=== PATIENT | female | born 1955 | race Caucasian/White ===

== ENCOUNTER 2021-12-28 17:01 | Inpatient (IN) | payer BC, SELFPAY ==
[2021-12-28] VITALS (19 sets, daily range): BP systolic 58–154; BP diastolic 34–106; PULSE 55–89; RESP 9–20; TEMP 36.7; O2SAT 90–96; BMI 37.4
[2021-12-28] MEDS: 0.9 % SODIUM CHLORIDE 1000 ml 1,000 ML IV (18:10)
--- NOTE | 2021-12-28 18:26 | XR_ITS ---
Final Report Patient: KRUNAL GIANG Facility:?[facility] Patient ID:?[id number] Site Patient ID:?[id number]. Site :?[id number] Study:?XRay Chest PORTABLE-12/28/2021 7:12:28 PM Ordering Physician:Juan Carlos Gillette Final Report: INDICATION: Hemoptysis. TECHNIQUE: Chest 1 views. COMPARISON: Chest x-ray from 06/13/2021. FINDINGS: Lungs: Volume loss in the right lung, with mild elevation of the diaphragm. Reticulonodular opacities in the right lung appears similar to prior. No focal consolidation. Pleura: Small right pleural effusion or pleural scarring appears stable. Heart and Mediastinum: The heart is enlarged. The vessels are unremarkable. Bones: Unremarkable. IMPRESSION: Right lung volume loss, with reticulonodular opacities, possibly chronic changes with superimposed infection. Dictated by Raghu Prabhakar MD @ 12/28/2021 7:47:57 PM (Electronic Signature)
--- NOTE | 2021-12-28 18:41 | ED_ITS ---
HPI - General Adult General Time Seen by Provider: 18:40 Date Seen: 12/28/21 Chief complaint: Cough Stated complaint: COUGHING UP BLOOD Time Seen by Provider: 12/28/21 18:01 Source: patient and family Mode of arrival: ambulatory Limitations: no limitations History of Present Illness HPI narrative: Patient is a 66-year-old female presents here ambulatory for evaluation of hemoptysis. Had this now for 3-4 days it primarily occurs in the morning when she coughs up phlegm her entire phlegm is not all bloody, there is blood within some of the phlegm. The day goes on she has episodes of phlegm without blood. She finds herself maybe a little bit more short of breath than normal, some maybe slight right-sided chest discomfort. She has not had any fevers or chills there has been no choking episodes of food. She denies any leg swelling. She has no previous history of DVT as far she knows. Is not on anticoagulants of any sort. She has no radiation of discomfort, she describes it as dull, on it. No diaphoresis or vomiting associated with this. She does have a history of a heart attack, but this. Her tells me this is because her enzymes elevated when she had pneumonia associated with her last visit here. she has a previous history of lung abscess on the left, and subsequent surgery a [facility]. This was thought secondary to aspiration as she has had a previous stroke Onset (ago): day(s) Location: chest Radiation: non-radiation Severity: moderate Quality: dull Pain Consistency: constant Exacerbating factors: none Associated symptoms: other ( hemoptysis) Related Data Home Medications Medication Instructions Recorded Confirmed albuterol sulfate 90 mcg/actuation INHALATION 12/28/21 aerosol inhaler amlodipine 5 mg tablet mg 12/28/21 atorvastatin 40 mg tablet mg 12/28/21 benzonatate 100 mg capsule mg PO 12/28/21 buspirone 15 mg tablet mg 12/28/21 duloxetine 60 mg capsule,delayed mg PO 12/28/21 release furosemide 20 mg tablet mg 12/28/21 hydroxychloroquine 200 mg tablet mg PO 12/28/21 hydroxyzine HCl 50 mg tablet mg 12/28/21 ketoconazole 2 % topical cream applic TOPICAL 12/28/21 levothyroxine 150 mcg tablet mcg 12/28/21 losartan 25 mg tablet mg 12/28/21 miconazole nitrate 2 % topical TOPICAL 12/28/21 powder (Anti-Fungal) mirtazapine 30 mg tablet mg 12/28/21 omeprazole 20 mg capsule,delayed mg 12/28/21 release oxycodone 10 mg tablet mg 12/28/21 oxycodone 20 mg tablet,crush mg PO 12/28/21 resistant,extended release 12 hr (OxyContin) pilocarpine HCl 5 mg tablet mg 12/28/21 pregabalin 300 mg capsule mg 12/28/21 tamsulosin 0.4 mg capsule mg PO 12/28/21 tizanidine 4 mg tablet mg 12/28/21 Allergies Allergy/AdvReac Type Severity Reaction Status Date / Time Sulfa (Sulfonamide Allergy Intermediate Rash Verified 12/28/21 17:24 Antibiotics) preservative Allergy Uncoded 12/28/21 17:24 Review of Systems Status of ROS: Reports: 10 or more systems reviewed and unremarkable except as noted in History and below [facility] Medical History (Updated 12/28/21 @ 22:11 by Nain Root MD) Aphasia as late effect of cerebrovascular accident Aspiration pneumonia Chronic pain Consolidation of right upper lobe of lung COPD (chronic obstructive pulmonary disease) Crohn disease Depression Empyema lung Hyperlipemia Hypothyroid Interstitial lung disease Obesity Sjogrens syndrome Stroke with left hemiparesis Surgical History (Updated 12/28/21 @ 22:11 by Marito Armas MD) H/O lumbar discectomy H/O meniscectomy of right knee H/O vaginal hysterectomy History of total right knee replacement (TKR) S/P breast lumpectomy S/P small bowel resection Status post cholecystectomy Social History Smoking Status: Unknown if ever smoked How often do you have a drink containing alcohol: never AUDIT-C Alcohol total score: 0 Non-prescribed substance use: denies use Exam Const: Vital Signs, click to edit/add: Vital Signs - 24 hr 12/28/21 17:25 12/28/21 17:45 12/28/21 18:00 Temperature 98.0 F Pulse Rate [Right Pulse Oximeter] 69 69 58 L Respiratory Rate 18 18 12 Blood Pressure [Ri ght Upper Arm] 81/54 L 79/61 L 58/35 L Pulse Oximetry 93 92 93 12/28/21 18:15 12/28/21 18:30 12/28/21 19:00 Temperature Pulse Rate [Right Pulse Oximeter] 56 L 60 55 L Respiratory Rate 12 12 20 Blood Pressure [Ri ght Upper Arm] 73/37 L 72/34 L 112/85 Pulse Oximetry 91 96 91 12/28/21 19:15 12/28/21 19:30 12/28/21 19:45 Temperature Pulse Rate [Right Pulse Oximeter] 61 55 L 61 Respiratory Rate 12 12 9 L Blood Pressure [Ri ght Upper Arm] 87/53 L 93/54 L 98/67 Pulse Oximetry 95 95 90 12/28/21 20:00 Temperature Pulse Rate [Right Pulse Oximeter] 71 Respiratory Rate 14 Blood Pressure [Ri ght Upper Arm] 109/68 Pulse Oximetry 95 Documenting provider has reviewed patient's vital signs: yes Common normals : no apparent distress, average body habitus, oriented x3, no limitations and alert General appearance: cooperative and comfortable Nutritional ap pearance: obese centrally obese Orientation/consciousness: Yes awake HENMT: Common normals: normocephalic, head/scalp atraumatic, external ears normal, EAC's normal, TM's normal bilaterally and external nose normal Head and scalp: normocephalic and atraumatic Face and sinus: normal facial exam, sinuses nontender and face symmetric Nose: external nose normal and nares normal External ear: external ears normal and no preauricular adenopathy External auditory canal: EAC's normal Tympanic membrane: TM's normal bilaterally Mouth: oral and palatal mucosa normal Throat: posterior oropharynx normal, tonsils normal and uvula midline Eye: Common normals: PERRL, EOMs intact bilaterally and conjunctivae normal General eye: normal appearance of both eyes Conjunctiva: conjunctiva(e) nor mal Pupil: PERRL EOM: EOM abnormal Neck & C-Spine: Common normals: full ROM, no lymphadenopathy, supple, no meningeal signs and no JVD General: normal visual inspection, trachea midline, anterior neck swelling and lymphadenopathy Cervical spine: cervical ROM normal and normal cervical lordosis Lymph: Lymphatic: no lymphadenopathy noted and no lymphedema noted Chest: Common normals: inspection of chest normal and palpation of chest normal Resp: Common normals: normal respiratory effort, no retractions, no use of accessory muscles, clear to auscultation bilaterally and percussion normal Effort & inspection: able to speak in complete sentences and symmetric chest movement Auscultation: clear to auscultation bilaterally Percussion: percussion normal Cardio: Common normals: no JVD, regular rate, regular rhythm, no rub and peripheral pulses 2+ throughout Rate: regular rate Rhythm: regular rhythm Peripheral pulses: pulses 2+ throughout GI: Common normals: Normal to inspection, nondistended, normoactive bowel sounds present, soft to palpation, non-tender, no hepatosplenomegaly, no masses and no bruits Inspection: normal to inspection Auscultation: normoactive bowel sounds Palpation: soft, firm and no hepatosplenomegaly : Common normals: no CVA tenderness and external appearance normal Bladder/kidney exam: no CVA tenderness Back & Pelvis: Common normals: no CVA tenderness Extremity: Common normals: normal to inspection, full ROM, normal capillary refill, no joint enlargement, no clubbing, cyanosis or edema, no calf tenderness and no pedal edema Neuro: Common normals: oriented x3 Sensorium/orientation: awake and alert Meningeal signs: no meningeal signs Skin: Common normals: no rashes or lesions noted, no wounds, skin turgor normal, no jaundice, no petechiae and no mottling General skin exam: no rashes or lesions noted and turgor normal Course Vital Signs Vital signs: Initial Vital Signs Temperature 98.0 F 12/28/21 17:25 Temperature Source Oral 12/28/21 17:25 Pulse Rate 69 12/28/21 17:25 Respiratory Rate 18 12/28/21 17:25 Blood Pressure 81/54 L 12/28/21 17:25 Blood Pressure Mean 63 12/28/21 17:25 Blood Pressure Position Sitting 12/28/21 17:25 Pulse Oximetry 93 12/28/21 17:25 Oxygen Delivery Method 12/28/21 17:25 Vital Signs Temperature 98.0 F 12/28/21 17:25 Pulse Rate 69 12/28/21 17:25 Respiratory Rate 18 12/28/21 17:25 Blood Pressure 81/54 L 12/28/21 17:25 Pulse Oximetry 93 12/28/21 17:25 Temperature 98.0 F 12/28/21 17:25 Pulse Rate 71 12/28/21 20:00 Respiratory Rate 14 12/28/21 20:00 Blood Pressure 109/68 12/28/21 20:00 Pulse Oximetry 95 12/28/21 20:00 Medical Decision Making MDM Narrative Medical decision making narrative: Patient is seen and assessed. She has hemoptysis, and vague right-sided chest discomfort too. Suspect that she may have had an aspiration episode. Again sub clinically as she has a history of this in the past which led to her thoracic surgery for her empyema. Her chest x-ray is abnormal. Her CT scan does show evidence of consolidation although it is hard to tell if this is new or old. She has not had any further episodes of hemoptysis but her hemoglobin is on the lower side at 9.4. I discussed her case with my hospitalist. He agreed to admit her overnight to the hospital for further treatment and diagnostic needs. She is stable I do not think that she has sepsis kick was once we changed out her blood pressure cuff she had normal blood pressures. Her lactate being normal also mitigates against this. During the evaluation of this patient I considered multiple differential diagnosis is. The life-threatening differential diagnosis include coronary disease/MO, pulmonary embolism, pneumothorax, pneumonia, and aortic dissection. Other differential diagnosis included but were not limited to pericarditis, myocarditis, chest wall pain, GERD, esophageal rupture, rib fracture contusion, pleurisy, as well as other etiologies. Medical Records Medical records reviewed: Yes I reviewed the patient's medical records Lab Data Lab results reviewed: Yes I reviewed the patient's lab results Labs: Lab Results 12/28/21 12/28/21 12/28/21 Range/Units 18:10 18:10 18:10 WBC 6.05 (4.50-11.00) K/uL RBC 3.43 L (4.00-5.20) m/uL Hgb 9.4 L (12.0-16.0) gm/dL Hct 31.2 L (33.0-51.0) % MCV 91 (80-100) fL MCH 27 (26-34) pg MCHC 30 L (32-36) gm/dL RDW Coeff of Kaley 13.8 (11.5-15.5) % Plt Count 259 (140-440) K/uL Neut % (Auto) 70.8 (42.0-72.0) % Lymph % (Auto) 16.2 L (20-44) % [place] % (Auto) 7.8 (0.0-11.0) % Eos % (Auto) 4.3 (0.0-7.0) % Baso % (Auto) 0.7 (0.0-3.0) % Neut # (Auto) 4.29 (1.7-7.0) K/uL Lymph # (Auto) 1.00 (0.90-2.90) K/uL [place] # (Auto) 0.50 (0.00-0.90) K/UL Eos # (Auto) 0.26 (0.00-0.50) K/uL Baso # (Auto) 0.04 (0.00-0.30) K/uL Abs Immat Gran (auto) 0.01 (0.00-0.30) K/uL INR 0.96 (0.91-1.10) APTT 37 H (23-33) Seconds Sodium 138 (135-149) mmol/L Potassium 4.3 (3.6-5.1) mmol/L Chloride 107 (96-114) mmol/L Carbon Dioxide 26 (20-32) mmol/L BUN 27 (7-30) mg/dL Creatinine 1.1 (0.5-1.5) mg/dL Estimated Creat Clear 46.49 Glucose 110 (60-115) mg/dL Calcium 8.6 (8.4-10.6) mg/dL Troponin I < 0.01 L (0.01-0.04) ng/mL NT-Pro-B Natriuret Pep 277 H (0-125) PG/mL SARS-CoV-2 (PCR) (Negative) 12/28/21 Range/Units 18:32 WBC (4.50-11.00) K/uL RBC (4.00-5.20) m/uL Hgb (12.0-16.0) gm/dL Hct (33.0-51.0) % MCV (80-100) fL MCH (26-34) pg MCHC (32-36) gm/dL RDW Coeff of Kaley (11.5-15.5) % Plt Count (140-440) K/uL Neut % (Auto) (42.0-72.0) % Lymph % (Auto) (20-44) % [place] % (Auto) (0.0-11.0) % Eos % (Auto) (0.0-7.0) % Baso % (Auto) (0.0-3.0) % Neut # (Auto) (1.7-7.0) K/uL Lymph # (Auto) (0.90-2.90) K/uL [place] # (Auto) (0.00-0.90) K/UL Eos # (Auto) (0.00-0.50) K/uL Baso # (Auto) (0.00-0.30) K/uL Abs Immat Gran (auto) (0.00-0.30) K/uL INR (0.91-1.10) APTT (23-33) Seconds Sodium (135-149) mmol/L Potassium (3.6-5.1) mmol/L Chloride (96-114) mmol/L Carbon Dioxide (20-32) mmol/L BUN (7-30) mg/dL Creatinine (0.5-1.5) mg/dL Estimated Creat Clear Glucose (60-115) mg/dL Calcium (8.4-10.6) mg/dL Troponin I (0.01-0.04) ng/mL NT-Pro-B Natriuret Pep (0-125) PG/mL SARS-CoV-2 (PCR) Negative SARS-CoV-2 (Negative) Imaging Data CT scan - chest: My impression: Abnormal CT with right lung consolidation. There is some infiltrates also. Chest x-ray is abnormal with right lung infiltrates. Consolidation noted with scarring also. Radiologist's impression: Patient: KRUNAL GIANG Facility:?[facility] Patient ID:?[id number] Site Patient ID:?[id number]. Site :?[id number] Study:?CT Chest PE W/ ISOVUE 370 95CC-12/28/2021 9:31:51 PM Ordering Physician:Juan Carlos Gillette Final Report: INDICATION: Hemoptysis. TECHNIQUE: CT chest PE was acquired with 95 cc Isovue 370 IV contrast. COMPARISON: CT chest 06/08/2021. FINDINGS: Heart and vasculature: Contrast opacification of the pulmonary arterial tree is adequate. No sign of pulmonary embolism. Heart size is normal. Thoracic aorta an d pulmonary artery are normal in caliber. Lungs and pleural: Reticulonodular opacities throughout right lung. Masslike consolidation right upper lobe measuring 3.2 by 2.5 cm. Right pleural thickening . No pleural effusion present atelectasis the right middle lobe with air bronchograms. More focal masslike consolidation in the posterior lower right upper lobe measuring 1.8 x 2.0 cm. Scarring/atelectasis in the left lung. Left lung is mostly clear. Lymph nodes/mediastinum: Enlarged right hilar lymph node measuring 13 mm in short axis. Right paratracheal lymph node measuring 14 mm in short axis. Chest wall: No masses. Upper abdomen: Moderate size hiatal hernia present is absent. Bones: Unremarkable for age. IMPRESSION: 1. No evidence of pulmonary embolism. 2. Diffuse reticulonodular opacities in right lung with pleural thickening and areas of masslike consolidation in the right upper lobe is improved compared to CT 06/08/2021. Findings may be due to infection although are indeterminate. 3. Nonspecific mild right paratracheal and right hilar lymphadenopathy. 4. Right middle lobe atelectasis. Please note that all CT scans at this facility use dose modulation, iterative reconstruction, and/or weight-based dosing when appropriate to reduce radiation dose to as low as reasonably achievable. Dictated by Chris Gupta MD @ 12/28/2021 9:45:19 PM (Electronic Signature) ECG Data Attestation: I personally reviewed and interpreted this ECG as follows: (Normal sinus rhythm normal EKG with no acute ST wave changes. With a ventricular rate of 61) Prior ECG tracings: available for review Critical Care Time Critical Care Time Critical Care Time: Yes (45 min) Attestation: The patient required my highest level preparedness to intervene emergently and I personally spent this critical care time directly and personally managing the patient. This critical care time included: Obtaining a history; Examining the patient; Pulse oximetry; Ordering and reviewing of studies; Arranging urgent treatment with development of a management plan; Evaluation of patients response to treatment; Frequent reassessment discussions with other providers. This critical care time was performed to assess and manage the high probability of imminent life-threatening deterioration that could result in multiorgan failure. It was exclusive of separate billable procedures and treating other patients and teaching time. Total Critical Care Time in Minutes: 45 Discharge Plan Discharge Clinical Impression: Consolidation of right upper lobe of lung, Anemia, Aspiration pneumonia Patient Disposition: Admitted As Inpatient Prescriptions: No Action atorvastatin 40 mg tablet 0RF Label Comments: TAKE 1 TABLET BY MOUTH EVERY DAY pilocarpine HCl 5 mg tablet 0RF Label Comments: TAKE 1 TABLET BY MOUTH THREE TIMES A DAY tizanidine 4 mg tablet 0RF Label Comments: Take 1-2 tablet by mouth every six to eight hours as needed for muscle spasms Anti-Fungal 2 % powder TOPICAL 0RF Label Comments: APPLY TO AFFECTED AREAS 2 TIMES DAILY hydroxyzine HCl 50 mg tablet 0RF Label Comments: TAKE 1-2 TABLETS (50-100 MG) BY MOUTH EVERY 6 HOURS IF NEEDED FOR ITCHING OR OTHER amlodipine 5 mg tablet 0RF Label Comments: TAKE 1 TABLET BY MOUTH EVERY DAY tamsulosin 0.4 mg capsule PO 0RF Label Comments: TAKE 1 CAPSULE BY MOUTH ONCE DAILY AFTER A MEAL. benzonatate 100 mg capsule PO 0RF Label Comments: TAKE 1-2 CAPSULES (100-200 MG) BY MOUTH 3 TIMES DAILY IF NEEDED FOR COUGH. mirtazapine 30 mg tablet 0RF Label Comments: TAKE 1 TABLET BY MOUTH AT BEDTIME. levothyroxine 150 mcg tablet 0RF Label Comments: TAKE 1 TABLET (150 MCG) BY MOUTH BEFORE BREAKFAST. losartan 25 mg tablet 0RF Label Comments: TAKE 1 TABLET BY MOUTH EVERY DAY omeprazole 20 mg capsule,delayed release(DR/EC) 0RF Label Comments: TAKE 1 CAPSULE (20 MG) BY MOUTH ONCE DAILY BEFORE A MEAL. furosemide 20 mg tablet 0RF Label Comments: TAKE 1 TABLET (20 MG) BY MOUTH EVERY MORNING. IF NEEDED. MAY TAKE IF WEIGHT INCREASES BY 3# OR MORE hydroxychloroquine 200 mg tablet PO 0RF Label Comments: TAKE 1 TABLET BY MOUTH TWICE A DAY albuterol sulfate 90 mcg/actuation HFA aerosol inhaler INHALATION 0RF Label Comments: INHALE 1-2 PUFFS BY MOUTH EVERY 4 HOURS IF NEEDED. ketoconazole 2 % cream TOPICAL 0RF Label Comments: APPLY TO AFFECTED AREA TWICE A DAY buspirone 15 mg tablet 0RF Label Comments: TAKE 1 TABLET BY MOUTH TWICE A DAY duloxetine 60 mg capsule,delayed release(DR/EC) PO 0RF Label Comments: TAKE 2 CAPSULES (120MG) BY MOUTH ONCE DAILY. pregabalin 300 mg capsule 0RF Label Comments: TAKE 1 CAPSULE BY MOUTH TWICE A DAY oxycodone 10 mg tablet 0RF Label Comments: TAKE 1 TABLET BY MOUTH EVERY FOUR HOURS NEEDED FOR PAIN MAXIMUM OF 6 TABLETS/DAY. oxycodone [OxyContin] 20 mg tablet,oral only,ext.rel.12 hr PO 0RF Label Comments: TAKE 1 TABLET BY MOUTH THREE TIMES A DAY Follow Up/Referrals: Provider,Not a Local [Primary Care Provider] -
--- NOTE | 2021-12-28 18:42 | ED.NURSE ---
1757-MD aware of BP 70s/30s. Pt a + o x4. 1812- MD at bedside for exam.
[2021-12-28 19:01] LABS: Basophils Absolute Auto 0.04 K/uL (0.00-0.30); Basophils Percent Auto 0.7 % (0.0-3.0); Eosinophils Absolute Auto 0.26 K/uL (0.00-0.50); Eosinophils Percent Auto 4.3 % (0.0-7.0); Hematocrit 31.2 % (33.0-51.0); Hemoglobin* 9.4 gm/dL (12.0-16.0); Immature Granulocytes Abs Auto 0.01 K/uL (0.00-0.30); Lymphocytes Percent Auto 16.2 % (20-44); Mean Corpuscular HGB Conc 30 gm/dL (32-36); Mean Corpuscular Hemoglobin 27 pg (26-34); Mean Corpuscular Volume 91 fL (80-100); Monocytes Percent Auto 7.8 % (0.0-11.0); Neutrophils Absolute Auto 4.29 K/uL (1.7-7.0); Neutrophils Percent Auto 70.8 % (42.0-72.0); Platelet Count* 259 K/uL (140-440); RDW Coefficient of Variation % 13.8 % (11.5-15.5); Red Blood Count 3.43 m/uL (4.00-5.20); White Blood Count* 6.05 K/uL (4.50-11.00)
--- NOTE | 2021-12-28 19:17 | ED.NURSE ---
1813-1st set of blood cx drawn. 1823- COVID swab obtained and sent to lab. 1834- 2nd IV started by CLAY Dang. #20G IV established in R AC. 2nd set of blood cx drawn at that time. 1854- Moved to Rm 8. at bedside. 1909-Pt continues a + o x4. aware of continued hypotension. Report given to CLAY De Luna.
[2021-12-28 19:24] LABS: Slide Review Reflex No
[2021-12-28] MEDS: PIPERACILLIN/TAZOBACTAM 3.375 GM in 0.9 % SODIUM CHLORIDE Mini-bag 100 ML IVPB (19:25)
[2021-12-28 19:50] LABS: SARS PCR* Negative SARS-CoV-2 (Negative)
--- NOTE | 2021-12-28 19:53 | CT_ITS ---
Final Report Patient: KRUNAL GIANG Facility:?[facility] Patient ID:?[id number] Site Patient ID:?[id number]. Site :?[id number] Study:?CT Chest PE W/ ISOVUE 370 95CC-12/28/2021 9:31:51 PM Ordering Physician:Juan Carlos Gillette Final Report: INDICATION: Hemoptysis. TECHNIQUE: CT chest PE was acquired with 95 cc Isovue 370 IV contrast. COMPARISON: CT chest 06/08/2021. FINDINGS: Heart and vasculature: Contrast opacification of the pulmonary arterial tree is adequate. No sign of pulmonary embolism. Heart size is normal. Thoracic aorta and pulmonary artery are normal in caliber. Lungs and pleural: Reticulonodular opacities throughout right lung. Masslike consolidation right upper lobe measuring 3.2 by 2.5 cm. Right pleural thickening. No pleural effusion present atelectasis the right middle lobe with air bronchograms. More focal masslike consolidation in the posterior lower right upper lobe measuring 1.8 x 2.0 cm. Scarring/atelectasis in the left lung. Left lung is mostly clear. Lymph nodes/mediastinum: Enlarged right hilar lymph node measuring 13 mm in short axis. Right paratracheal lymph node measuring 14 mm in short axis. Chest wall: No masses. Upper abdomen: Moderate size hiatal hernia present is absent. Bones: Unremarkable for age. IMPRESSION: 1. No evidence of pulmonary embolism. 2. Diffuse reticulonodular opacities in right lung with pleural thickening and areas of masslike consolidation in the right upper lobe is improved compared to CT 06/08/2021. Findings may be due to infection although are indeterminate. 3. Nonspecific mild right paratracheal and right hilar lymphadenopathy. 4. Right middle lobe atelectasis. Please note that all CT scans at this facility use dose modulation, iterative reconstruction, and/or weight-based dosing when appropriate to reduce radiation dose to as low as reasonably achievable. Dictated by Chris Gupta MD @ 12/28/2021 9:45:19 PM (Electronic Signature)
[2021-12-28 20:32] LABS: Lactate Sepsis w/Reflex* 0.9
[2021-12-28 20:48] LABS: NT Pro B Type NatriureticPept* 277 PG/mL (0-125)
[2021-12-28 20:51] LABS: INR 0.96 (0.91-1.10); Prothrombin Time 13.2 Seconds
[2021-12-28 20:52] LABS: Partial Thromboplastin Time* 37 Seconds (23-33)
[2021-12-28 21:08] LABS: Blood Urea Nitrogen* 27 mg/dL (7-30); Calcium* 8.6 mg/dL (8.4-10.6); Carbon Dioxide* 26 mmol/L (20-32); Chloride* 107 mmol/L (96-114); Creatinine* 1.1 mg/dL (0.5-1.5); Est. Creatinine Clearance* 46.49; Estimated Glomerular Filt Rate 56.11; Potassium* 4.3 mmol/L (3.6-5.1); Sodium* 138 mmol/L (135-149)
[2021-12-28 21:09] LABS: Glucose* 110 mg/dL (60-115); Troponin I* < 0.01 ng/mL (0.01-0.04)
--- NOTE | 2021-12-28 22:45 | PC.NURSE ---
Phone report to CLAY Caraballo on m/s.
--- NOTE | 2021-12-28 23:15 | P.IMHP_ITS ---
Hospitalist- H&P: HPI History of Present Illness Time Seen by Provider: 23:37 Date Seen: 12/28/21 Chief complaint: COUGHING UP BLOOD Narrative: Cyndi Mcnally is a 66 year old female with 4 day history of hemoptysis. Patient reports that typically once a day for the last 4 days she has coughed up blood in mucus and filled a tissue paper with that in the morning. She has not had a fever. She has not had any worsening shortness of breath. She has not had chest pain. No previous history of hemoptysis. She takes aspirin 325 mg daily. April 2022 she had an empyema. She went to [facility] where they did thoracotomy and cleaned out her right pleural space. She has had since that time a right upper lobe mass of uncertain significance. serial CT of the chest shows improvement over the last 6 months but not resolution of that right upper lobe mass. She was told that her empyema was due to aspiration pneumonia. She did have a swallowing study in August which showed mild pharyngeal dysphagia with occasional transient penetration of thin liquids and no aspiration. She has a remote history of a stroke in 2006. This caused aphasia and left- sided weakness. Both of those are markedly improved. She reports ongoing fatigue and weakness since April of 2022. She did not get home from that hospitalization until new 's Marya. She is gradually improving her strength. She tells me now she mostly walks with a cane Or holding onto harden and furniture in her house. Review of Systems Narrative: She reports she has generally been feeling well other than her very slow recovery from her hospitalization in April. she reports no acute respiratory illness, chest pain, trouble breathing, nausea, vomiting, abdominal pain, diarrhea, constipation, melena, urinary problems. Complete review of systems otherwise unremarkable. [facility] Medical History (Updated 12/28/21 @ 23:47 by Marito Armas MD) Aphasia as late effect of cerebrovascular accident Aspiration pneumonia Chronic pain Consolidation of right upper lobe of lung COPD (chronic obstructive pulmonary disease) Crohn disease Depression Empyema lung Hemoptysis Hyperlipemia Hypotension Hypothyroid Interstitial lung disease Obesity Sjogrens syndrome Stroke with left hemiparesis Surgical History H/O lumbar discectomy H/O meniscectomy of right knee H/O vaginal hysterectomy History of total right knee replacement (TKR) S/P breast lumpectomy S/P small bowel resection Status post cholecystectomy Family History (Updated 12/28/21 @ 23:45 by Marito Armas MD) Other Alcohol use disorder Breast cancer High blood pressure Pancreatic cancer Social History Smoking Status: Unknown if ever smoked How often do you have a drink containing alcohol: never AUDIT-C Alcohol total score: 0 Non-prescribed substance use: denies use Meds Home Medications and Allergies Home Medications Medication Instructions Recorded Confirmed Type albuterol sulfate 90 mcg/actuation INHALATION 12/28/21 History aerosol inhaler amlodipine 5 mg tablet mg 12/28/21 History atorvastatin 40 mg tablet mg 12/28/21 History benzonatate 100 mg capsule mg PO 12/28/21 History buspirone 15 mg tablet mg 12/28/21 History duloxetine 60 mg capsule,delayed mg PO 12/28/21 History release furosemide 20 mg tablet mg 12/28/21 History hydroxychloroquine 200 mg tablet mg PO 12/28/21 History hydroxyzine HCl 50 mg tablet mg 12/28/21 History ketoconazole 2 % topical cream applic TOPICAL 12/28/21 History levothyroxine 150 mcg tablet mcg 12/28/21 History losartan 25 mg tablet mg 12/28/21 History miconazole nitrate 2 % topical TOPICAL 12/28/21 History powder (Anti-Fungal) mirtazapine 30 mg tablet mg 12/28/21 History omeprazole 20 mg capsule,delayed mg 12/28/21 History release oxycodone 10 mg tablet mg 12/28/21 History oxycodone 20 mg tablet,crush mg PO 12/28/21 History resistant,extended release 12 hr (OxyContin) pilocarpine HCl 5 mg tablet mg 12/28/21 History pregabalin 300 mg capsule mg 12/28/21 History tamsulosin 0.4 mg capsule mg PO 12/28/21 History tizanidine 4 mg tablet mg 12/28/21 History Allergies Allergy/AdvReac Type Severity Reaction Status Date / Time Sulfa (Sulfonamide Allergy Intermediate Rash Verified 12/28/21 17:24 Antibiotics) preservative Allergy Uncoded 12/28/21 17:24 Exam Narrative: Exam Narrative: she is alert and appears in no distress. She gives her own history. Eyes are normal. Oropharynx normal. Neck is supple without mass or adenopathy. Respirations show notable for relatively diffuse crackles in the mid to lower right lung base. Upper lung earl and left lung relatively clear to auscultation. Minimal wheezing in the right lung as well. Cardiovascular: S1, S2, regular rate and rhythm. No murmur gallop or rub. Abdomen: Bowel sounds active. Abdomen is soft without tenderness or mass. External genitalia normal. Extremities normal. 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 She has intact pedal pulses. Strength is relatively equal in upper and lower extremities except she has a footdrop on the left. Const: Vital Signs, click to edit/add: Vital Signs - 24 hr 12/28/21 17:25 12/28/21 17:45 12/28/21 18:00 Temperature 98.0 F Pulse Rate [Right Pulse Oximeter] 69 69 58 L Respiratory Rate 18 18 12 Blood Pressure [Ri ght Upper Arm] 81/54 L 79/61 L 58/35 L Pulse Oximetry 93 92 93 12/28/21 18:15 12/28/21 18:30 12/28/21 19:00 Temperature Pulse Rate [Right Pulse Oximeter] 56 L 60 55 L Respiratory Rate 12 12 20 Blood Pressure [Ri ght Upper Arm] 73/37 L 72/34 L 112/85 Pulse Oximetry 91 96 91 12/28/21 19:15 12/28/21 19:30 12/28/21 19:45 Temperature Pulse Rate [Right Pulse Oximeter] 61 55 L 61 Respiratory Rate 12 12 9 L Blood Pressure [Ri ght Upper Arm] 87/53 L 93/54 L 98/67 Pulse Oximetry 95 95 90 12/28/21 20:00 12/28/21 20:15 12/28/21 20:30 Temperature Pulse Rate [Right Pulse Oximeter] 71 69 70 Respiratory Rate 14 17 12 Blood Pressure [Ri ght Upper Arm] 109/68 111/70 118/66 Pulse Oximetry 95 95 90 12/28/21 20:45 12/28/21 21:00 12/28/21 21:30 Temperature Pulse Rate [Right Pulse Oximeter] 73 78 89 Respiratory Rate 13 16 16 Blood Pressure [Ri ght Upper Arm] 81/64 L 114/65 154/56 H Pulse Oximetry 93 93 95 12/28/21 21:45 12/28/21 22:00 12/28/21 22:15 Temperature Pulse Rate [Right Pulse Oximeter] 83 84 83 Respiratory Rate 10 L 11 L 18 Blood Pressure [Ri ght Upper Arm] 128/106 H 112/94 H 131/70 Pulse Oximetry 93 12/28/21 22:30 Temperature Pulse Rate [Right Pulse Oximeter] 81 Respiratory Rate 14 Blood Pressure [Ri ght Upper Arm] 120/100 H Pulse Oximetry Hospitalist - H&P: Result Labs Labs: Short CBC 12/28/21 Range/Units 18:10 WBC 6.05 (4.50-11.00) K/uL Hgb 9.4 L (12.0-16.0) gm/dL Hct 31.2 L (33.0-51.0) % Plt Count 259 (140-440) K/uL BMP 12/28/21 18:10 Sodium 138 Potassium 4.3 Chloride 107 Carbon Dioxide 26 BUN 27 Creatinine 1.1 Glucose 110 Calcium 8.6 Cardiac Enzymes 12/28/21 Range/Units 18:10 Troponin I < 0.01 L (0.01-0.04) ng/mL Assessment and Plan Assessment and plan (1) Aspiration pneumonia: Problem comment: swallowing evaluation showed mild pharyngeal dysphagia with occasional transient penetration of thin liquids and no aspiration 08/09/2021 Status: Acute (2) Consolidation of right upper lobe of lung: Status: Acute (3) Hemoptysis: Status: Acute (4) Hypotension: Status: Acute Plan 1. patient presents with 4 days of hemoptysis. This is not yet massive hemoptysis. The source for this is likely her right upper lobe where she has a mass and possible pneumonia. Will treat with antibiotics and monitor for ongoing bleeding. May need bronchoscopy to further evaluate if not clinically improving. Will hold aspirin and anticoagulation for now. 2. Possible pneumonia . Treat with antibiotics pending clinical course. In the ER there was concern about hypotension and concern about sepsis. Broad- spectrum antibiotics were initiated. brief hold on blood pressure medications and monitor blood pressure. 3. Consolidation or mass in the right upper lobe of uncertain etiology. May need outpatient evaluation for this with pulmonology. 4. Frailty. PT and OT to assess for safety in the home. 5. Polypharmacy. She has on relatively high doses of multiple medications that affect the brain particularly, especially oxycodone. Ongoing outpatient evaluation warranted
[2021-12-28] MEDS: MIRTAZAPINE 15 MG TABLET 30 MG PO (23:44)
[2021-12-28] MEDS: DULOXETINE 30 MG CAPSULE DR 120 MG PO (23:46)
[2021-12-28] MEDS: OXYCODONE 5 MG TABLET 10 MG PO (23:48)
[2021-12-29] VITALS (12 sets, daily range): BP systolic 145–173; BP diastolic 84–109; PULSE 57–156; RESP 16–20; TEMP 36.5–36.9; O2SAT 92–96; BMI 38.7
[2021-12-29] MEDS: PREGABALIN 50 MG CAPSULE 200 MG PO (00:06)
[2021-12-29] MEDS: PIPERACILLIN/TAZOBACTAM 3.375 GM in 0.9 % SODIUM CHLORIDE Mini-bag 100 ML IVPB ×4 (02:33→22:11)
[2021-12-29] MEDS: SODIUM CHLORIDE 0.9 % (FLUSH) 10 ML SYRINGE 5 ML IVF ×4 (02:34→21:19)
[2021-12-29] MEDS: 0.9 % SODIUM CHLORIDE 250 ml IV (02:34)
[2021-12-29] MEDS: ACETAMINOPHEN 500 MG TABLET 1000 MG PO (04:03)
[2021-12-29] MEDS: OXYCODONE 5 MG TABLET 10 MG PO ×4 (04:03→21:15)
[2021-12-29] MEDS: LEVOTHYROXINE 50 MCG TABLET PO (06:33)
[2021-12-29] MEDS: LEVOTHYROXINE 100 MCG TABLET PO (06:33)
[2021-12-29] MEDS: OMEPRAZOLE 20 MG CAPSULE DR PO (06:33)
[2021-12-29 06:43] LABS: Basophils Absolute Auto 0.04 K/uL (0.00-0.30); Basophils Percent Auto 0.6 % (0.0-3.0); Eosinophils Absolute Auto 0.33 K/uL (0.00-0.50); Eosinophils Percent Auto 4.8 % (0.0-7.0); Hematocrit 31.5 % (33.0-51.0); Hemoglobin* 9.5 gm/dL (12.0-16.0); Immature Granulocytes Abs Auto 0.01 K/uL (0.00-0.30); Lymphocytes Percent Auto 14.3 % (20-44); Mean Corpuscular HGB Conc 30 gm/dL (32-36); Mean Corpuscular Hemoglobin 28 pg (26-34); Mean Corpuscular Volume 91 fL (80-100); Monocytes Percent Auto 9.2 % (0.0-11.0); Neutrophils Absolute Auto 4.87 K/uL (1.7-7.0); Platelet Count* 225 K/uL (140-440); Red Blood Count 3.45 m/uL (4.00-5.20); White Blood Count* 6.86 K/uL (4.50-11.00)
[2021-12-29 06:47] LABS: Slide Review Reflex No
[2021-12-29 06:48] LABS: Immature Reticulocyte Fraction 5.2 % (3.0-15.9); Reticulocyte Percent 2.3 % (0.5-2.0); Reticulocytes Absolute 0.08 # (0.03-0.08)
[2021-12-29 07:08] LABS: Chloride* 109 mmol/L (96-114); Iron* 44 ug/dL (37-170); Sodium* 140 mmol/L (135-149)
[2021-12-29 07:09] LABS: Potassium* 4.4 mmol/L (3.6-5.1)
[2021-12-29 07:11] LABS: Carbon Dioxide* 27 mmol/L (20-32); Creatinine* 0.8 mg/dL (0.5-1.5); Est. Creatinine Clearance* 51.14; Estimated Glomerular Filt Rate 82.23
[2021-12-29 07:12] LABS: Blood Urea Nitrogen* 20 mg/dL (7-30); Calcium* 8.4 mg/dL (8.4-10.6); Glucose* 98 mg/dL (60-115)
[2021-12-29 07:18] LABS: Percent Iron Saturation 18 % (20-50); Total Iron Binding Capacity 249 ug/dL (265-497)
--- NOTE | 2021-12-29 07:27 | PC.NURSE ---
Shift note: The pt has been pleasant and cooperative. She was in RA before going to Bed with Spo2 in the 90s, The pt stated that she uses 2L of oxygen via NC at HS; So 2L of oxygen via NC was given with Spo2 in the 90s. No blood emesis or sputum noted since admission. Bp has been improved -see chart. No fever noted. Weakness noted; fall precaution in place - 1-assist with a gait belt and walker. The pt was reporting moderate chronic pain; the pain has been managed with schedule and PRN pain medication.
[2021-12-29] MEDS: BUSPIRONE 10 MG TABLET 15 MG PO ×2 (09:31→21:14)
[2021-12-29] MEDS: polyethylene glycoL 3350 17 GM PACK PO (09:31)
[2021-12-29] MEDS: HYDROXYCHLOROQUINE 200 MG TABLET PO ×2 (09:32→21:14)
[2021-12-29] MEDS: PREGABALIN 100 MG CAPSULE 200 MG PO ×2 (09:32→21:16)
[2021-12-29] MEDS: ASPIRIN EC 325 MG TABLET PO (09:33)
[2021-12-29] MEDS: CETIRIZINE HCL 10 MG TABLET PO (09:36)
[2021-12-29] MEDS: METOPROLOL TARTRATE 50 MG TABLET PO ×2 (09:36→21:14)
[2021-12-29] MEDS: TAMSULOSIN HCL 0.4 MG CAPSULE PO (09:39)
[2021-12-29] MEDS: SENNOSIDES/DOCUSATE TABLET 1 TAB PO (11:24)
--- NOTE | 2021-12-29 12:00 | PM.EN ---
Chart Event Note Chart Event Note: Daily Progress Note - Hospital Medicine Day #: 2 CC: Coughing up blood OVERNIGHT UPDATES FROM STAFF & MED, LAB, IMAGING UPDATES Since admission patient has not had any more coughing up of blood. I was able to speak with pulmonary medicine, someone from Dr. Brennan's team. We discussed her chronic aspiration, recent CT findings. We felt his if her recurrent aspiration and aspirin therapy were likely the cause of mild hemoptysis. We will discharge her on Augmentin and get her in for bronchoscopy. Review of Systems: See subjective Cardiac: No new chest pain/pressure/palpitations. Respiratory: no new dyspnea. No more coughing blood GI: No abdominal bloating Objective: Vitals: see above Lungs: Clear. Cardiac: S1S2. No harsh murmurs Trace edema Disposition/Potential discharge - Likely to return to previous living situation. A/P 1. Hemoptysis -chronic aspiration pneumonia likely causing this with her superimposed aspirin therapy. Trend hemoglobin, appears stable. Likely will discharge today or tomorrow with outpatient follow-up. Total time is 25 minutes with greater than 50% spent in counseling and coordination of care.
--- NOTE | 2021-12-29 15:45 | PC.NURSE ---
shift note: vss stable. pt up 1/walker to bathroom and into recliner. pt states she's sob with minimal activity. pt producing light yellow phlem with cough. RUL with crkls and dim in mid/lower lobes. pt has crkls to LLL. sats 91-96%. Pt on cont sats. pt using 2L pnc when resting in bed to keep sats > 90%. Pt has chronic back and leg pain that she's rating 4-8/10 and was medicated with prn oxycodone and scheduled oxycodone with minimal relief. Pt IV dc'd intact Rt AC. Pt tolerating regular diet. Pt states Lt lat calf with increased pain and increased swelling to lt foot. Qc Chemist checked leg and noticed Lt foot is 1+ edema with +PP and cap refill intact. Pt has no redness to lt calf and calf is soft on palpation. pt has drop foot to lt .
[2021-12-29] MEDS: DULOXETINE 30 MG CAPSULE DR 120 MG PO (21:15)
[2021-12-29] MEDS: MIRTAZAPINE 15 MG TABLET 30 MG PO (21:16)
[2021-12-29] MEDS: ATORVASTATIN CALCIUM 40 MG TABLET PO (21:19)
--- NOTE | 2021-12-29 22:49 | PC.NURSE ---
End of Shift: Patient pleasant and cooperative. Afebrile. Rating chronic pain 6-8/10 and controlled with scheduled OxyContin and PRN Oxycodone. Patient up to bathroom and chair with 1 assist, walker and gait belt. Tolerating regular diet with no nausea. Occasionally coughing up phlegm with no blood noted. O2 sats greater than 90% on room air.
[2021-12-30 00:30] VITALS: BP 160/76; PULSE 59; RESP 16; TEMP 36.8; O2SAT 96
[2021-12-30 00:47] VITALS: TEMP 36.8
[2021-12-30] MEDS: ACETAMINOPHEN 500 MG TABLET 1000 MG PO ×2 (00:47→08:13)
[2021-12-30] MEDS: OXYCODONE 5 MG TABLET 10 MG PO ×3 (01:38→13:20)
[2021-12-30] MEDS: PIPERACILLIN/TAZOBACTAM 3.375 GM in 0.9 % SODIUM CHLORIDE Mini-bag 100 ML IVPB ×2 (04:14→10:27)
[2021-12-30 05:07] VITALS: BP 163/96; PULSE 55; RESP 16; TEMP 36.7; O2SAT 96
[2021-12-30] MEDS: LEVOTHYROXINE 50 MCG TABLET PO (06:19)
[2021-12-30] MEDS: OMEPRAZOLE 20 MG CAPSULE DR PO (06:19)
[2021-12-30] MEDS: LEVOTHYROXINE 100 MCG TABLET PO (06:19)
[2021-12-30 06:26] LABS: Reticulocyte Hemoglobin Equivi 24.1 pg (29.0-35.0)
[2021-12-30 07:00] VITALS: BP 223/127; PULSE 65; PULSE 73; RESP 20; TEMP 36.5; O2SAT 94
--- NOTE | 2021-12-30 07:15 | PC.NURSE ---
Shift Note [id number]: Pt pleasant and cooperative. Pt VSS with the use of 2L supplemental oxygen via NC. Afebrile. Pt rates back pain 7/10 with little relief with pain medications. Pt states lower back pain comes and goes and pain will occasionally shoot down both legs. Pt ambulates with walker, GB, A1; Tolerated activity well. Pt denies chest pain, SOB, N/V. Pt slept well.
[2021-12-30 07:28] LABS: Hematocrit 33.9 % (33.0-51.0); Hemoglobin* 10.1 gm/dL (12.0-16.0); Mean Corpuscular HGB Conc 30 gm/dL (32-36); Mean Corpuscular Hemoglobin 27 pg (26-34); Mean Corpuscular Volume 92 fL (80-100); Platelet Count* 265 K/uL (140-440); Red Blood Count 3.69 m/uL (4.00-5.20); White Blood Count* 4.37 K/uL (4.50-11.00)
[2021-12-30 07:40] LABS: Chloride* 105 mmol/L (96-114); Sodium* 140 mmol/L (135-149)
[2021-12-30 07:41] LABS: Potassium* 4.2 mmol/L (3.6-5.1)
[2021-12-30 07:43] LABS: Blood Urea Nitrogen* 13 mg/dL (7-30); Carbon Dioxide* 33 mmol/L (20-32); Cholesterol* 162 mg/dL (90-199); Creatinine* 0.7 mg/dL (0.5-1.5); Est. Creatinine Clearance* 51.14; Estimated Glomerular Filt Rate 96.52
[2021-12-30 07:44] LABS: Glucose* 100 mg/dL (60-115); HDL Cholesterol* 59 mg/dL (>=50); LDL Cholesterol Calculated 81 mg/dL (<100); Magnesium* 1.7 mg/dL (1.5-2.6); Triglycerides* 109 mg/dL (40-149)
[2021-12-30 07:53] LABS: Slide Review Reflex No
[2021-12-30 09:12] LABS: Procalcitonin* 0.21 ng/mL (<0.50)
[2021-12-30] MEDS: SODIUM CHLORIDE 0.9 % (FLUSH) 10 ML SYRINGE 5 ML IVF (09:14)
[2021-12-30] MEDS: BUSPIRONE 10 MG TABLET 15 MG PO (09:45)
[2021-12-30] MEDS: HYDROXYCHLOROQUINE 200 MG TABLET PO (09:47)
[2021-12-30] MEDS: METOPROLOL TARTRATE 50 MG TABLET PO (09:47)
[2021-12-30] MEDS: ASPIRIN EC 325 MG TABLET PO (09:48)
[2021-12-30] MEDS: CETIRIZINE HCL 10 MG TABLET PO (09:48)
[2021-12-30] MEDS: PREGABALIN 100 MG CAPSULE 200 MG PO (09:49)
[2021-12-30] MEDS: TAMSULOSIN HCL 0.4 MG CAPSULE PO (09:49)
[2021-12-30] MEDS: 0.9 % SODIUM CHLORIDE 250 ml IV (10:27)
[2021-12-30 11:00] VITALS: BP 139/76; PULSE 54; RESP 18; O2SAT 96
--- NOTE | 2021-12-30 14:35 | PC.NURSE ---
Pt pain controlled with oxycodone and Tylenol. She is up with SBA and walker. D/c instructions given by Farnaz Epstein RN. Pt verbalized understanding of instructions, D/c home with .
--- NOTE | 2021-12-30 17:04 | PM.DS1 ---
DS: Providers Provider Date of admission: 12/28/21 22:50 Primary care physician: Not a Local Provider Admitting Clinician: Marito Armas MD Consults: 12/28/21 23:35 Consult to Occupational Therapy [CONS] Routine Comment: Reason(s) for OT Consult:: Evaluate and Treat Any Restrictions?:: No Restrictions Consult to Physical Therapy [CONS] Routine Comment: Reason(s) for PT Consult:: Evaluate and Treat Any Restrictions?:: No Restrictions 12/29/21 01:02 Consult to Occupational Therapy [CONS] Routine Comment: Reason(s) for OT Consult:: Difficulty Managing ADLs Any Restrictions?:: No Restrictions Consult to Physical Therapy [CONS] Routine Comment: Reason(s) for PT Consult:: Evaluate and Treat Any Restrictions?:: No Restrictions Attending Physician on discharge: Swapna Crocker MD Date of Discharge: 12/30/21 DS: Summary Hospital Course Hospital Course: HOSPITALIST DISCHARGE SUMMARY ATTENDING PHYSICIAN: Swapna Crocker MD FINAL DIAGNOSIS: Hemoptysis Chronic aspiration pneumonia related to previous CVA Interstitial lung disease HOSPITAL FOLLOWUP ISSUES: 1. Pulmonary care - pulmonary team from [place], Dr. Brennan, should be reaching out to the patient on the 03 of January or later that week for outpatient follow-up possible bronchoscopy. REFERRALS WHILE ADMITTED: PT, OT REFERRALS AFTER DISCHARGE: Return to pulmonary medicine BRIEF HOSPITAL COURSE: This is a 66-year-old with known ILD and chronic aspiration pneumonia who presents with 5 days of hemoptysis and mild anemia. She has a complicated pulmonary history which includes severe pneumonia with empyema in April of 2021. This required a thoracotomy in transfer to [facility]. She also had RSV this winter. She is typically not on home O2. She is followed by pulmonary medicine. She presented after 5 days small volume hemoptysis. Usually in the morning. Not related to anything in her nasal cavity. After admission she was started on broad-spectrum VITAL SIGN, MEDICATION, LAB/MICRO, IMAGING SUMMARY (full details available in account tabs or by records request) Chest CT IMPRESSION: 1. No evidence of pulmonary embolism. 2. Diffuse reticulonodular opacities in right lung with pleural thickening and areas of masslike consolidation in the right upper lobe is improved compared to CT 06/08/2021. Findings may be due to infection although are indeterminate. 3. Nonspecific mild right paratracheal and right hilar lymphadenopathy. 4. Right middle lobe atelectasis. All labs drawn during admission were reviewed. DISCHARGE MEDICATIONS: See Reconciled list REVIEW OF SYSTEMS No new chest pain or dyspnea Pain controlled No voiding difficulties Tolerating diet challenge PHYSICAL EXAM: CONSTITUTIONAL: VITAL SIGNS: see record. HEENT: Normocephalic, atraumatic. PERRL, EOMI, conjunctivae pink, no scleral icterus. Ears and nose externally normal. Pharynx normal. NECK: No JVD. No carotid bruit, no thyromegaly, no adenopathy. CHEST: Clear to auscultation bilaterally. HEART: S1 and S2 normal. Edema 1+ ABDOMEN: Soft, nontender. Normal bowel sounds. MUSCULOSKELETAL: No gross joint deformity or swelling. NEURO: Cranial nerves intact. Grossly intact. No asymmetric findings. SKIN: No rashes, petechiae, concerning changes PSYCHIATRIC: Mood euthymic. DISPOSITION: Time spent on discharge 37 minutes. Status at Discharge Functional status at discharge: uses cane/walker Time Spent with Patient Time attestation: Total time spent providing and/or coordinating discharge services: Time spent: Greater than 30 minutes Exam Const: Vital Signs, click to edit/add: Vital Signs - 24 hr 12/29/21 19:00 12/29/21 23:00 12/30/21 00:30 Temperature 98.1 F 98.3 F Pulse Rate 57 L Pulse Rate [Left B rachial] 59 L 59 L Pulse Rate [Left R adial] 75 Respiratory Rate 18 16 16 Blood Pressure [Le ft Arm] 149/87 H 160/76 H Pulse Oximetry 93 96 12/30/21 00:47 12/30/21 05:07 12/30/21 07:00 Temperature 98.3 F 98.0 F 97.7 F Pulse Rate 73 Pulse Rate [Left B rachial] 55 L 65 Pulse Rate [Left R adial] Respiratory Rate 16 20 Blood Pressure [Le ft Arm] 163/96 H 223/127 H Pulse Oximetry 96 94 12/30/21 11:00 Temperature Pulse Rate Pulse Rate [Left B rachial] 54 L Pulse Rate [Left R adial] Respiratory Rate 18 Blood Pressure [Le ft Arm] 139/76 Pulse Oximetry 96 DS: Data Data Completed and Pending Labs on day of discharge: Labs from last 24 hours 12/30/21 12/29/2112/28/22 06:35 06:35 06:22 WBC 4.37 L RBC 3.69 L Hgb 10.1 L Hct 33.9 MCV 92 MCH 27 MCHC 30 L Plt Count 265 Retic Hgb Equivalent 24.1 L Sodium 140 Potassium 4.2 Chloride 105 Carbon Dioxide 33 H BUN 13 Creatinine 0.7 Estimated Creat Clear 51.14 Glucose 100 Calcium 9.0 Magnesium 1.7 Triglycerides 109 Cholesterol 162 LDL Cholesterol, Calc 81 HDL Cholesterol 59 Procalcitonin 0.21 Preliminary micro results at discharge 12/28/21 18:10 Blood Culture - Preliminary Blood NO GROWTH AFTER 24 HOURS 12/28/21 18:26 Blood Culture - Preliminary Blood NO GROWTH AFTER 24 HOURS Discharge Plan Discharge Disposition: Home, Self-Care Date of Admission: 12/28/21 22:50 Attending Provider on Discharge: Swapna Crocker Primary Care Provider: Provider,Not a Local Condition: Improved Anticipated Discharge Date/Time: 12/30/21 10:56 Discharge Medications: New amoxicillin-pot clavulanate [Augmentin] 500-125 mg tablet 1 tab PO BID Qty: 14 0RF Continued atorvastatin 40 mg tablet 40 mg PO DAILY 0RF Label Comments: TAKE 1 TABLET BY MOUTH EVERY DAY pilocarpine HCl 5 mg tablet 5 mg PO TID 0RF Label Comments: TAKE 1 TABLET BY MOUTH THREE TIMES A DAY tizanidine 4 mg tablet 4 - 8 mg PO Q8H PRN (Reason: muscle spasticity) 0RF Label Comments: Take 1-2 tablet by mouth every six to eight hours as needed for muscle spasms Anti-Fungal 2 % powder 1 applic TOPICAL BID 0RF Label Comments: APPLY TO AFFECTED AREAS 2 TIMES DAILY hydroxyzine HCl 50 mg tablet 50 - 100 mg PO Q6H PRN0RF Label Comments: TAKE 1-2 TABLETS (50-100 MG) BY MOUTH EVERY 6 HOURS IF NEEDED FOR ITCHING OR OTHER amlodipine 5 mg tablet 5 mg PO DAILY 0RF Label Comments: TAKE 1 TABLET BY MOUTH EVERY DAY tamsulosin 0.4 mg capsule 0.4 mg PO DAILY 0RF Label Comments: TAKE 1 CAPSULE BY MOUTH ONCE DAILY AFTER A MEAL. benzonatate 100 mg capsule 100 - 200 mg PO TID PRN0RF Label Comments: TAKE 1-2 CAPSULES (100-200 MG) BY MOUTH 3 TIMES DAILY IF NEEDED FOR COUGH. mirtazapine 30 mg tablet 30 mg PO HS 0RF Label Comments: TAKE 1 TABLET BY MOUTH AT BEDTIME. levothyroxine 150 mcg tablet 150 mcg PO DAILY 0RF Label Comments: TAKE 1 TABLET (150 MCG) BY MOUTH BEFORE BREAKFAST. losartan 25 mg tablet 25 mg PO DAILY 0RF Label Comments: TAKE 1 TABLET BY MOUTH EVERY DAY omeprazole 20 mg capsule,delayed release(DR/EC) 20 mg PO DAILY 0RF Label Comments: TAKE 1 CAPSULE (20 MG) BY MOUTH ONCE DAILY BEFORE A MEAL. furosemide 20 mg tablet 20 mg PO DAILY 0RF Label Comments: TAKE 1 TABLET (20 MG) BY MOUTH EVERY MORNING. IF NEEDED. MAY TAKE IF WEIGHT INCREASES BY 3# OR MORE hydroxychloroquine 200 mg tablet 200 mg PO BID 0RF Label Comments: TAKE 1 TABLET BY MOUTH TWICE A DAY albuterol sulfate 90 mcg/actuation HFA aerosol inhaler 1 - 2 puff INHALATION Q4H PRN0RF Label Comments: INHALE 1-2 PUFFS BY MOUTH EVERY 4 HOURS IF NEEDED. ketoconazole 2 % cream 1 applic TOPICAL BID 0RF Label Comments: APPLY TO AFFECTED AREA TWICE A DAY buspirone 15 mg tablet 15 mg PO BID 0RF Label Comments: TAKE 1 TABLET BY MOUTH TWICE A DAY duloxetine 60 mg capsule,delayed release(DR/EC) 120 mg PO DAILY 0RF Label Comments: TAKE 2 CAPSULES (120MG) BY MOUTH ONCE DAILY. pregabalin 300 mg capsule 300 mg PO BID 0RF Label Comments: TAKE 1 CAPSULE BY MOUTH TWICE A DAY oxycodone 10 mg tablet 10 mg PO Q4H PRN0RF Label Comments: TAKE 1 TABLET BY MOUTH EVERY FOUR HOURS NEEDED FOR PAIN MAXIMUM OF 6 TABLETS/DAY. oxycodone [OxyContin] 20 mg tablet,oral only,ext.rel.12 hr 20 mg PO TID 0RF Label Comments: TAKE 1 TABLET BY MOUTH THREE TIMES A DAY Discharge Orders: Discharge Order (Routine); Ordered 12/30/21 Ordered By: Swapna Crocker Patient Education: Aspiration Pneumonia (DC) Activity Restrictions/Additional Instructions: Dr. Brennan's pulmonary group will contact you for a f/u next week. We feel the coughing of blood is from aspiration pneumonia. The chronic aspiration is causing irritation and inflamation that you are coughing up. The aspirin therapy also didn't help. We ask that you hold your aspirin until seen by pulmonary medicine. Activity Level: Activity as Tolerated Discharge Diet: Regular Diet Detail: as you have chronic aspiration from your esophagus to your lungs, keep your chin down when swallowing and eat soft foods with thickened fluids. Follow Up Appointments: Provider,Not a Local [Primary Care Provider] - Forms: [employer] Info Instructions
--- NOTE | 2021-12-30 20:19 | PC.NURSE ---
Assisted w/discharge teachings, reviewed all paperwork and answered questions. 10mg oxycodone administered prior to D/C. Pt. left w/ and belongings @ [id number].
== END 2021-12-30 13:35 | disposition home or self-care (01) | DRG 137 ==
LOC: ED 22:11 → MEDSURG 22:52
PROVIDERS: Family Medicine; Admitting Provider Family Medicine; Emergency Provider Family Medicine; Visit Provider Family Medicine
DX: J69.0 Pneumonitis due to inhalation of food and vomit (principal); R04.2 Hemoptysis; J44.9 Chronic obstructive pulmonary disease, unspecified; I95.9 Hypotension, unspecified; I69.320 Aphasia following cerebral infarction; I69.354 Hemiplegia and hemiparesis following cerebral infarction affecting left non-dominant side; G89.29 Other chronic pain; K50.90 Crohn's disease, unspecified, without complications; F32.A Depression, unspecified; E78.5 Hyperlipidemia, unspecified; E03.9 Hypothyroidism, unspecified; E66.9 Obesity, unspecified; M35.00 Sjogren syndrome, unspecified; J84.9 Interstitial pulmonary disease, unspecified; R91.8 Other nonspecific abnormal finding of lung field; D64.9 Anemia, unspecified
CPT/HCPCS: 36415; 71045; 71260; 80048; 80061; 83540; 83550; 83735; 83880; 84145; 84484; 85025; 85027; 85045; 85610; 85730; 87040; 87502; 87635; 93005; 97116; 97161; 97165; 97530; 97535; 99285; 99291; A9270; J2543; J7030; J7050; Q9967

== ENCOUNTER 2022-08-19 20:04 | Inpatient (IN) | payer MEDICARE, SELFPAY ==
[2022-08-19 20:21] VITALS: BP 73/34; PULSE 91; RESP 18; TEMP 35; O2SAT 88
--- NOTE | 2022-08-19 20:26 | ED.GENADULT ---
HPI - General Adult General Time Seen by Provider: 20:26 Date Seen: 08/19/22 Chief complaint: Laceration/Wound Stated complaint: Cut Arm Time Seen by Provider: 08/19/22 20:26 Source: patient, family and RN notes reviewed Mode of arrival: ambulatory Limitations: no limitations History of Present Illness HPI narrative: 67-year-old female who presents today initially for a cut on her left arm. She had a syncopal episode earlier and fell, sustaining a laceration of the medial proximal upper arm. She notes that she had some vomiting and diarrhea 2 days ago and has felt poorly since then with body aches, fatigue, lightheadedness when she stands up. She denies chest pain, cough, does note some generalized abdominal pain. Denies black or bloody stools. Denies urinary symptoms. Reports fever 101.5 two days ago but nothing since. Related Data Home Medications Medication Instructions Recorded Confirmed albuterol sulfate 90 mcg/actuation 1 - 2 puff inhalation Q4H PRN 12/28/21 12/29/21 aerosol inhaler amlodipine 5 mg tablet 5 mg PO DAILY 12/28/21 12/29/21 atorvastatin 40 mg tablet 40 mg PO DAILY 12/28/21 12/29/21 benzonatate 100 mg capsule 100 - 200 mg PO TID PRN 12/28/21 12/29/21 buspirone 15 mg tablet 15 mg PO BID 12/28/21 12/29/21 duloxetine 60 mg capsule,delayed 120 mg PO DAILY 12/28/21 12/29/21 release furosemide 20 mg tablet 20 mg PO DAILY 12/28/21 12/29/21 hydroxychloroquine 200 mg tablet 200 mg PO BID 12/28/21 12/29/21 hydroxyzine HCl 50 mg tablet 50 - 100 mg PO Q6H PRN 12/28/21 12/29/21 ketoconazole 2 % topical cream 1 applic topical BID 12/28/21 12/29/21 levothyroxine 150 mcg tablet 150 mcg PO DAILY 12/28/21 12/29/21 losartan 25 mg tablet 25 mg PO DAILY 12/28/21 12/29/21 miconazole nitrate 2 % topical 1 applic topical BID 12/28/21 12/29/21 powder (Anti-Fungal) mirtazapine 30 mg tablet 30 mg PO HS 12/28/21 12/29/21 omeprazole 20 mg capsule,delayed 20 mg PO DAILY 12/28/21 12/29/21 release oxycodone 10 mg tablet 10 mg PO Q4H PRN 12/28/21 12/29/21 oxycodone 20 mg tablet,crush 20 mg PO TID 12/28/21 12/29/21 resistant,extended release 12 hr (OxyContin) pilocarpine HCl 5 mg tablet 5 mg PO TID 12/28/21 12/29/21 pregabalin 300 mg capsule 300 mg PO BID 12/28/21 12/29/21 tamsulosin 0.4 mg capsule 0.4 mg PO DAILY 12/28/21 12/29/21 tizanidine 4 mg tablet 4 - 8 mg PO Q8H PRN muscle 12/28/21 12/29/21 spasticity Previous Rx's Medication Instructions Recorded amoxicillin 500 mg-potassium 1 tab PO BID #14 tabs 12/30/21 clavulanate 125 mg tablet (Augmentin) Allergies Allergy/AdvReac Type Severity Reaction Status Date / Time Sulfa (Sulfonamide Allergy Intermediate Rash Verified 12/28/21 17:24 Antibiotics) preservative Allergy Uncoded 12/28/21 17:24 Review of Systems Status of ROS: Reports: 10 or more systems reviewed and unremarkable except as noted in History and below [facility] Medical History (Updated 08/19/22 @ 23:37 by Chandrika Putnam MD) Anemia Anxiety with depression Aphasia as late effect of cerebrovascular accident Aspiration pneumonia Carpal tunnel syndrome of right wrist Cervicalgia Chronic pain Colonic stricture Consolidation of right upper lobe of lung COPD (chronic obstructive pulmonary disease) Crohn disease CVA (cerebral vascular accident) De Quervain's syndrome (tenosynovitis) Degeneration of lumbar or lumbosacral intervertebral disc Depression Displacement of lumbar intervertebral disc without myelopathy Elevated ferritin Empyema lung Equinus contracture of left ankle Facial basal cell cancer (~2005) Fatigue Foot drop Hemoptysis Hiatal hernia Hyperlipemia Hypotension Hypothyroid Impairment of balance Interstitial lung disease Migraine Myocardial infarction Obesity Picking own skin Primary osteoarthritis of right knee Pulmonary nodule Sjogrens syndrome Sleep stage dysfunction Synovial cyst of popliteal space Trigger finger of right hand Surgical History (Updated 08/19/22 @ 23:36 by Chandrika Putnam MD) H/O colonoscopy H/O foot surgery (~1995) H/O lumbar discectomy (~2009) H/O meniscectomy of right knee (~2008) H/O nephrolithotomy with removal of calculi (~1989) H/O vaginal hysterectomy History of facial surgery History of total right knee replacement (TKR) (10/13/15) S/P breast lumpectomy (~1987) S/P hardware removal (~2012) S/P small bowel resection (~2012) Status post cholecystectomy (~1996) Family History (Updated 12/28/21 @ 23:45 by Marito Armas MD) Other Alcohol use disorder Breast cancer High blood pressure Pancreatic cancer Social History Smoking Status: Unknown if ever smoked How often do you have a drink containing alcohol: never AUDIT-C Alcohol total score: 0 Non-prescribed substance use: denies use Exam Narrative: Exam Narrative: General: Well-developed and well-nourished, no acute distress, ill-appearing Head: Atraumatic and normocephalic Eyes: Pupils are equal reactive, extraocular motions intact, conjunctiva pale ENT: External nose and ears are normal, posterior pharynx without erythema or exudate Neck: No midline cervical tenderness, full spontaneous range of motion the neck, trachea midline, no adenopathy Heart: Regular rate and rhythm no murmurs or thrills Lungs: Clear to auscultation bilaterally without wheezes or crackles Abdomen: Soft, nontender, nondistended with active bowel sounds Musculoskeletal: Mild diffuse tenderness Neurologic: Awake, alert, and oriented x3, no gross focal neurologic deficits, cranial nerves intact as tested Psych: Mood and affect are appropriate Skin: Pale. 8 cm straight full-thickness laceration of the left upper arm with no active bleeding Const: Vital Signs, click to edit/add: Vital Signs - 24 hr 08/19/22 20:21 08/19/22 23:08 08/19/22 22:29 Temperature 95.0 F L Pulse Rate [Left P ulse Oximeter] 91 Respiratory Rate 18 Blood Pressure [Ri ght Upper Arm] 73/34 L 88/45 L 92/81 Pulse Oximetry 88 Oxygen Delivery Me thod Room Air 08/19/22 23:33 Temperature Pulse Rate [Left P ulse Oximeter] Respiratory Rate Blood Pressure [Ri ght Upper Arm] 92/51 L Pulse Oximetry Oxygen Delivery Me thod Course Course Hospital Course: Patient seen and examined, prior records reviewed. Patient presents today for syncopal episode tonight with an arm laceration. However, she is noted to be quite hypotensive on initial exam, appears pale and ill. She notes some syncopal episodes in the last couple of days, had some vomiting and diarrhea 2 days ago but nothing since. Denies black or bloody stools but quite pale, concern for GI bleed, sepsis also possibility. Labs and IV fluids are initiated. Consider also acute blood loss but the laceration to the upper arm is not deep enough to cause vascular compromise and there is no active pulsatile bleeding at this time. Further interview with patient's spouse, he reports that she has had labile blood pressures and will sometimes have significant hypotension usually accompanied with kidney injury, improved after fluids. Repeat few of prior inpatient records from November 2021 shows the patient has a history of recurrent aspiration pneumonia, had an empyema drained at [facility] in 2020. Reevaluation(s) Reevaluation #1: Labs independently interpreted by me demonstrate normal white blood cell count normal hemoglobin, lactate is elevated at 3.8. No other indications of sepsis at this time as patient is afebrile, no white blood cell count. Additional IV fluids are ordered and her repeat lactate will be done. Time: 21:09 Reevaluation #2: Potassium low at 2.9, this replaced intravenously magnesium level is ordered. Creatinine and elevated at 2.4 with elevated BUN, likely related to dehydration and IV fluids have been initiated. Hepatic function panel is reassuring. Time: 21:41 Reevaluation #3: CT scan independently interpreted by me demonstrates right upper lobe and right lower lobe consolidations as well as left lower lobe consolidation. No acute findings in the abdomen. Given abnormal CT scan findings, hypotension, elevated lactate, patient will be admitted on broad-spectrum antibiotics. Blood pressures are improved after 1 L fluids. Time: 22:05 Additional Reevaluation(s): 10:20 PM care discussed with Dr. Putnam, hospitalist for admission. Request procalcitonin which is ordered. 11:44 PM repeat lactate 1.1, patient remains hypotensive but is up and walking around, mentating appropriately. Vital Signs Vital signs: Initial Vital Signs Temperature 95.0 F L 08/19/22 20:21 Temperature Source Temporal Artery Scan 08/19/22 20:21 Pulse Rate 91 08/19/22 20:21 Pulse Rhythm 08/19/22 20:21 Respiratory Rate 18 08/19/22 20:21 Blood Pressure 73/34 L 08/19/22 20:21 Blood Pressure Mean 47 08/19/22 20:21 Blood Pressure Position Supine 08/19/22 20:21 Pulse Oximetry 88 08/19/22 20:21 Oxygen Delivery Method 08/19/22 20:21 Vital Signs Temperature 95.0 F L 08/19/22 20:21 Pulse Rate 91 08/19/22 20:21 Respiratory Rate 18 08/19/22 20:21 Blood Pressure 73/34 L 08/19/22 20:21 Pulse Oximetry 88 08/19/22 20:21 Oxygen Delivery Method 08/19/22 20:21 Temperature 95.0 F L 08/19/22 20:21 Pulse Rate 91 08/19/22 20:21 Respiratory Rate 18 08/19/22 20:21 Blood Pressure 92/51 L 08/19/22 23:33 Pulse Oximetry 88 08/19/22 20:21 Oxygen Delivery Method 08/19/22 20:21 Medical Decision Making Medical Records Medical records reviewed: Yes I reviewed the patient's medical records Lab Data Lab results reviewed: Yes I reviewed the patient's lab results Labs: Lab Results 08/19/22 08/19/22 08/19/22 Range/Units 20:30 20:30 20:30 WBC 8.44 (4.50-11.00) K/uL RBC 4.47 (4.00-5.20) m/uL Hgb 12.1 (12.0-16.0) gm/dL Hct 39.4 (33.0-51.0) % MCV 88 (80-100) fL MCH 27 (26-34) pg MCHC 31 L (32-36) gm/dL RDW Coeff of Kaley 16.7 H (11.5-15.5) % Plt Count 301 (140-440) K/uL Neut % (Auto) 78.6 H (42.0-72.0) % Lymph % (Auto) 10.4 L (20-44) % [place] % (Auto) 9.0 (0.0-11.0) % Eos % (Auto) 1.7 (0.0-7.0) % Baso % (Auto) 0.2 (0.0-3.0) % Neut # (Auto) 6.60 (1.7-7.0) K/uL Lymph # (Auto) 0.90 (0.90-2.90) K/uL [place] # (Auto) 0.80 (0.00-0.90) K/UL Eos # (Auto) 0.14 (0.00-0.50) K/uL Baso # (Auto) 0.02 (0.00-0.30) K/uL INR (0.91-1.10) Sodium 139 (135-149) mmol/L Potassium 2.9 L* (3.6-5.1) mmol/L Chloride 103 (96-114) mmol/L Carbon Dioxide 24 (20-32) mmol/L BUN 40 H (7-30) mg/dL Creatinine 2.4 H (0.5-1.5) mg/dL Estimated GFR 22 ml/min Glucose 124 H (60-115) mg/dL Lactate (0.5-1.9) mmol/L Calcium 9.0 (8.4-10.6) mg/dL Magnesium (1.5-2.6) mg/dL Total Bilirubin (0.1-1.5) mg/dL Direct Bilirubin (0.0-0.5) mg/dL AST (12-35) U/L ALT (4-35) U/L Alkaline Phosphatase (40-150) U/L Total Protein (6.0-8.3) g/dL Albumin (3.3-5.0) g/dL Lipase (23-300) U/L SARS-CoV-2 (PCR) (Negative) Influenza Type A (PCR) (Negative) Influenza Type B (PCR) (Negative) RSV (PCR) (Negative) Blood Type O Negative Antibody Screen NEGATIVE 08/19/22 08/19/22 08/19/22 Range/Units 20:30 20:30 20:30 WBC (4.50-11.00) K/uL RBC (4.00-5.20) m/uL Hgb (12.0-16.0) gm/dL Hct (33.0-51.0) % MCV (80-100) fL MCH (26-34) pg MCHC (32-36) gm/dL RDW Coeff of Kaley (11.5-15.5) % Plt Count (140-440) K/uL Neut % (Auto) (42.0-72.0) % Lymph % (Auto) (20-44) % [place] % (Auto) (0.0-11.0) % Eos % (Auto) (0.0-7.0) % Baso % (Auto) (0.0-3.0) % Neut # (Auto) (1.7-7.0) K/uL Lymph # (Auto) (0.90-2.90) K/uL [place] # (Auto) (0.00-0.90) K/UL Eos # (Auto) (0.00-0.50) K/uL Baso # (Auto) (0.00-0.30) K/uL INR 0.96 (0.91-1.10) Sodium (135-149) mmol/L Potassium (3.6-5.1) mmol/L Chloride (96-114) mmol/L Carbon Dioxide (20-32) mmol/L BUN (7-30) mg/dL Creatinine (0.5-1.5) mg/dL Estimated GFR ml/min Glucose (60-115) mg/dL Lactate 3.8 H (0.5-1.9) mmol/L Calcium (8.4-10.6) mg/dL Magnesium 1.7 (1.5-2.6) mg/dL Total Bilirubin 0.6 (0.1-1.5) mg/dL Direct Bilirubin 0.4 (0.0-0.5) mg/dL AST 17 (12-35) U/L ALT 15 (4-35) U/L Alkaline Phosphatase 101 (40-150) U/L Total Protein 7.0 (6.0-8.3) g/dL Albumin 3.9 (3.3-5.0) g/dL Lipase 100 (23-300) U/L SARS-CoV-2 (PCR) (Negative) Influenza Type A (PCR) (Negative) Influenza Type B (PCR) (Negative) RSV (PCR) (Negative) Blood Type Antibody Screen 08/19/22 08/19/22 Range/Units 21:07 23:11 WBC (4.50-11.00) K/uL RBC (4.00-5.20) m/uL Hgb (12.0-16.0) gm/dL Hct (33.0-51.0) % MCV (80-100) fL MCH (26-34) pg MCHC (32-36) gm/dL RDW Coeff of Kaley (11.5-15.5) % Plt Count (140-440) K/uL Neut % (Auto) (42.0-72.0) % Lymph % (Auto) (20-44) % [place] % (Auto) (0.0-11.0) % Eos % (Auto) (0.0-7.0) % Baso % (Auto) (0.0-3.0) % Neut # (Auto) (1.7-7.0) K/uL Lymph # (Auto) (0.90-2.90) K/uL [place] # (Auto) (0.00-0.90) K/UL Eos # (Auto) (0.00-0.50) K/uL Baso # (Auto) (0.00-0.30) K/uL INR (0.91-1.10) Sodium (135-149) mmol/L Potassium (3.6-5.1) mmol/L Chloride (96-114) mmol/L Carbon Dioxide (20-32) mmol/L BUN (7-30) mg/dL Creatinine (0.5-1.5) mg/dL Estimated GFR ml/min Glucose (60-115) mg/dL Lactate 1.1 (0.5-1.9) mmol/L Calcium (8.4-10.6) mg/dL Magnesium (1.5-2.6) mg/dL Total Bilirubin (0.1-1.5) mg/dL Direct Bilirubin (0.0-0.5) mg/dL AST (12-35) U/L ALT (4-35) U/L Alkaline Phosphatase (40-150) U/L Total Protein (6.0-8.3) g/dL Albumin (3.3-5.0) g/dL Lipase (23-300) U/L SARS-CoV-2 (PCR) Negative SARS-CoV-2 (Negative) Influenza Type A (PCR) Negative PCR FLU A (Negative) Influenza Type B (PCR) Negative PCR FLU B (Negative) RSV (PCR) Negative PCR RSV (Negative) Blood Type Antibody Screen Discharge Plan Discharge Clinical Impression: Acute kidney injury, Laceration of left upper arm, Shock, Acute hypokalemia, Recurrent aspiration pneumonia Prescriptions: No Action atorvastatin 40 mg tablet 40 mg PO DAILY Label Comments: TAKE 1 TABLET BY MOUTH EVERY DAY pilocarpine HCl 5 mg tablet 5 mg PO TID Label Comments: TAKE 1 TABLET BY MOUTH THREE TIMES A DAY tizanidine 4 mg tablet 4 - 8 mg PO Q8H PRN (Reason: muscle spasticity) Label Comments: Take 1-2 tablet by mouth every six to eight hours as needed for muscle spasms Anti-Fungal 2 % powder 1 applic TOPICAL BID Label Comments: APPLY TO AFFECTED AREAS 2 TIMES DAILY hydroxyzine HCl 50 mg tablet 50 - 100 mg PO Q6H PRN Label Comments: TAKE 1-2 TABLETS (50-100 MG) BY MOUTH EVERY 6 HOURS IF NEEDED FOR ITCHING OR OTHER amlodipine 5 mg tablet 5 mg PO DAILY Label Comments: TAKE 1 TABLET BY MOUTH EVERY DAY tamsulosin 0.4 mg capsule 0.4 mg PO DAILY Label Comments: TAKE 1 CAPSULE BY MOUTH ONCE DAILY AFTER A MEAL. benzonatate 100 mg capsule 100 - 200 mg PO TID PRN Label Comments: TAKE 1-2 CAPSULES (100-200 MG) BY MOUTH 3 TIMES DAILY IF NEEDED FOR COUGH. mirtazapine 30 mg tablet 30 mg PO HS Label Comments: TAKE 1 TABLET BY MOUTH AT BEDTIME. levothyroxine 150 mcg tablet 150 mcg PO DAILY Label Comments: TAKE 1 TABLET (150 MCG) BY MOUTH BEFORE BREAKFAST. losartan 25 mg tablet 25 mg PO DAILY Label Comments: TAKE 1 TABLET BY MOUTH EVERY DAY omeprazole 20 mg capsule,delayed release(DR/EC) 20 mg PO DAILY Label Comments: TAKE 1 CAPSULE (20 MG) BY MOUTH ONCE DAILY BEFORE A MEAL. furosemide 20 mg tablet 20 mg PO DAILY Label Comments: TAKE 1 TABLET (20 MG) BY MOUTH EVERY MORNING. IF NEEDED. MAY TAKE IF WEIGHT INCREASES BY 3# OR MORE hydroxychloroquine 200 mg tablet 200 mg PO BID Label Comments: TAKE 1 TABLET BY MOUTH TWICE A DAY albuterol sulfate 90 mcg/actuation HFA aerosol inhaler 1 - 2 puff INHALATION Q4H PRN Label Comments: INHALE 1-2 PUFFS BY MOUTH EVERY 4 HOURS IF NEEDED. ketoconazole 2 % cream 1 applic TOPICAL BID Label Comments: APPLY TO AFFECTED AREA TWICE A DAY buspirone 15 mg tablet 15 mg PO BID Label Comments: TAKE 1 TABLET BY MOUTH TWICE A DAY duloxetine 60 mg capsule,delayed release(DR/EC) 120 mg PO DAILY Label Comments: TAKE 2 CAPSULES (120MG) BY MOUTH ONCE DAILY. pregabalin 300 mg capsule 300 mg PO BID Label Comments: TAKE 1 CAPSULE BY MOUTH TWICE A DAY oxycodone 10 mg tablet 10 mg PO Q4H PRN Label Comments: TAKE 1 TABLET BY MOUTH EVERY FOUR HOURS NEEDED FOR PAIN MAXIMUM OF 6 TABLETS/DAY. oxycodone [OxyContin] 20 mg tablet,oral only,ext.rel.12 hr 20 mg PO TID Label Comments: TAKE 1 TABLET BY MOUTH THREE TIMES A DAY amoxicillin-pot clavulanate [Augmentin] 500-125 mg tablet 1 tab PO BID Qty: 14 0RF Follow Up/Referrals: Provider,Not a Local [Primary Care Provider] - Procedures Laceration Laceration 1: Pre procedure diagnosis: Left upper arm laceration, full-thickness, 8 cm Post procedure diagnosis: Same Written consent by: patient Site marking: not applicable Verification/time out: correct patient and correct procedure Name of person performing procedure: Lul Cox Site: upper extremity Side (If applicable): left Size (cm): 8 Description: linear Depth: simple, single layer Local Anesthetic: lidocaine 1% and with epi Amount of anesthesia used (mL): 3 Pre-repair: wound explored Skin layer closed with: nylon Size (cm): 4-0 Technique: running Conclusion: patient tolerated procedure
--- NOTE | 2022-08-19 20:34 | CRLHL7_ITS ---
For Patients: As a result of the Century Cures Act, medical imaging exams and procedure reports are released immediately into your electronic medical record. You may view this report before your referring provider. If you have questions, please contact your health care provider. INDICATION: Hypotension, abdominal pain, recent falls.. TECHNIQUE: CT chest, abdomen and pelvis acquired without contrast. COMPARISON: None. FINDINGS: CHEST: Cardiovascular structures: Heart size is normal. Thoracic aorta is normal in caliber. Main pulmonary artery is enlarged measuring up to 34 millimeters in diameter, which can be seen in setting of pulmonary hypertension. Mediastinum and jose luis: No mass or adenopathy. Hiatal hernia. Fluid-filled esophagus, aspiration risk. Lungs and pleura: Nodular ground-glass opacities are identified in the left lower lobe and lingula. Atelectasis versus scarring in the right lower lobe and right middle lobe. Punctate centrilobular nodular opacities in the right lower lobe may reflect infection, inflammation. Chest wall and axilla: No mass or adenopathy. Bones: No suspicious bone lesions. Unremarkable for age. ABDOMEN AND PELVIS: Liver: Unremarkable. Gallbladder and bile ducts: Absent. No significant intra or extrahepatic biliary ductal dilatation. Pancreas: Unremarkable. Spleen: Unremarkable. Adrenal glands: Unremarkable. Kidneys: Unremarkable. GI tract: Moderate hiatal hernia. Appendix is not well visualized. No bowel obstruction. Vascular structures: Abdominal aorta is normal in caliber. Lymph nodes: Unremarkable. Miscellaneous: Unremarkable. No free air or significant free fluid. Pelvic Organs: Unremarkable. Bones: Lumbar fusion changes. Multilevel degenerative changes in the spine. IMPRESSION: Nodular ground-glass opacities in the left lower lobe and lingula, may be related to aspiration/infection. In addition, there are punctate centrilobular nodular opacities in the right lower lobe which may reflect aspiration, bronchiolitis. Moderate hiatal hernia. Fluid-filled esophagus, aspiration risk. No acute intra-abdominal process identified. Please note that all CT scans at this facility use dose modulation, iterative reconstruction, and/or weight-based dosing when appropriate to reduce radiation dose to as low as reasonably achievable. Dictated by Vannesa Barone MD @ 08/19/2022 10:50:57 PM (Electronically Signed)
[2022-08-19 20:43] LABS: Lactate* 3.8 mmol/L (0.5-1.9)
[2022-08-19 20:46] LABS: Basophils Absolute Auto 0.02 K/uL (0.00-0.30); Basophils Percent Auto 0.2 % (0.0-3.0); Eosinophils Absolute Auto 0.14 K/uL (0.00-0.50); Eosinophils Percent Auto 1.7 % (0.0-7.0); Hematocrit 39.4 % (33.0-51.0); Hemoglobin* 12.1 gm/dL (12.0-16.0); Immature Granulocytes Abs Auto 0.01 K/uL (0.00-0.30); Immature Granulocytes Pct Auto 0.1 %; Lymphocytes Percent Auto 10.4 % (20-44); Mean Corpuscular HGB Conc 31 gm/dL (32-36); Mean Corpuscular Hemoglobin 27 pg (26-34); Mean Corpuscular Volume 88 fL (80-100); Neutrophils Percent Auto 78.6 % (42.0-72.0); Platelet Count* 301 K/uL (140-440); RDW Coefficient of Variation % 16.7 % (11.5-15.5); Red Blood Count 4.47 m/uL (4.00-5.20); White Blood Count* 8.44 K/uL (4.50-11.00)
[2022-08-19 20:47] LABS: Slide Review Reflex No
[2022-08-19 21:06] LABS: INR 0.96 (0.91-1.10); Prothrombin Time 13.3 Seconds
[2022-08-19 21:08] LABS: Albumin* 3.9 g/dL (3.3-5.0)
[2022-08-19 21:09] LABS: Chloride* 103 mmol/L (96-114); Sodium* 139 mmol/L (135-149)
[2022-08-19] MEDS: 0.9 % SODIUM CHLORIDE 1000 ml 1,000 ML IV ×2 (21:10→22:22)
[2022-08-19 21:11] LABS: Aspartate Amino Transferase* 17 U/L (12-35); Bilirubin Direct* 0.4 mg/dL (0.0-0.5); Bilirubin Total* 0.6 mg/dL (0.1-1.5)
[2022-08-19 21:12] LABS: Alanine Aminotransferase* 15 U/L (4-35); Alkaline Phosphatase* 101 U/L (40-150); Carbon Dioxide* 24 mmol/L (20-32); Creatinine* 2.4 mg/dL (0.5-1.5); Estimated Glomerular Filt Rate 22 ml/min; Lipase* 100 U/L (23-300)
[2022-08-19 21:13] LABS: Blood Urea Nitrogen* 40 mg/dL (7-30); Glucose* 124 mg/dL (60-115)
[2022-08-19 21:26] LABS: Potassium* 2.9 mmol/L (3.6-5.1)
[2022-08-19] MEDS: ONDANSETRON 2 MG/ML inj 4 MG IVP (21:26)
[2022-08-19] MEDS: HYDROmorphone 0.5 mg/0.5 ml inj IVP (21:26)
[2022-08-19 21:50] LABS: PCR FLU A Negative PCR FLU A (Negative); PCR FLU B Negative PCR FLU B (Negative); PCR RSV Negative PCR RSV (Negative)
[2022-08-19 21:53] LABS: SARS PCR* Negative SARS-CoV-2 (Negative)
[2022-08-19 21:54] LABS: Magnesium* 1.7 mg/dL (1.5-2.6)
[2022-08-19] MEDS: POTASSIUM CHLORIDE 10 MEQ/100 ML PIGGYBACK 100 MEQ IVPB (22:22)
[2022-08-19 22:29] VITALS: BP 92/81
[2022-08-19] MEDS: PIPERACILLIN/TAZOBACTAM 3.375 GM in 0.9 % SODIUM CHLORIDE Mini-bag 100 ML IVPB (23:04)
[2022-08-19 23:08] VITALS: BP 88/45
[2022-08-19 23:28] LABS: Lactate* 1.1 mmol/L (0.5-1.9)
[2022-08-19 23:33] VITALS: BP 92/51
--- NOTE | 2022-08-19 23:42 | ED.NURSE ---
Report was given to CCU nurse and pt transported by steel pan form placing supervisor with all her belongings at this time.
--- NOTE | 2022-08-19 23:48 | P.IMHP_ITS ---
Hospitalist- H&P: HPI History of Present Illness Time Seen by Provider: 23:48 Date Seen: 08/19/22 Chief complaint: Cut Arm Narrative: Cyndi Mcnally is a 67 year old female with a very complicated past medical history who presented through the emergency department after a fall that resulted in a laceration to her left upper arm. She was profoundly hypotensive for which she was started on a sepsis protocol in the emergency department. She was given 2 L of IV fluids there and her blood pressures have normalized. She tells me that she started feeling sick and dizzy a few days ago. She felt like she had the flu. She had nausea and also an emesis on and has not been able to eat or drink much since that time. She denies fever. She complains of abdominal pain especially in the left abdomen. Today she was walking around in her bedroom when she suddenly felt dizzy and grabbed onto a dresser with her left hand when she blacked out and woke up on the floor with a laceration to her left upper inner arm. This was sutured in the emergency department. When she was brought into the emergency department, she recalls feeling nauseous, painful, cold and like she could not breathe. She recalls that her blood pressure was very low at that time. According to the ER record, her blood pressure was 73/34. She complains that she is tired and having some trouble talking. She does have a history of aphasia after a stroke many years ago. She has not had any other focal numbness weakness or tingling recently. She is on many sedating medications including very high dose opioids, both OxyContin and oxycodone. She gives a variable history about how much she is taking. She says she takes 6 tablets of 10 mg of oxycodone every day, but notes that she takes it every 4 hours while she is awake does not wake up in the middle of the night to take it. She does not double up on any tablets. When I asked if maybe she takes it more often than 4 hours, she said no. She does get a bit confused at times giving history. Her left from the emergency department and is not here to give history. I noted that the multiple sedating medications that she is on likely contributed to her fall today and her overall tiredness. I also noted that there was a note from an annual visit at [facility] that referenced a neurology visit with Dr. Montgomery who had recommended that she taper down on the sedating medications to improve her balance. At this point she became defensive and said that she already had cut down on her OxyContin from 30mg 3 times a day to 20 mg 3 times a day. She said she was not ready to cut down on anything and did not think it was causing her any problems. Review of Systems Status of ROS: Reports: 10 or more systems reviewed and unremarkable except as noted in History and below [facility] Medical History (Updated 08/20/22 @ 01:06 by Chandrika Putnam MD) Anemia Anxiety with depression Aphasia as late effect of cerebrovascular accident Aspiration pneumonia Carpal tunnel syndrome of right wrist Cervicalgia Chronic pain Colonic stricture Consolidation of right upper lobe of lung COPD (chronic obstructive pulmonary disease) Crohn disease CVA (cerebral vascular accident) De Quervain's syndrome (tenosynovitis) Degeneration of lumbar or lumbosacral intervertebral disc Depression Displacement of lumbar intervertebral disc without myelopathy Elevated ferritin Empyema lung Equinus contracture of left ankle Facial basal cell cancer (~2005) Fatigue Foot drop H/O echocardiogram Hemoptysis Hiatal hernia Hyperlipemia Hypotension Hypothyroid Impairment of balance Interstitial lung disease Migraine Myocardial infarction Obesity Picking own skin Primary osteoarthritis of right knee Pulmonary nodule Sjogrens syndrome Sleep stage dysfunction Synovial cyst of popliteal space Trigger finger of right hand Surgical History (Updated 08/19/22 @ 23:36 by Chandrika Putnam MD) H/O colonoscopy H/O foot surgery (~1995) H/O lumbar discectomy (~2009) H/O meniscectomy of right knee (~2008) H/O nephrolithotomy with removal of calculi (~1989) H/O vaginal hysterectomy History of facial surgery History of total right knee replacement (TKR) (10/13/15) S/P breast lumpectomy (~1987) S/P hardware removal (~2012) S/P small bowel resection (~2012) Status post cholecystectomy (~1996) Family History Other Alcohol use disorder Breast cancer High blood pressure Pancreatic cancer Social History (Updated 08/20/22 @ 00:47 by Chandrika Putnam MD) Narrative: Full code. Lives with . Denies tobacco use, quit 5 years ago, smoked a quarter of a pack for about 20 years off and on. Denies alcohol use. Denies recreational drug use. Smoking Status: Unknown if ever smoked How often do you have a drink containing alcohol: never AUDIT-C Alcohol total score: 0 Non-prescribed substance use: denies use Meds Home Medications and Allergies Home Medications Medication Instructions Recorded Confirmed Type albuterol sulfate 90 mcg/actuation 1 - 2 puff inhalation Q4H PRN 12/28/21 12/29/21 History aerosol inhaler amlodipine 5 mg tablet 5 mg PO DAILY 12/28/21 12/29/21 History atorvastatin 40 mg tablet 40 mg PO DAILY 12/28/21 12/29/21 History benzonatate 100 mg capsule 100 - 200 mg PO TID PRN 12/28/21 12/29/21 History buspirone 15 mg tablet 15 mg PO BID 12/28/21 12/29/21 History duloxetine 60 mg capsule,delayed 120 mg PO DAILY 12/28/21 12/29/21 History release furosemide 20 mg tablet 20 mg PO DAILY 12/28/21 12/29/21 History hydroxychloroquine 200 mg tablet 200 mg PO BID 12/28/21 12/29/21 History hydroxyzine HCl 50 mg tablet 50 - 100 mg PO Q6H PRN 12/28/21 12/29/21 History ketoconazole 2 % topical cream 1 applic topical BID 12/28/21 12/29/21 History levothyroxine 150 mcg tablet 150 mcg PO DAILY 12/28/21 12/29/21 History losartan 25 mg tablet 25 mg PO DAILY 12/28/21 12/29/21 History miconazole nitrate 2 % topical 1 applic topical BID 12/28/21 12/29/21 History powder (Anti-Fungal) mirtazapine 30 mg tablet 30 mg PO HS 12/28/21 12/29/21 History omeprazole 20 mg capsule,delayed 20 mg PO DAILY 12/28/21 12/29/21 History release oxycodone 10 mg tablet 10 mg PO Q4H PRN 12/28/21 12/29/21 History oxycodone 20 mg tablet,crush 20 mg PO TID 12/28/21 12/29/21 History resistant,extended release 12 hr (OxyContin) pilocarpine HCl 5 mg tablet 5 mg PO TID 12/28/21 12/29/21 History pregabalin 300 mg capsule 300 mg PO BID 12/28/21 12/29/21 History tamsulosin 0.4 mg capsule 0.4 mg PO DAILY 12/28/21 12/29/21 History tizanidine 4 mg tablet 4 - 8 mg PO Q8H PRN muscle 12/28/21 12/29/21 History spasticity aspirin 325 mg capsule 325 mg PO DAILY 08/20/22 08/20/22 History Home Medication Comments: Also takes an aspirin 325 mg daily Allergies Allergy/AdvReac Type Severity Reaction Status Date / Time Sulfa (Sulfonamide Allergy Intermediate Rash Verified 12/28/21 17:24 Antibiotics) preservative Allergy Uncoded 12/28/21 17:24 Exam Narrative: Exam Narrative: General: No acute distress. Sleepy, but able to remain awake for my interview. Mild aphasia with some slurring of her words or having difficulty saying a word at times. Oriented x3. HEENT: Normocephalic atraumatic, pupils equally round and reactive to light and accommodation. Oropharynx clear. Mucous membranes are dry. No cervical lymphadenopathy, thyromegaly or carotid bruits. No JVD. Cardiovascular: Regular rate and rhythm. Grade 3/6 systolic murmur loudest at the left upper sternal border. Chest: No increased work of breathing. Clear to auscultation bilaterally. No crackles or wheezes. Abdomen: Bowel sounds present. Soft, nondistended, nontender. No hepatosplenomegaly or masses. Extremities: Trace ankle edema, no cyanosis or clubbing. Skin: Multiple picking wounds on her arms and legs. Punctate ulcer with large callus around it the base of the his left great toe stub, left great toe previously surgically removed. Right great toe has multiple small ulcerations on the plantar surface, no induration, purulence or erythema. No jaundice, no pallor. Neuro: Mild aphasia consistent with what has been previously documented after stroke. No other focal deficits. Romberg is negative. Cranial nerves 2-12 are intact. Extraocular movements are full. No nystagmus. No facial asymmetry. Tongue is midline. Peripheral vision and vision are grossly intact. Strength is 5/5 in all 4 extremities. Light touch sensation is intact in face body and extremities. Const: Vital Signs, click to edit/add: Vital Signs - 24 hr 08/19/22 20:21 08/19/22 23:08 08/19/22 22:29 Temperature 95.0 F L Pulse Rate [Left P ulse Oximeter] 91 Respiratory Rate 18 Blood Pressure [Ri ght Upper Arm] 73/34 L 88/45 L 92/81 Pulse Oximetry 88 Oxygen Delivery Me thod Room Air 08/19/22 23:33 Temperature Pulse Rate [Left P ulse Oximeter] Respiratory Rate Blood Pressure [Ri ght Upper Arm] 92/51 L Pulse Oximetry Oxygen Delivery Me thod Blood pressure when I saw her was 130/84. Documenting provider has reviewed patient's vital signs: yes Hospitalist - H&P: Result Labs Labs: Short CBC 08/19/22 Range/Units 20:30 WBC 8.44 (4.50-11.00) K/uL Hgb 12.1 (12.0-16.0) gm/dL Hct 39.4 (33.0-51.0) % Plt Count 301 (140-440) K/uL BMP 08/19/22 20:30 Sodium 139 Potassium 2.9 L* Chloride 103 Carbon Dioxide 24 BUN 40 H Creatinine 2.4 H Glucose 124 H Calcium 9.0 Liver Function 08/19/22 Range/Units 20:30 Total Bilirubin 0.6 (0.1-1.5) mg/dL Direct Bilirubin 0.4 (0.0-0.5) mg/dL AST 17 (12-35) U/L ALT 15 (4-35) U/L Alkaline Phosphatase 101 (40-150) U/L Albumin 3.9 (3.3-5.0) g/dL Ordering Physician: Lul Cox M.D. Date of Service: 08/19/22 Procedure(s): CT chest abdomen pelv wo con Accession Number(s): [id number] cc: Provider,Not a Local ; Lul Cox M.D.~ For Patients: As a result of the Century Cures Act, medical imaging exams and procedure reports are released immediately into your electronic medical record. You may view this report before your referring provider. If you have questions, please contact your health care provider. INDICATION: Hypotension, abdominal pain, recent falls.. TECHNIQUE: CT chest, abdomen and pelvis acquired without contrast. COMPARISON: None. FINDINGS: CHEST: Cardiovascular structures: Heart size is normal. Thoracic aorta is normal in caliber. Main pulmonary artery is enlarged measuring up to 34 millimeters in diameter, which can be seen in setting of pulmonary hypertension. Mediastinum and jose luis: No mass or adenopathy. Hiatal hernia. Fluid-filled esophagus, aspiration risk. Lungs and pleura: Nodular ground-glass opacities are identified in the left lower lobe and lingula. Atelectasis versus scarring in the right lower lobe and right middle lobe. Punctate centrilobular nodular opacities in the right lower lobe may reflect infection, inflammation. Chest wall and axilla: No mass or adenopathy. Bones: No suspicious bone lesions. Unremarkable for age. ABDOMEN AND PELVIS: Liver: Unremarkable. Gallbladder and bile ducts: Absent. No significant intra or extrahepatic biliary ductal dilatation. Pancreas: Unremarkable. Spleen: Unremarkable. Adrenal glands: Unremarkable. Kidneys: Unremarkable. GI tract: Moderate hiatal hernia. Appendix is not well visualized. No bowel obstruction. Vascular structures: Abdominal aorta is normal in caliber. Lymph nodes: Unremarkable. Miscellaneous: Unremarkable. No free air or significant free fluid. Pelvic Organs: Unremarkable. Bones: Lumbar fusion changes. Multilevel degenerative changes in the spine. IMPRESSION: Nodular ground-glass opacities in the left lower lobe and lingula, may be related to aspiration/infection. In addition, there are punctate centrilobular nodular opacities in the right lower lobe which may reflect aspiration, bronchiolitis. Moderate hiatal hernia. Fluid-filled esophagus, aspiration risk. No acute intra-abdominal process identified. Please note that all CT scans at this facility use dose modulation, iterative reconstruction, and/or weight-based dosing when appropriate to reduce radiation dose to as low as reasonably achievable. Dictated by Vannesa Barone MD @ 08/19/2022 10:50:57 PM (Electronically Signed) Assessment and Plan Assessment and plan (1) Acute kidney injury: Problem comment: baseline Cr 0.8 Status: Acute (2) Laceration of left upper arm: Status: Acute (3) Hypotension: Status: Acute (4) Acute hypokalemia: Status: Acute (5) Aspiration pneumonia: Problem comment: RUL - swallowing evaluation showed mild pharyngeal dysphagia with occasional transient penetration of thin liquids and no aspiration 08/09/2021 - today's CT chest showed a fluid filled esophagus. I suspect this is least in part due to multiple sedating medications including tizanidine for muscle relaxation. I have ordered a swallow evaluation. Status: Acute Assessment and Plan: 67-year-old female with a complicated past medical history and multiple high- dose sedating medications who had a fall and unwitnessed possible syncope, hypotension which I believe is secondary to dehydration secondary to recent nausea and decreased appetite. Also has an elevated BUN and acute kidney injury secondary to dehydration. Her white count is not elevated and her lactate is within normal limits. She has not had any fevers. Therefore I do not think this is secondary to sepsis. She does have probable aspiration pneumonia, however, for which I will keep her on Zosyn overnight and see how she does. She is unable to give me accurate information about her medication list, so this will need to be reconciled tomorrow when she is more awake or we can get in t ouch with her . She is hypokalemic without hypo magnesemia. She got several doses of potassium in the emergency department and I will recheck this in the morning. I can not find any EKG or troponin, so I will check these. Has murmur, unclear if this is new. No major valvular abnormalities on echo in 2020. Will obtain an echocardiogram especially the setting of hypotension and possible syncope. (6) Heart murmur: Problem comment: unclear if this is new. ECHO in 2020 had no major valvular abnormalities. Obtain ECHO. Status: Acute
[2022-08-20] VITALS (11 sets, daily range): BP systolic 117–151; BP diastolic 77–101; PULSE 82–108; RESP 16–20; TEMP 36.3–37.2; O2SAT 89–97; BMI 36.0
[2022-08-20] MEDS: POTASSIUM CHLORIDE 10 MEQ/100 ML PIGGYBACK 100 MEQ IVPB
[2022-08-20 00:09] LABS: Procalcitonin* 0.22 ng/mL (<0.50)
[2022-08-20 01:12] LABS: Troponin I* 0.02 ng/mL (0.01-0.04)
[2022-08-20 01:20] LABS: C Reactive Protein* 5.5 mg/dL (0.5-1.0)
[2022-08-20] MEDS: 0.9 % SODIUM CHLORIDE 250 ml IV (03:12)
[2022-08-20] MEDS: PIPERACILLIN/TAZOBACTAM 3.375 GM in 0.9 % SODIUM CHLORIDE Mini-bag 100 ML IVPB ×4 (05:00→21:31)
--- NOTE | 2022-08-20 06:50 | PC.NURSE ---
Shift note: Pt reports lightheadedness and dizziness with ambulation. She is alert but fall asleep immediately, wakes up to voice for a second and falls back asleep. BPs are within desired limits, afebrile. Ambulates with assist of 1 and walker
[2022-08-20 06:53] LABS: Basophils Absolute Auto 0.01 K/uL (0.00-0.30); Basophils Percent Auto 0.1 % (0.0-3.0); Eosinophils Absolute Auto 0.19 K/uL (0.00-0.50); Eosinophils Percent Auto 2.7 % (0.0-7.0); Hematocrit 38.9 % (33.0-51.0); Hemoglobin* 11.8 gm/dL (12.0-16.0); Immature Granulocytes Abs Auto 0.07 K/uL (0.00-0.30); Lymphocytes Percent Auto 6.8 % (20-44); Mean Corpuscular HGB Conc 30 gm/dL (32-36); Mean Corpuscular Hemoglobin 27 pg (26-34); Mean Corpuscular Volume 90 fL (80-100); Monocytes Percent Auto 8.9 % (0.0-11.0); Neutrophils Percent Auto 80.5 % (42.0-72.0); Platelet Count* 177 K/uL (140-440); RDW Coefficient of Variation % 16.6 % (11.5-15.5); Red Blood Count 4.34 m/uL (4.00-5.20); White Blood Count* 6.94 K/uL (4.50-11.00)
[2022-08-20 06:57] LABS: Slide Review Reflex No
[2022-08-20 07:15] LABS: Appearance Urine Slightly Cloudy (Clear); Bilirubin Urine Negative (Negative); Blood Urine 1+ (Negative); Color Urine Yellow (Yellow); Glucose Urine Negative (Negative); Ketones Urine Trace (Negative); Leukocyte Esterase Urine Trace (Negative); Nitrite Urine Negative (Negative); Protein Urine 2+ (Negative); Specific Gravity Urine >= 1.030 (1.000-1.030); Urobilinogen Urine 0.2 (0.2-1.0)
[2022-08-20 07:32] LABS: Bacteria Urine Few; RBC Urine 0-2 (0-2); Squamous Epithelial Cell Urine Moderate (None-Few)
[2022-08-20] MEDS: POTASSIUM BICARB 25 MEQ EFFERVESCENT TAB 50 MEQ PO (07:54)
[2022-08-20] MEDS: TAMSULOSIN HCL 0.4 MG CAPSULE PO (08:58)
[2022-08-20] MEDS: LEVOTHYROXINE 75 MCG TABLET 150 MCG PO (08:58)
[2022-08-20] MEDS: OMEPRAZOLE 20 MG CAPSULE DR PO (08:58)
[2022-08-20] MEDS: HYDROXYCHLOROQUINE 200 MG TABLET PO ×2 (08:58→20:36)
[2022-08-20] MEDS: SODIUM CHLORIDE 0.9 % (FLUSH) 10 ML SYRINGE 5 ML IVF ×3 (08:59→20:37)
[2022-08-20] MEDS: ATORVASTATIN CALCIUM 40 MG TABLET PO (08:59)
[2022-08-20 09:18] LABS: Chloride* 108 mmol/L (96-114); Sodium* 140 mmol/L (135-149)
[2022-08-20 09:19] LABS: Potassium* 3.3 mmol/L (3.6-5.1)
[2022-08-20 09:21] LABS: Carbon Dioxide* 24 mmol/L (20-32); Creatinine* 1.6 mg/dL (0.5-1.5); Est. Creatinine Clearance* 31.54; Estimated Glomerular Filt Rate 36 ml/min
[2022-08-20 09:22] LABS: Blood Urea Nitrogen* 39 mg/dL (7-30); Calcium* 8.3 mg/dL (8.4-10.6); Glucose* 102 mg/dL (60-115)
--- NOTE | 2022-08-20 10:42 | RESP.RT ---
Home Oxygen; patient has had home oxygen since July 2021, post surgical procedure elsewhere. Uses it at night and during the day as needed. Patient is lying in bed resting; Currently on NC 2 Lpm, SaO2 92%, respiratory rate 18/minute, breathing regular/easy. Patient has MDI of albuterol for out of hospital use.
--- NOTE | 2022-08-20 15:23 | PM.IMPN1 ---
Progress Note: A&P Assessment and plan (1) Sepsis with acute hypoxic respiratory failure: Problem details: On admission she was found to be hypotensive with altered level of consciousness high, hypoxia acute kidney injury and pneumonia. These have clinically improved overnight with her blood pressure improving. Continue piperacillin tazobactam. Status: Acute (2) Acute kidney injury: Problem details: Baseline creatinine is 0.7 with BUN of 13. Creatinine yesterday 2.4 with BUN of 40. Creatinine today 1.6 with BUN of 39. Acute kidney injury appears to be due to combination of sepsis and acute illness with volume depletion from poor oral intake and vomiting. Continue to monitor as her sepsis is treated Status: Acute (3) Laceration of left upper arm: Problem details: Status post suturing. Now appears to bruised but otherwise healing well. Sutures out in about 10 days Status: Acute (4) Hypotension: Problem details: Due to sepsis and acute illness with nausea vomiting and poor oral intake. Hold blood pressure medication. Continue to monitor and treat Status: Acute (5) Acute hypokalemia: Problem details: Due to recent gastrointestinal illness with vomiting and anorexia. Replace and monitor Status: Acute (6) Aspiration pneumonia: Problem details: RUL - swallowing evaluation showed mild pharyngeal dysphagia with occasional transient penetration of thin liquids and no aspiration 08/09/2021 - today's CT chest showed a fluid filled esophagus. I suspect this is least in part due to multiple sedating medications including tizanidine for muscle relaxation. Will obtain esophagram. Patient should be upright for all feedings. She should never be supine in bed but should always have head of bed elevated to reduce aspiration risk Status: Acute (7) Heart murmur: Problem details: unclear if this is new. ECHO in 2020 had no major valvular abnormalities. Status: Acute (8) Chronic, continuous use of opioids: Problem details: Ongoing discussion about need to wean down opioids. These are almost certainly contributing to her overall decline in health with her disability, falling, weakness, hypoxia, sleep apnea, altered mental status, aspiration pneumonia. Will reduce her p.r.n. oxycodone from 10 mg to 5 mg every 4 hours and continue usual dose of OxyContin 20 mg t.i.d. Status: Acute (9) Physical deconditioning: Problem details: Patient has very sedentary lifestyle and as a result has progressive deconditioning. From her history it sounds like her does most of the housework and physical activity for her. Status: Acute Plan Continue in hospital for IV antibiotics, cardiopulmonary monitoring, monitoring of renal function in I&O, therapy to assess functional capacity. Time Spent With Patient Total time spent: Total time spent today is 55 minutes, 40 minutes in coordination of care discussing with patient and other providers ongoing evaluation management of these multiple medical problems. Subjective Date Seen: 08/20/22 Interval history: 67-year-old female with complicated medical history admitted after a fall at home associated with syncope and recent illness. Patient 1st became ill about 3 or 4 days ago. She had cold and cough, nausea, lack of appetite. She had an emesis on . She has not been eating or drinking much. She was walking around her bedroom when she felt very lightheaded and then blacked out. When she fell she cut and bruised inner portion of her left arm near the axilla. She thinks that this was injured when she fell on her dresser. Blood pressure was 73/34. She was also seen to be quite sedated. In the emergency department she was evaluated. Left upper arm was sutured. She had a chest abdomen pelvis CT showing: Nodular ground-glass opacities in the left lower lobe and lingula, may be related to aspiration/infection. In addition, there are punctate centrilobular nodular opacities in the right lower lobe which may reflect aspiration, bronchiolitis. Moderate hiatal hernia. Fluid-filled esophagus, aspiration risk. No acute intra-abdominal process identified. Laboratory studies were notable for hypokalemia with a potassium of 2.9 and acute kidney injury with a creatinine of 2.4 and a BUN of 40. Baseline creatinine is 0.7 with a BUN of 13. She was started on Pipracil and tazobactam and also received 1 dose of vancomycin. She has a remote history of MRSA but not in the past year. Patient is on chronic opioid therapy and has been advised here and with other providers to cut back on her dose but she is quite resistant to this. There was concern that this is contributing to her problems with weakness, falling, nocturnal hypoxia, recurrent aspiration pneumonia and ongoing decline in strength, endurance, exercise tolerance, activity level.. Exam Narrative: Exam Narrative: She is alert and able to give her own history. She is supine in bed when I see her. Eyes are normal. Oropharynx with small airway. Neck is supple without mass or adenopathy. Respirations with bibasilar crackles. No wheezing. Fair air exchange all lung earl. Cardiovascular: S1, S2, regular rate and rhythm. No murmur gallop or rub. Abdomen: Bowel sounds active. Abdomen is soft without tenderness or mass. Extremities without edema. Good capillary refill and pulses in her extremities. Diminished sensation in her feet. Const: Vital Signs, click to edit/add: Vital Signs - 24 hr 08/19/22 20:21 08/19/22 23:08 08/19/22 22:29 Temperature 95.0 F L Pulse Rate Pulse Rate [Left P ulse Oximeter] 91 Pulse Rate [Pulse Oximeter] Respiratory Rate 18 Blood Pressure [Le ft Radial Artery] Blood Pressure [Ri ght Upper Arm] 73/34 L 88/45 L 92/81 Pulse Oximetry 88 Oxygen Delivery Me thod Room Air Oxygen Flow Rate 08/19/22 23:33 08/20/22 00:02 08/20/22 00:02 Temperature 97.7 F Pulse Rate Pulse Rate [Left P ulse Oximeter] Pulse Rate [Pulse Oximeter] 82 Respiratory Rate 20 Blood Pressure [Le ft Radial Artery] 130/84 Blood Pressure [Ri ght Upper Arm] 92/51 L Pulse Oximetry 92 92 Oxygen Delivery Me thod Nasal Cannula Oxygen Flow Rate 1 08/20/22 00:02 08/20/22 03:00 08/20/22 07:52 Temperature 97.4 F L Pulse Rate Pulse Rate [Left P ulse Oximeter] Pulse Rate [Pulse Oximeter] 90 Respiratory Rate 20 Blood Pressure [Le ft Radial Artery] 144/95 H Blood Pressure [Ri ght Upper Arm] Pulse Oximetry 95 89 94 Oxygen Delivery Me thod Nasal Cannula Nasal Cannula Nasal Cannula Oxygen Flow Rate 1 1 1.5 08/20/22 07:52 08/20/22 07:52 08/20/22 08:05 Temperature 97.9 F Pulse Rate 96 Pulse Rate [Left P ulse Oximeter] Pulse Rate [Pulse Oximeter] 96 Respiratory Rate 18 Blood Pressure [Le ft Radial Artery] 148/101 H Blood Pressure [Ri ght Upper Arm] Pulse Oximetry 94 94 Oxygen Delivery Me thod Nasal Cannula Oxygen Flow Rate 1.5 08/20/22 10:38 08/20/22 11:14 Temperature 98.9 F Pulse Rate Pulse Rate [Left P ulse Oximeter] Pulse Rate [Pulse Oximeter] 98 Respiratory Rate 18 20 Blood Pressure [Le ft Radial Artery] 117/88 Blood Pressure [Ri ght Upper Arm] Pulse Oximetry 92 92 Oxygen Delivery Me thod Nasal Cannula Nasal Cannula Oxygen Flow Rate 2 2 Documenting provider has reviewed patient's vital signs: yes Labs Labs: Laboratory Results - last 24 hr 08/19/22 08/19/22 08/19/22 01:30 20:30 20:30 WBC RBC Hgb Hct MCV MCH MCHC RDW Coeff of [place] Plt Count Neut % (Auto) Lymph % (Auto) [place] % (Auto) Eos % (Auto) Baso % (Auto) Neut # (Auto) Lymph # (Auto) [place] # (Auto) Eos # (Auto) Baso # (Auto) INR Sodium 139 Potassium 2.9 L* Chloride 103 Carbon Dioxide 24 BUN 40 H Creatinine 2.4 H Estimated Creat Clear Estimated GFR 22 Glucose 124 H Lactate Calcium 9.0 Magnesium Total Bilirubin Direct Bilirubin AST ALT Alkaline Phosphatase Troponin I 0.02 C-Reactive Protein 5.5 H Total Protein Albumin Lipase Procalcitonin 0.22 Urine Color Urine Appearance Urine pH Ur Specific [place] Urine Protein Urine Glucose (UA) Urine Ketones Urine Blood Urine Nitrite Urine Bilirubin Urine Urobilinogen Ur Leukocyte Esterase Urine RBC Urine WBC Urine WBC Clumps Ur Squamous Epith Cells [place] Biurate Crystals Calcium Carbonate Cryst Calcium Phosphate Cryst Calcium Oxalate Crystal Cystine Crystals Uric Acid Crystals Triple Phos Crystals Sulfur Crystals Cholesterol Crystals Tyrosine Crystals Hippuric Acid Crystals Amorphous Sediment Other Sediment Urine Bacteria Fatty Casts Hyaline Casts Fine Granular Casts Coarse Granular Casts Waxy Casts RBC Casts WBC Casts Other Casts Urine Starch Urine Mucus Urine Trichomonas Urine Yeast SARS-CoV-2 (PCR) Influenza Type A (PCR) Influenza Type B (PCR) RSV (PCR) Blood Type O Negative Antibody Screen NEGATIVE 08/19/22 08/19/22 08/19/22 20:30 20:30 20:30 WBC 8.44 RBC 4.47 Hgb 12.1 Hct 39.4 MCV 88 MCH 27 MCHC 31 L RDW Coeff of Kaley 16.7 H Plt Count 301 Neut % (Auto) 78.6 H Lymph % (Auto) 10.4 L [place] % (Auto) 9.0 Eos % (Auto) 1.7 Baso % (Auto) 0.2 Neut # (Auto) 6.60 Lymph # (Auto) 0.90 [place] # (Auto) 0.80 Eos # (Auto) 0.14 Baso # (Auto) 0.02 INR 0.96 Sodium Potassium Chloride Carbon Dioxide BUN Creatinine Estimated Creat Clear Estimated GFR Glucose Lactate Calcium Magnesium 1.7 Total Bilirubin 0.6 Direct Bilirubin 0.4 AST 17 ALT 15 Alkaline Phosphatase 101 Troponin I C-Reactive Protein Total Protein 7.0 Albumin 3.9 Lipase 100 Procalcitonin Urine Color Urine Appearance Urine pH Ur Specific [place] Urine Protein Urine Glucose (UA) Urine Ketones Urine Blood Urine Nitrite Urine Bilirubin Urine Urobilinogen Ur Leukocyte Esterase Urine RBC Urine WBC Urine WBC Clumps Ur Squamous Epith Cells [place] Biurate Crystals Calcium Carbonate Cryst Calcium Phosphate Cryst Calcium Oxalate Crystal Cystine Crystals Uric Acid Crystals Triple Phos Crystals Sulfur Crystals Cholesterol Crystals Tyrosine Crystals Hippuric Acid Crystals Amorphous Sediment Other Sediment Urine Bacteria Fatty Casts Hyaline Casts Fine Granular Casts Coarse Granular Casts Waxy Casts RBC Casts WBC Casts Other Casts Urine Starch Urine Mucus Urine Trichomonas Urine Yeast SARS-CoV-2 (PCR) Influenza Type A (PCR) Influenza Type B (PCR) RSV (PCR) Blood Type Antibody Screen 08/19/22 08/19/22 08/19/22 20:30 20:35 21:07 WBC RBC Hgb Hct MCV MCH MCHC RDW Coeff of [place] Plt Count Neut % (Auto) Lymph % (Auto) [place] % (Auto) Eos % (Auto) Baso % (Auto) Neut # (Auto) Lymph # (Auto) [place] # (Auto) Eos # (Auto) Baso # (Auto) INR Sodium Potassium Chloride Carbon Dioxide BUN Creatinine Estimated Creat Clear Estimated GFR Glucose Lactate 3.8 H Calcium Magnesium Total Bilirubin Direct Bilirubin AST ALT Alkaline Phosphatase Troponin I C-Reactive Protein Total Protein Albumin Lipase Procalcitonin Urine Color Cancelled Urine Appearance Cancelled Urine pH Cancelled Ur Specific [place] Cancelled Urine Protein Cancelled Urine Glucose (UA) Cancelled Urine Ketones Cancelled Urine Blood Cancelled Urine Nitrite Cancelled Urine Bilirubin Cancelled Urine Urobilinogen Cancelled Ur Leukocyte Esterase Cancelled Urine RBC Cancelled Urine WBC Cancelled Urine WBC Clumps Cancelled Ur Squamous Epith Cells Cancelled [place] Biurate Crystals Cancelled Calcium Carbonate Cryst Cancelled Calcium Phosphate Cryst Cancelled Calcium Oxalate Crystal Cancelled Cystine Crystals Cancelled Uric Acid Crystals Cancelled Triple Phos Crystals Cancelled Sulfur Crystals Cancelled Cholesterol Crystals Cancelled Tyrosine Crystals Cancelled Hippuric Acid Crystals Cancelled Amorphous Sediment Cancelled Other Sediment Cancelled Urine Bacteria Cancelled Fatty Casts Cancelled Hyaline Casts Cancelled Fine Granular Casts Cancelled Coarse Granular Casts Cancelled Waxy Casts Cancelled RBC Casts Cancelled WBC Casts Cancelled Other Casts Cancelled Urine Starch Cancelled Urine Mucus Cancelled Urine Trichomonas Cancelled Urine Yeast Cancelled SARS-CoV-2 (PCR) Negative SARS-CoV-2 Influenza Type A (PCR) Negative PCR FLU A Influenza Type B (PCR) Negative PCR FLU B RSV (PCR) Negative PCR RSV Blood Type Antibody Screen 08/19/22 08/20/22 08/20/22 23:11 06:45 07:00 WBC 6.94 RBC 4.34 Hgb 11.8 L Hct 38.9 MCV 90 MCH 27 MCHC 30 L RDW Coeff of [place]aley 16.6 H Plt Count 177 Neut % (Auto) 80.5 H Lymph % (Auto) 6.8 L [place] % (Auto) 8.9 Eos % (Auto) 2.7 Baso % (Auto) 0.1 Neut # (Auto) 5.60 Lymph # (Auto) 0.50 L [place] # (Auto) 0.60 Eos # (Auto) 0.19 Baso # (Auto) 0.01 INR Sodium Potassium Chloride Carbon Dioxide BUN Creatinine Estimated Creat Clear Estimated GFR Glucose Lactate 1.1 Calcium Magnesium Total Bilirubin Direct Bilirubin AST ALT Alkaline Phosphatase Troponin I C-Reactive Protein Total Protein Albumin Lipase Procalcitonin Urine Color Yellow Urine Appearance Slightly Cloudy A Urine pH 5.0 Ur Specific [place] >= 1.030 Urine Protein 2+ A Urine Glucose (UA) Negative Urine Ketones Trace A Urine Blood 1+ A Urine Nitrite Negative Urine Bilirubin Negative Urine Urobilinogen 0.2 Ur Leukocyte Esterase Trace A Urine RBC 0-2 Urine WBC 2-5 Urine WBC Clumps Ur Squamous Epith Cells Moderate A [place] Biurate Crystals Calcium Carbonate Cryst Calcium Phosphate Cryst Calcium Oxalate Crystal Cystine Crystals Uric Acid Crystals Triple Phos Crystals Sulfur Crystals Cholesterol Crystals Tyrosine Crystals Hippuric Acid Crystals Amorphous Sediment Other Sediment Urine Bacteria Few A Fatty Casts Hyaline Casts Fine Granular Casts Coarse Granular Casts Waxy Casts RBC Casts WBC Casts Other Casts Urine Starch Urine Mucus Urine Trichomonas Urine Yeast SARS-CoV-2 (PCR) Influenza Type A (PCR) Influenza Type B (PCR) RSV (PCR) Blood Type Antibody Screen 08/20/22 08/20/22 08:42 08:42 WBC RBC Hgb Hct MCV MCH MCHC RDW Coeff of Kaley Plt Count Neut % (Auto) Lymph % (Auto) [place] % (Auto) Eos % (Auto) Baso % (Auto) Neut # (Auto) Lymph # (Auto) [place] # (Auto) Eos # (Auto) Baso # (Auto) INR Sodium 140 Potassium 3.3 L Chloride 108 Carbon Dioxide 24 BUN 39 H Creatinine 1.6 H Estimated Creat Clear 31.54 Estimated GFR 36 Glucose 102 Lactate Calcium 8.3 L Magnesium Total Bilirubin Direct Bilirubin AST ALT Alkaline Phosphatase Troponin I C-Reactive Protein 6.0 H Total Protein Albumin Lipase Procalcitonin Urine Color Urine Appearance Urine pH Ur Specific [place] Urine Protein Urine Glucose (UA) Urine Ketones Urine Blood Urine Nitrite Urine Bilirubin Urine Urobilinogen Ur Leukocyte Esterase Urine RBC Urine WBC Urine WBC Clumps Ur Squamous Epith Cells [place] Biurate Crystals Calcium Carbonate Cryst Calcium Phosphate Cryst Calcium Oxalate Crystal Cystine Crystals Uric Acid Crystals Triple Phos Crystals Sulfur Crystals Cholesterol Crystals Tyrosine Crystals Hippuric Acid Crystals Amorphous Sediment Other Sediment Urine Bacteria Fatty Casts Hyaline Casts Fine Granular Casts Coarse Granular Casts Waxy Casts RBC Casts WBC Casts Other Casts Urine Starch Urine Mucus Urine Trichomonas Urine Yeast SARS-CoV-2 (PCR) Influenza Type A (PCR) Influenza Type B (PCR) RSV (PCR) Blood Type Antibody Screen
[2022-08-20] MEDS: OXYCODONE 5 MG TABLET PO (16:31)
--- NOTE | 2022-08-20 18:34 | PC.NURSE ---
Shift [id number]- Patient is sleepy this afternoon, wakes for conversation but quickly falls to sleep. She is up with walker, gait belt and assist of 1 to BR. She remains on 2L O2 with saturations in mid-high 90s%. Rates pain to back at 7/10- PRN pain medication administered.
[2022-08-20] MEDS: LACTATED RINGERS 1000 ML 1,000 ML 75 ML IV (22:03)
[2022-08-21] VITALS (9 sets, daily range): BP systolic 135–181; BP diastolic 71–117; PULSE 94–116; RESP 18–20; TEMP 36.6–37.8; O2SAT 89–97
[2022-08-21] MEDS: OXYCODONE 5 MG TABLET PO ×3 (03:40→14:59)
[2022-08-21] MEDS: PIPERACILLIN/TAZOBACTAM 3.375 GM in 0.9 % SODIUM CHLORIDE Mini-bag 100 ML IVPB (03:41)
[2022-08-21] MEDS: 0.9 % SODIUM CHLORIDE 250 ml IV ×2 (03:41→10:36)
--- NOTE | 2022-08-21 05:33 | PC.NURSE ---
Pt slept well during night, up to br x2 with walker and GB, tolerates activity well. Pt NPO since midnight. back pain 7-8/10 when awake.
[2022-08-21 06:38] LABS: Basophils Absolute Auto 0.02 K/uL (0.00-0.30); Basophils Percent Auto 0.3 % (0.0-3.0); Eosinophils Absolute Auto 0.34 K/uL (0.00-0.50); Eosinophils Percent Auto 4.9 % (0.0-7.0); Hematocrit 38.1 % (33.0-51.0); Hemoglobin* 11.8 gm/dL (12.0-16.0); Lymphocytes Percent Auto 9.1 % (20-44); Mean Corpuscular HGB Conc 31 gm/dL (32-36); Mean Corpuscular Hemoglobin 27 pg (26-34); Mean Corpuscular Volume 89 fL (80-100); Monocytes Percent Auto 8.9 % (0.0-11.0); Neutrophils Percent Auto 76.8 % (42.0-72.0); Platelet Count* 204 K/uL (140-440); RDW Coefficient of Variation % 16.2 % (11.5-15.5); White Blood Count* 6.93 K/uL (4.50-11.00)
[2022-08-21 06:44] LABS: Slide Review Reflex No
[2022-08-21 06:52] LABS: Chloride* 108 mmol/L (96-114); Potassium* 3.9 mmol/L (3.6-5.1); Sodium* 139 mmol/L (135-149)
[2022-08-21] MEDS: LEVOTHYROXINE 75 MCG TABLET 150 MCG PO (06:52)
[2022-08-21 06:56] LABS: Blood Urea Nitrogen* 25 mg/dL (7-30); Carbon Dioxide* 26 mmol/L (20-32); Creatinine* 0.7 mg/dL (0.5-1.5); Est. Creatinine Clearance* 50.47; Estimated Glomerular Filt Rate 96 ml/min; Glucose* 88 mg/dL (60-115); Magnesium* 1.5 mg/dL (1.5-2.6)
[2022-08-21 06:59] LABS: C Reactive Protein* 8.9 mg/dL (0.5-1.0)
--- NOTE | 2022-08-21 07:00 | CRLHL7_ITS ---
For Patients: As a result of the Century Cures Act, medical imaging exams and procedure reports are released immediately into your electronic medical record. You may view this report before your referring provider. If you have questions, please contact your health care provider. Technique: Single water-soluble contrast esophagram performed with Gastrografin. Fluoroscopy time 1 minute 11 seconds. Indication: Poor esophageal motility. Recurrent aspiration. Comparison: 06/10/2020 Findings: Narrowing of the distal esophagus is present measuring 8 millimeters with a transient shelf-like area and narrow column of contrast. Failure of passage of the barium tablet through the area. Persistent hiatal hernia is present measuring approximately 3.5 cm. Spontaneous reflux and decreased esophageal motility. No aspiration. The mid and distal esophagus is distended above the area of narrowing. Impression: Mild achalasia is present with decreased esophageal motility and sliding hiatal hernia. Dictated by Skip Foster MD @ 08/21/2022 11:17:47 AM (Electronically Signed)
[2022-08-21] MEDS: ONDANSETRON 2 MG/ML inj 4 MG IVP (10:21)
[2022-08-21] MEDS: cefTRIAXone 1 GM in 0.9 % SODIUM CHLORIDE Mini-bag 100 ML IVPB (10:35)
[2022-08-21] MEDS: HYDROXYCHLOROQUINE 200 MG TABLET PO ×2 (10:41→20:46)
[2022-08-21] MEDS: OMEPRAZOLE 20 MG CAPSULE DR PO (10:41)
[2022-08-21] MEDS: ATORVASTATIN CALCIUM 40 MG TABLET PO (10:42)
[2022-08-21] MEDS: TAMSULOSIN HCL 0.4 MG CAPSULE PO (10:42)
[2022-08-21] MEDS: SODIUM CHLORIDE 0.9 % (FLUSH) 10 ML SYRINGE 5 ML IVF (10:42)
[2022-08-21] MEDS: LACTATED RINGERS 1000 ML 1,000 ML 75 ML IV (14:58)
--- NOTE | 2022-08-21 15:40 | PM.IMPN1 ---
Progress Note: A&P Assessment and plan (1) Sepsis with acute hypoxic respiratory failure: Problem details: On admission she was found to be hypotensive with altered level of consciousness high, hypoxia acute kidney injury and pneumonia. These have clinically improved overnight with her blood pressure improving. MRSA culture negative. Switch to ceftriaxone plus azithromycin. Status: Acute (2) Acute kidney injury: Problem details: Baseline creatinine is 0.7 with BUN of 13. Creatinine yesterday 2.4 with BUN of 40. Creatinine today 1.6 with BUN of 39. Acute kidney injury appears to be due to combination of sepsis and acute illness with volume depletion from poor oral intake and vomiting. Continue to monitor as her sepsis is treated Status: Acute (3) Laceration of left upper arm: Problem details: Status post suturing. Now appears to bruised but otherwise healing well. Sutures out in about 10 days Status: Acute (4) Hypotension: Problem details: Due to sepsis and acute illness with nausea vomiting and poor oral intake. Hold blood pressure medication. Continue to monitor and treat Status: Acute (5) Acute hypokalemia: Problem details: Due to recent gastrointestinal illness with vomiting and anorexia. Replace and monitor Status: Acute (6) Aspiration pneumonia: Problem details: RUL - swallowing evaluation showed mild pharyngeal dysphagia with occasional transient penetration of thin liquids and no aspiration 08/09/2021 - today's CT chest showed a fluid filled esophagus. I suspect this is least in part due to multiple sedating medications including tizanidine for muscle relaxation. Esophagram shows findings of achalasia. Patient should be upright for all feedings. She should never be supine in bed but should always have head of bed elevated to reduce aspiration risk Status: Acute (7) Heart murmur: Problem details: unclear if this is new. ECHO in 2020 had no major valvular abnormalities. Status: Acute (8) Chronic, continuous use of opioids: Problem details: Ongoing discussion about need to wean down opioids. These are almost certainly contributing to her overall decline in health with her disability, falling, weakness, hypoxia, sleep apnea, altered mental status, aspiration pneumonia. Will reduce her p.r.n. oxycodone from 10 mg to 5 mg every 4 hours and continue usual dose of OxyContin 20 mg t.i.d. Status: Acute (9) Physical deconditioning: Problem details: Today with fairly minimal activity she became quite weak lightheaded dyspneic and diaphoretic. Unclear what all all factors went into this. It was clear that she could not safely manage on her own. She nearly fell without staff helping her to bed. she was not hypotensive however. Not yet safe to go home. She needs more time sitting up in a chair and less time in bed. This may improve her tone Patient has very sedentary lifestyle and as a result has progressive deconditioning. From her history it sounds like her does most of the housework and physical activity for her. Status: Acute Plan Continue in hospital for cardia respiratory monitoring and IV antibiotics. Not safe to go home yet. Time Spent With Patient Total time spent: Total time spent today is 60 minutes, 40 minutes in coordination care discussing with patient other providers ongoing evaluation management of aspiration, achalasia, profound weakness. Subjective Date Seen: 08/21/22 Interval history: Patient seen in followup of hospitalization for fall with possible syncope, aspiration pneumonia, frailty. Patient reported feeling fairly well this morning and was anxious to go home. She was able to wean off of oxygen today though she uses it at night as she does at home. Reports her breathing feels good. She is not having any chest pain. She has been able to eat and drink. This morning she had an esophagram which showed achalasia. After that test was done she did vomit up some contrast. This afternoon she went to the bathroom and did physical therapy in the room and during this became profoundly weak dyspneic and diaphoretic. Blood pressure measurement at the time showed hypertension with systolics in the 180s. Her pulse was in the 120s. She also was found to have a temperature of 100.2? F. staff were able to your back to bed before there was a fall or loss of consciousness. She did not have chest pain at the time. Exam Narrative: Exam Narrative: She is alert and appears in no distress when I see her this morning. At that time respirations are clear to auscultation except for a few basilar crackles. Cardiovascular: S1, S2, regular rate and rhythm. Abdomen: Bowel sounds active. Abdomen is soft without tenderness or mass. Extremities with trace edema. When I see her this afternoon she is weak, shaky and diaphoretic. Abnormal vitals as noted above. She reporting no other new symptoms at that time. Const: Vital Signs, click to edit/add: Vital Signs - 24 hr 08/20/22 16:00 08/20/22 16:00 08/20/22 19:00 Temperature 98.3 F 97.8 F Pulse Rate Pulse Rate [Pulse Oximeter] 100 108 H Respiratory Rate 18 16 Blood Pressure [Le ft Radial Artery] 138/77 Blood Pressure [Ri ght Arm] 120/81 Pulse Oximetry 97 97 92 Oxygen Delivery Me thod Nasal Cannula Nasal Cannula Nasal Cannula Oxygen Flow Rate 2 2 2 08/20/22 22:59 08/20/22 22:59 08/20/22 23:00 Temperature Pulse Rate 94 Pulse Rate [Pulse Oximeter] 98 Respiratory Rate 16 16 Blood Pressure [Le ft Radial Artery] Blood Pressure [Ri ght Arm] Pulse Oximetry 92 Oxygen Delivery Me thod Nasal Cannula Oxygen Flow Rate 2 08/20/22 23:00 08/21/22 03:00 08/21/22 07:00 Temperature 97.6 F 98.0 F Pulse Rate Pulse Rate [Pulse Oximeter] 94 98 Respiratory Rate 20 20 Blood Pressure [Le ft Radial Artery] Blood Pressure [Ri ght Arm] 151/91 H 156/84 H Pulse Oximetry 93 96 97 Oxygen Delivery Me thod Nasal Cannula Nasal Cannula Oxygen Flow Rate 2 2 08/21/22 07:00 08/21/22 07:00 08/21/22 08:35 Temperature 98.1 F Pulse Rate Pulse Rate [Pulse Oximeter] 101 H Respiratory Rate 18 18 Blood Pressure [Le ft Radial Artery] Blood Pressure [Ri ght Arm] 166/117 H Pulse Oximetry 97 97 89 Oxygen Delivery Me thod Nasal Cannula Nasal Cannula Oxygen Flow Rate 2 2 08/21/22 07:40 08/21/22 07:00 08/21/22 11:00 Temperature 98.8 F Pulse Rate 97 Pulse Rate [Pulse Oximeter] 101 H 106 H Respiratory Rate 18 18 Blood Pressure [Le ft Radial Artery] Blood Pressure [Ri ght Arm] 178/103 H Pulse Oximetry 93 Oxygen Delivery Me thod Room Air Oxygen Flow Rate 08/21/22 15:00 08/21/22 15:00 Temperature 100.0 F H Pulse Rate Pulse Rate [Pulse Oximeter] 116 H Respiratory Rate 18 18 Blood Pressure [Le ft Radial Artery] Blood Pressure [Ri ght Arm] 181/98 H Pulse Oximetry 90 92 Oxygen Delivery Me thod Room Air Room Air Oxygen Flow Rate Documenting provider has reviewed patient's vital signs: yes Labs Labs: Laboratory Results - last 24 hr 08/21/22 08/21/22 06:31 06:31 WBC 6.93 RBC 4.30 Hgb 11.8 L Hct 38.1 MCV 89 MCH 27 MCHC 31 L RDW Coeff of Kaley 16.2 H Plt Count 204 Neut % (Auto) 76.8 H Lymph % (Auto) 9.1 L [place] % (Auto) 8.9 Eos % (Auto) 4.9 Baso % (Auto) 0.3 Neut # (Auto) 5.30 Lymph # (Auto) 0.60 L [place] # (Auto) 0.60 Eos # (Auto) 0.34 Baso # (Auto) 0.02 Sodium 139 Potassium 3.9 Chloride 108 Carbon Dioxide 26 BUN 25 Creatinine 0.7 Estimated Creat Clear 50.47 Estimated GFR 96 Glucose 88 Calcium 9.0 Magnesium 1.5 C-Reactive Protein 8.9 H
[2022-08-21] MEDS: MAGNESIUM IV 2 GM/50 ML PIGGYBACK IVPB (15:56)
[2022-08-21] MEDS: ACETAMINOPHEN 325 MG TABLET 650 MG PO (15:58)
[2022-08-21 16:18] LABS: Troponin I* < 0.01 ng/mL (0.01-0.04)
[2022-08-21] MEDS: AZITHROMYCIN 250 MG TABLET 500 MG PO (16:24)
[2022-08-21 17:32] LABS: Thyroid Stimulating Hormone* 0.439 uIU/mL (0.270-4.20)
[2022-08-21] MEDS: ISOSORBIDE DINITRATE 10 MG TABLET 5 MG PO (17:49)
--- NOTE | 2022-08-21 18:23 | PC.NURSE ---
End of shift-- Pleasant and cooperative, alert and oriented patient. VSS, though hypertensive with systolic pressures 150s-190s today and occasionally tachycardic with HR low 100s. Highest temp today was 100.0F. She continually c/o pain which she rates 7 out of 10 in her back. She states improvement following oxycodone, but continues to rate it 7 out of 10. Occasional fine crackle or expiratory wheeze noted in bases of lungs, otherwise CTA. She does have a worsening dry cough this afternoon. Telemetry shows NSR to sinus tachycardia. Murmur. She had 1x 100ml bilious emesis this morning. She was given Zofran and has denied nausea since but has declined to eat any more than a cruz ice. She also had 5x liquid, green, partially incontinent stools today. She was up to the chair and BR with SBA, belt and walker and tolerated it well. Following therapy this afternoon, pt became diaphoretic and shaky. At that time, pt was hypertensive, tachycardic and had a temp of 100.0F. MD is aware. Pt was given pain meds, tylenol and magnesium per MD order and appeared greatly improved after about half an hour. Report to oncoming shift.
[2022-08-22] VITALS (10 sets, daily range): BP systolic 129–203; BP diastolic 94–135; PULSE 88–110; RESP 16–22; TEMP 36.1–36.6; O2SAT 90–97
[2022-08-22] MEDS: OXYCODONE 5 MG TABLET PO ×2 (01:35→07:35)
[2022-08-22] MEDS: ACETAMINOPHEN 325 MG TABLET 650 MG PO ×3 (01:36→23:16)
[2022-08-22] MEDS: LACTATED RINGERS 1000 ML 1,000 ML 75 ML IV ×2 (06:14→19:40)
[2022-08-22] MEDS: LEVOTHYROXINE 75 MCG TABLET 150 MCG PO (06:15)
--- NOTE | 2022-08-22 07:01 | PC.NURSE ---
Shift note: Pt has had 3x greenish diarrhea. Soiled herself in bed and needed to change the beddings. Vitally stable and no weakness.
[2022-08-22 07:25] LABS: Basophils Absolute Auto 0.02 K/uL (0.00-0.30); Basophils Percent Auto 0.4 % (0.0-3.0); Eosinophils Absolute Auto 0.08 K/uL (0.00-0.50); Eosinophils Percent Auto 1.7 % (0.0-7.0); Hematocrit 31.4 % (33.0-51.0); Hemoglobin* 9.9 gm/dL (12.0-16.0); Immature Granulocytes Abs Auto 0.01 K/uL (0.00-0.30); Immature Granulocytes Pct Auto 0.2 %; Lymphocytes Percent Auto 9.8 % (20-44); Mean Corpuscular HGB Conc 32 gm/dL (32-36); Mean Corpuscular Hemoglobin 27 pg (26-34); Mean Corpuscular Volume 87 fL (80-100); Monocytes Percent Auto 8.7 % (0.0-11.0); Neutrophils Percent Auto 79.2 % (42.0-72.0); Platelet Count* 242 K/uL (140-440); RDW Coefficient of Variation % 16.1 % (11.5-15.5); Red Blood Count 3.63 m/uL (4.00-5.20); White Blood Count* 4.58 K/uL (4.50-11.00)
[2022-08-22 07:27] LABS: Slide Review Reflex No
[2022-08-22 07:41] LABS: Chloride* 109 mmol/L (96-114); Sodium* 138 mmol/L (135-149)
[2022-08-22 07:42] LABS: Potassium* 3.3 mmol/L (3.6-5.1)
[2022-08-22 07:44] LABS: Creatinine* 0.5 mg/dL (0.5-1.5); Est. Creatinine Clearance* 50.47; Estimated Glomerular Filt Rate 104 ml/min
[2022-08-22 07:45] LABS: Blood Urea Nitrogen* 14 mg/dL (7-30); Calcium* 9.1 mg/dL (8.4-10.6); Carbon Dioxide* 26 mmol/L (20-32); Glucose* 113 mg/dL (60-115)
[2022-08-22 07:48] LABS: C Reactive Protein* 6.5 mg/dL (0.5-1.0)
[2022-08-22] MEDS: HYDROmorphone 0.5 mg/0.5 ml inj 1 MG IVP (08:48)
[2022-08-22] MEDS: ONDANSETRON 2 MG/ML inj 4 MG IVP (09:04)
[2022-08-22] MEDS: cefTRIAXone 1 GM in 0.9 % SODIUM CHLORIDE Mini-bag 100 ML IVPB (09:06)
[2022-08-22] MEDS: 0.9 % SODIUM CHLORIDE 250 ml IV (09:07)
[2022-08-22] MEDS: TAMSULOSIN HCL 0.4 MG CAPSULE PO (09:17)
[2022-08-22] MEDS: HYDROXYCHLOROQUINE 200 MG TABLET PO ×2 (09:17→20:49)
[2022-08-22] MEDS: OMEPRAZOLE 20 MG CAPSULE DR PO (09:17)
[2022-08-22] MEDS: ATORVASTATIN CALCIUM 40 MG TABLET PO (09:17)
[2022-08-22] MEDS: OXYCODONE (CR) 10 MG TAB.ER.12H PO ×2 (09:19→16:34)
[2022-08-22] MEDS: POTASSIUM BICARB 25 MEQ EFFERVESCENT TAB PO (09:19)
[2022-08-22] MEDS: ISOSORBIDE DINITRATE 10 MG TABLET 5 MG PO ×3 (09:24→18:14)
--- NOTE | 2022-08-22 12:43 | P.IMPN_ITS ---
Progress Note: A&P Assessment and plan (1) Sepsis with acute hypoxic respiratory failure: Problem details: On admission she was found to be hypotensive with altered level of consciousness high, hypoxia acute kidney injury and pneumonia. These have clinically improved overnight with her blood pressure improving. MRSA culture negative. Switch to ceftriaxone plus azithromycin. Status: Acute (2) Acute kidney injury: Problem details: Baseline creatinine is 0.7 with BUN of 13. Creatinine yesterday 2.4 with BUN of 40. Creatinine today 1.6 with BUN of 39. Acute kidney injury appears to be due to combination of sepsis and acute illness with volume depletion from poor oral intake and vomiting. Continue to monitor as her sepsis is treated Status: Acute (3) Laceration of left upper arm: Problem details: Status post suturing. Now appears to bruised but otherwise healing well. Sutures out in about 10 days Status: Acute (4) Hypotension: Problem details: Due to sepsis and acute illness with nausea vomiting and poor oral intake. Hold blood pressure medication. Continue to monitor and treat Status: Acute (5) Acute hypokalemia: Problem details: Due to recent gastrointestinal illness with vomiting and anorexia. Replace and monitor Status: Acute (6) Aspiration pneumonia: Problem details: RUL - swallowing evaluation showed mild pharyngeal dysphagia with occasional transient penetration of thin liquids and no aspiration 08/09/2021 - today's CT chest showed a fluid filled esophagus. I suspect this is least in part due to multiple sedating medications including tizanidine for muscle relaxation. Esophagram shows findings of achalasia. Patient should be upright for all feedings. She should never be supine in bed but should always have head of bed elevated to reduce aspiration risk Status: Acute (7) Chronic, continuous use of opioids: Problem details: Ongoing discussion about need to wean down opioids. These are almost certainly contributing to her overall decline in health with her disability, falling, weakness, hypoxia, sleep apnea, altered mental status, aspiration pneumonia. Currently am recommending that she not be self administering p.r.n. oxycodone as I think this is been a problem for her. I am going to increase her OxyContin to 30 mg every 8 hours and stop p.r.n. oxycodone Status: Acute (8) Physical deconditioning: Problem details: Today with fairly minimal activity she became quite weak lightheaded dyspneic and diaphoretic. Unclear what all all factors went into this. It was clear that she could not safely manage on her own. She nearly fell without staff helping her to bed. she was not hypotensive however. Not yet safe to go home. She needs more time sitting up in a chair and less time in bed. This may improve her tone Patient has very sedentary lifestyle and as a result has progressive deconditioning. From her history it sounds like her does most of the housework and physical activity for her. Status: Acute (9) Opioid withdrawal: Problem details: Stop p.r.n. oxycodone and continue scheduled OxyContin at 30 mg every 8 hours. Will assess whether this will resolve her withdrawal symptoms as well as manage her pain Status: Acute (10) Syncope: Problem details: Patient reported syncope at home causing her left arm injury when she fell. Here she has been having episodes where she if is profoundly weak and unable to stand without someone holding onto her. When these occur she does not have hypotension. She is noted to have hypertension with the episode yesterday. Echo is unremarkable. Status: Acute Plan Continue in hospital for ongoing management of pneumonia, alcohol withdrawal, syncope, falls. Time Spent With Patient Total time spent: Total time spent today is 45 minutes, 30 minutes in coordination of care discussing with patient other providers ongoing management of pneumonia, alcohol withdrawal, falls. Subjective Date Seen: 08/22/22 Interval history: Patient seen in followup of hospitalization for fall with possible syncope, aspiration pneumonia, frailty. Patient reported feeling fairly well this morning and was anxious to go home. Yesterday afternoon she had an episode of feeling profoundly weak and dyspneic and diaphoretic. This did pass and she had a relatively good night until this morning when she developed diarrhea and now is complaining of worsening abdominal pain and back pain. She is quite agitated as well. Her vital signs have been normal. There was concern that she was having opioid withdrawal symptoms. She has been getting her OxyContin but has been taking very little of her oxycodone. Prior to admission her total daily dose of oxycodone and OxyContin was thought to be about 120 mg a day. At that time there was concern about overuse or misuse of this causing her sedation and falls. I reduced her p.r.n. oxycodone but she has asked for very little of it and I think as a result is now in opioid withdrawal. She did receive a dose of IV dilaudid and with this she had much improved symptoms. Exam Narrative: Exam Narrative: She is alert and initially quite agitated and writhing in pain when I see her. After she receives the IV dilaudid she still reporting some pain but much less agitated and writhing. Vital signs have been normal except blood pressure which is elevated. Respirations are clear to auscultation. Cardiovascular: S1, S2, regular rate and rhythm. Abdomen: Bowel sounds active. Abdomen is soft withou t focal tenderness. Examination of her back shows no area of focal tenderness. She reports back pain all over, midline both sides, up and down. She moves her lower extremities well. Const: Vital Signs, click to edit/add: Vital Signs - 24 hr 08/21/22 15:00 08/21/22 15:00 08/21/22 15:00 Temperature 100.0 F H Pulse Rate Pulse Rate [Pulse Oximeter] 116 H Pulse Rate [orthos tatic lying Left P ulse Oximeter] 102 H Pulse Rate [orthos tatic sitting Left Pulse Oximeter] 108 H Pulse Rate [orthos tatic standing Lef t Pulse Oximeter] 109 H Respiratory Rate 18 18 Blood Pressure [Ri ght Arm] 181/98 H Blood Pressure [or thostatic lying Ri ght Arm] 172/90 H Blood Pressure [or thostatic sitting Right Arm] 170/114 H Blood Pressure [or thostatic standing Right Arm] 157/114 H Pulse Oximetry 90 92 Oxygen Delivery Me thod Room Air Room Air 08/21/22 17:17 08/21/22 15:00 08/21/22 15:00 Temperature 98.3 F Pulse Rate 101 H Pulse Rate [Pulse Oximeter] 116 H Pulse Rate [orthos tatic lying Left P ulse Oximeter] Pulse Rate [orthos tatic sitting Left Pulse Oximeter] Pulse Rate [orthos tatic standing Lef t Pulse Oximeter] Respiratory Rate 18 Blood Pressure [Ri ght Arm] Blood Pressure [or thostatic lying Ri ght Arm] Blood Pressure [or thostatic sitting Right Arm] Blood Pressure [or thostatic standing Right Arm] Pulse Oximetry Oxygen Delivery Me thod 08/21/22 19:00 08/21/22 23:00 08/21/22 23:00 Temperature 98.1 F Pulse Rate 94 Pulse Rate [Pulse Oximeter] 100 100 Pulse Rate [orthos tatic lying Left P ulse Oximeter] Pulse Rate [orthos tatic sitting Left Pulse Oximeter] Pulse Rate [orthos tatic standing Lef t Pulse Oximeter] Respiratory Rate 18 18 Blood Pressure [Ri ght Arm] 138/85 Blood Pressure [or thostatic lying Ri ght Arm] Blood Pressure [or thostatic sitting Right Arm] Blood Pressure [or thostatic standing Right Arm] Pulse Oximetry 91 Oxygen Delivery Me thod Room Air 08/21/22 23:00 08/21/22 23:00 08/22/22 03:00 Temperature 97.9 F 97.6 F Pulse Rate Pulse Rate [Pulse Oximeter] 94 96 Pulse Rate [orthos tatic lying Left P ulse Oximeter] Pulse Rate [orthos tatic sitting Left Pulse Oximeter] Pulse Rate [orthos tatic standing Lef t Pulse Oximeter] Respiratory Rate 18 18 18 Blood Pressure [Ri ght Arm] 135/71 170/100 H Blood Pressure [or thostatic lying Ri ght Arm] Blood Pressure [or thostatic sitting Right Arm] Blood Pressure [or thostatic standing Right Arm] Pulse Oximetry 94 94 95 Oxygen Delivery Me thod Room Air Room Air Room Air 08/22/22 07:00 08/22/22 07:00 08/22/22 08:00 Temperature 97.5 F L Pulse Rate Pulse Rate [Pulse Oximeter] 88 Pulse Rate [orthos tatic lying Left P ulse Oximeter] Pulse Rate [orthos tatic sitting Left Pulse Oximeter] Pulse Rate [orthos tatic standing Lef t Pulse Oximeter] Respiratory Rate 16 18 Blood Pressure [Ri ght Arm] 185/104 H Blood Pressure [or thostatic lying Ri ght Arm] Blood Pressure [or thostatic sitting Right Arm] Blood Pressure [or thostatic standing Right Arm] Pulse Oximetry 94 94 90 Oxygen Delivery Me thod Room Air Room Air 08/22/22 07:00 08/22/22 07:25 08/22/22 11:00 Temperature 97.4 F L Pulse Rate 95 Pulse Rate [Pulse Oximeter] 88 105 H Pulse Rate [orthos tatic lying Left P ulse Oximeter] Pulse Rate [orthos tatic sitting Left Pulse Oximeter] Pulse Rate [orthos tatic standing Lef t Pulse Oximeter] Respiratory Rate 18 18 Blood Pressure [Ri ght Arm] 203/135 H Blood Pressure [or thostatic lying Ri ght Arm] Blood Pressure [or thostatic sitting Right Arm] Blood Pressure [or thostatic standing Right Arm] Pulse Oximetry 92 Oxygen Delivery Me thod Room Air 08/22/22 12:37 Temperature Pulse Rate Pulse Rate [Pulse Oximeter] Pulse Rate [orthos tatic lying Left P ulse Oximeter] Pulse Rate [orthos tatic sitting Left Pulse Oximeter] Pulse Rate [orthos tatic standing Lef t Pulse Oximeter] Respiratory Rate Blood Pressure [Ri ght Arm] 186/105 H Blood Pressure [or thostatic lying Ri ght Arm] Blood Pressure [or thostatic sitting Right Arm] Blood Pressure [or thostatic standing Right Arm] Pulse Oximetry Oxygen Delivery Me thod Documenting provider has reviewed patient's vital signs: yes Labs Labs: Laboratory Results - last 24 hr 08/21/22 08/21/22 08/22/22 15:20 15:20 07:16 WBC 4.58 RBC 3.63 L Hgb 9.9 L Hct 31.4 L MCV 87 MCH 27 MCHC 32 RDW Coeff of Kaley 16.1 H Plt Count 242 Neut % (Auto) 79.2 H Lymph % (Auto) 9.8 L [place] % (Auto) 8.7 Eos % (Auto) 1.7 Baso % (Auto) 0.4 Neut # (Auto) 3.60 Lymph # (Auto) 0.40 L [place] # (Auto) 0.40 Eos # (Auto) 0.08 Baso # (Auto) 0.02 Sodium Potassium Chloride Carbon Dioxide BUN Creatinine Estimated Creat Clear Estimated GFR Glucose Calcium Troponin I < 0.01 L C-Reactive Protein TSH 0.439 08/22/22 07:16 WBC RBC Hgb Hct MCV MCH MCHC RDW Coeff of Kaley Plt Count Neut % (Auto) Lymph % (Auto) [place] % (Auto) Eos % (Auto) Baso % (Auto) Neut # (Auto) Lymph # (Auto) [place] # (Auto) Eos # (Auto) Baso # (Auto) Sodium 138 Potassium 3.3 L Chloride 109 Carbon Dioxide 26 BUN 14 Creatinine 0.5 Estimated Creat Clear 50.47 Estimated GFR 104 Glucose 113 Calcium 9.1 Troponin I C-Reactive Protein 6.5 H TSH
--- NOTE | 2022-08-22 14:55 | PC.NURSE ---
End of shift- Pt has been pleasant and cooperative today. VSS, though she remains hypertensive and occasionally tachycardic and pt has been afebrile today. SPO2 maintained >90% while awake, however while asleep this afternoon, sats dropped as low as 81% on RA and O2 was applied at 1.5L per n.c. to maintain sats >90%. This morning patient began writhing in pain and vomiting, became restless and diaphoretic. At that time she was hypertensive, tachycardic and afebrile. Md was notified and pt was given IV Dilaudid and medication changes were initiated per MD order. Since that time, patient continues to rate her pain 7 out of 10, but she appears far more comfortable. LS diminished in bases and occasional expiratory wheezes were noted. Telemetry shows NSR to Sinus tachycardia. She had multiple emesis this morning and was given Zofran at that time, but pt has denied nausea since. She has also refused to eat much. She drank a sprite and ate about half a yogurt and half a pudding today but has refused anything more. She continues to have frequent loose, green stools and has had 5 of them today. She was up to the bathroom with assist of 1, belt and walker and tolerated it well. Report to oncoming shift.
[2022-08-22] MEDS: AZITHROMYCIN 250 MG TABLET 500 MG PO (16:35)
--- NOTE | 2022-08-22 18:57 | PC.NURSE ---
PATIENT ALERT AND ORIENTED, DIARRHEA STOOL SAMPLE ORDER OBTAINED NO STOOLS SINCE ORDER OBTAINED, DECLINED DINNER ATE SOME SPRITE, UP SBA WITH WALKER TOLERATING WELL, RATING PAIN 8/10 IN BACK THIS PAIN IS CHRONIC PER PATIENT, SCHEDULED MEDICATIONS GIVEN.
[2022-08-22] MEDS: SODIUM CHLORIDE 0.9 % (FLUSH) 10 ML SYRINGE 5 ML IVF (20:50)
[2022-08-23] VITALS (8 sets, daily range): BP systolic 149–196; BP diastolic 77–127; PULSE 88–111; RESP 16–22; TEMP 36.6–36.9; O2SAT 94–100
[2022-08-23] MEDS: OXYCODONE (CR) 10 MG TAB.ER.12H PO ×3 (01:08→15:33)
[2022-08-23] MEDS: ACETAMINOPHEN 325 MG TABLET 650 MG PO ×2 (05:29→17:47)
[2022-08-23] MEDS: LEVOTHYROXINE 75 MCG TABLET 150 MCG PO (05:30)
[2022-08-23] MEDS: LACTATED RINGERS 1000 ML 1,000 ML 75 ML IV (05:31)
--- NOTE | 2022-08-23 06:07 | PC.NURSE ---
Patient is alert and oriented x3, able to call for help. Pain managed with scheduled oxycodone and PRN Tylenol. Patient requires assist of one with walker using gait belt, continent of bowel and bladder. IV fluid infusing at 75 ml/hr. up to BR x6 this shift. Patient appears stable, call light within reach.
[2022-08-23 06:49] LABS: Basophils Percent Auto 0.5 % (0.0-3.0); Eosinophils Percent Auto 3.6 % (0.0-7.0); Hematocrit 31.1 % (33.0-51.0); Immature Granulocytes Pct Auto 0.3 %; Lymphocytes Percent Auto 14.2 % (20-44); Mean Corpuscular HGB Conc 32 gm/dL (32-36); Mean Corpuscular Hemoglobin 27 pg (26-34); Mean Corpuscular Volume 85 fL (80-100); Monocytes Percent Auto 10.4 % (0.0-11.0); Platelet Count* 252 K/uL (140-440); RDW Coefficient of Variation % 15.7 % (11.5-15.5); Red Blood Count 3.66 m/uL (4.00-5.20); White Blood Count* 3.66 K/uL (4.50-11.00)
[2022-08-23 07:04] LABS: Chloride* 104 mmol/L (96-114); Sodium* 137 mmol/L (135-149)
[2022-08-23 07:05] LABS: Potassium* 3.1 mmol/L (3.6-5.1)
[2022-08-23 07:07] LABS: Creatinine* 0.5 mg/dL (0.5-1.5); Est. Creatinine Clearance* 50.47; Estimated Glomerular Filt Rate 104 ml/min
[2022-08-23 07:08] LABS: Blood Urea Nitrogen* 7 mg/dL (7-30); Calcium* 8.9 mg/dL (8.4-10.6); Carbon Dioxide* 29 mmol/L (20-32); Glucose* 107 mg/dL (60-115)
[2022-08-23 07:11] LABS: C Reactive Protein* 3.4 mg/dL (0.5-1.0)
[2022-08-23] MEDS: ISOSORBIDE DINITRATE 10 MG TABLET 5 MG PO ×3 (08:19→17:45)
[2022-08-23] MEDS: OMEPRAZOLE 20 MG CAPSULE DR PO (09:26)
[2022-08-23] MEDS: HYDROXYCHLOROQUINE 200 MG TABLET PO ×2 (09:26→20:55)
[2022-08-23] MEDS: cefTRIAXone 1 GM in 0.9 % SODIUM CHLORIDE Mini-bag 100 ML IVPB (09:26)
[2022-08-23] MEDS: ATORVASTATIN CALCIUM 40 MG TABLET PO (09:26)
[2022-08-23] MEDS: TAMSULOSIN HCL 0.4 MG CAPSULE PO (09:26)
[2022-08-23] MEDS: SODIUM CHLORIDE 0.9 % (FLUSH) 10 ML SYRINGE 5 ML IVF ×3 (09:42→20:59)
[2022-08-23] MEDS: HYDROmorphone 0.5 mg/0.5 ml inj 1 MG IVP (09:49)
[2022-08-23 10:01] LABS: C.Difficile Negative (Negative); CDIFFEPI 027 PRESUMPTIVE NEGATIVE (Negative)
[2022-08-23] MEDS: DULOXETINE 30 MG CAPSULE DR 120 MG PO (13:33)
[2022-08-23] MEDS: POTASSIUM CHLORIDE 10 MEQ CAPSULE ER 40 MEQ PO (13:33)
[2022-08-23] MEDS: BUSPIRONE 10 MG TABLET 15 MG PO ×2 (13:33→20:55)
[2022-08-23 13:59] LABS: Slide Review Reflex No
[2022-08-23 14:00] LABS: Slide Review Acceptable Review (Acceptable)
--- NOTE | 2022-08-23 15:00 | P.IMPN_ITS ---
Progress Note: A&P Assessment and plan (1) Sepsis with acute hypoxic respiratory failure: Problem details: On admission she was found to be hypotensive with altered level of consciousness high, hypoxia acute kidney injury and pneumonia. These have clinically improved overnight with her blood pressure improving. MRSA culture negative. Switch to ceftriaxone plus azithromycin. Status: Acute (2) Acute kidney injury: Problem details: Baseline creatinine is 0.7 with BUN of 13. Creatinine yesterday 2.4 with BUN of 40. Now close to baseline. JACK thought secondary to hypotension and sepsis. Status: Acute (3) Laceration of left upper arm: Problem details: Status post suturing. Now appears to bruised but otherwise healing well. Sutures out in about 10 days Status: Acute (4) Hypotension: Problem details: Due to sepsis and acute illness with nausea vomiting and poor oral intake. Hold blood pressure medication. Continue to monitor and treat Status: Acute (5) Acute hypokalemia: Problem details: Due to recent gastrointestinal illness with vomiting and anorexia. Replace and monitor . Continues hypokalemic. Continue replacement and monitoring. Status: Acute (6) Aspiration pneumonia: Problem details: RUL - swallowing evaluation showed mild pharyngeal dysphagia with occasional transient penetration of thin liquids and no aspiration 08/09/2021 - today's CT chest showed a fluid filled esophagus. I suspect this is least in part due to multiple sedating medications including tizanidine for muscle relaxation. Esophagram shows findings of achalasia. Patient should be upright for all feedings. She should never be supine in bed but should always have head of bed elevated to reduce aspiration risk Status: Acute (7) Chronic, continuous use of opioids: Problem details: Ongoing discussion about need to wean down opioids. These are almost certainly contributing to her overall decline in health with her disability, falling, weakness, hypoxia, sleep apnea, altered mental status, aspiration pneumonia. Currently am recommending that she not be self administering p.r.n. oxycodone as I think this is been a problem for her. I am going to increase her OxyContin to 30 mg every 8 hours and stop p.r.n. oxycodone Status: Acute (8) Physical deconditioning: Problem details: Today with fairly minimal activity she became quite weak lightheaded dyspneic and diaphoretic. Unclear what all all factors went into this. It was clear that she could not safely manage on her own. She nearly fell without staff helping her to bed. she was not hypotensive however. Not yet safe to go home. She needs more time sitting up in a chair and less time in bed. This may improve her tone Patient has very sedentary lifestyle and as a result has progressive deconditioning. From her history it sounds like her does most of the housework and physical activity for her. Status: Acute (9) Opioid withdrawal: Problem details: Stop p.r.n. oxycodone and continue scheduled OxyContin at 30 mg every 8 hours. Will assess whether this will resolve her withdrawal symptoms as well as manage her pain Status: Acute (10) Syncope: Problem details: Patient reported syncope at home causing her left arm injury when she fell. Here she has been having episodes where she if is profoundly weak and unable to stand without someone holding onto her. When these occur she does not have hypotension. She is noted to have hypertension with the episode yesterday. Echo is unremarkable. Status: Acute (11) Achalasia: Problem details: conservative management with upright position when eating and drinking. Change diet to liquids and soft foods. Outpatient follow-up. Status: Acute Plan Continue in-hospital to manage multiple medical problems as noted above. Anticipate discharge to home with . Possibly in the next 1-2 days. Time Spent With Patient Total time spent: Total time spent today is 40 minutes, 30 minutes in course care discussing with patient other providers ongoing evaluation management of opioid dependence, anxiety, achalasia and aspiration pneumonia. Subjective Date Seen: 08/23/22 Interval history: Patient seen in followup of hospitalization for fall with possible syncope, aspiration pneumonia, frailty. 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 This was suspected to be another problem with opioid withdrawal and did improve with hydrocodone. I did note that her antidepressants have been held in those have been resumed as antidepressant withdrawal could be contributing to this. Her vital signs have been normal. There was concern that she was having opioid wi thdrawal symptoms. She has been getting her OxyContin but has been taking very little of her oxycodone. Prior to admission her total daily dose of oxycodone and OxyContin was thought to be about 120 mg a day. At that time there was concern about overuse or misuse of this causing her sedation and falls. I reduced her p.r.n. oxycodone but she has asked for very little of it and I think as a result is now in opioid withdrawal. She did receive a dose of IV dilaudid and with this she had much improved symptoms. Resume antidepressants and anxiolytics. Exam Narrative: Exam Narrative: When I initially seen her she is hyperventilating and quite restless and agitated and tearful. She is reporting pain all over. After she receives a mg of Dilaudid IV she is calm and pleasant with normal breathing and reports her pain is well managed as well. Head is normal. Oropharynx with small airway. Respirations are clear to auscultation. Inspection of the back shows no obvious abnormalities. Palpation shows no obvious point tenderness. Cardiovascular: S1, S2, regular rate and rhythm. Abdomen is soft without tenderness or mass. She moves all 4 extremities well. Const: Vital Signs, click to edit/add: Vital Signs - 24 hr 08/22/22 16:00 08/22/22 16:00 08/22/22 16:00 Temperature Pulse Rate 89 Pulse Rate [Pulse Oximeter] 93 Pulse Rate [orthos tatic lying Left P ulse Oximeter] Pulse Rate [orthos tatic sitting Left Pulse Oximeter] Pulse Rate [orthos tatic standing Lef t Pulse Oximeter] Respiratory Rate 18 18 Blood Pressure [Ri ght Arm] Blood Pressure [or thostatic lying Ri ght Arm] Blood Pressure [or thostatic sitting Right Arm] Blood Pressure [or thostatic standing Right Arm] Pulse Oximetry 96 Oxygen Delivery Me thod Room Air Oxygen Flow Rate 08/22/22 16:00 08/22/22 18:20 08/22/22 18:20 Temperature 97.0 F L Pulse Rate Pulse Rate [Pulse Oximeter] 93 101 H Pulse Rate [orthos tatic lying Left P ulse Oximeter] 101 H Pulse Rate [orthos tatic sitting Left Pulse Oximeter] 99 Pulse Rate [orthos tatic standing Lef t Pulse Oximeter] 110 H Respiratory Rate 20 22 Blood Pressure [Ri ght Arm] 157/96 H 162/101 H Blood Pressure [or thostatic lying Ri ght Arm] 162/101 H Blood Pressure [or thostatic sitting Right Arm] 185/114 H Blood Pressure [or thostatic standing Right Arm] 168/118 H Pulse Oximetry 96 97 Oxygen Delivery Me thod Room Air Room Air Oxygen Flow Rate 08/22/22 19:00 08/22/22 23:00 08/22/22 23:00 Temperature 97.8 F 97.8 F Pulse Rate Pulse Rate [Pulse Oximeter] 99 94 94 Pulse Rate [orthos tatic lying Left P ulse Oximeter] Pulse Rate [orthos tatic sitting Left Pulse Oximeter] Pulse Rate [orthos tatic standing Lef t Pulse Oximeter] Respiratory Rate 18 18 18 Blood Pressure [Ri ght Arm] 139/94 H 129/99 H Blood Pressure [or thostatic lying Ri ght Arm] Blood Pressure [or thostatic sitting Right Arm] Blood Pressure [or thostatic standing Right Arm] Pulse Oximetry 96 92 Oxygen Delivery Me thod Room Air Room Air Oxygen Flow Rate 08/22/22 23:00 08/23/22 03:30 08/23/22 03:00 Temperature 97.9 F Pulse Rate 91 Pulse Rate [Pulse Oximeter] 88 Pulse Rate [orthos tatic lying Left P ulse Oximeter] Pulse Rate [orthos tatic sitting Left Pulse Oximeter] Pulse Rate [orthos tatic standing Lef t Pulse Oximeter] Respiratory Rate 18 Blood Pressure [Ri ght Arm] 149/77 H Blood Pressure [or thostatic lying Ri ght Arm] Blood Pressure [or thostatic sitting Right Arm] Blood Pressure [or thostatic standing Right Arm] Pulse Oximetry 96 94 Oxygen Delivery Me thod Room Air Room Air Oxygen Flow Rate 08/23/22 07:00 08/23/22 07:00 08/23/22 07:00 Temperature Pulse Rate 91 Pulse Rate [Pulse Oximeter] 98 Pulse Rate [orthos tatic lying Left P ulse Oximeter] Pulse Rate [orthos tatic sitting Left Pulse Oximeter] Pulse Rate [orthos tatic standing Lef t Pulse Oximeter] Respiratory Rate 20 20 Blood Pressure [Ri ght Arm] Blood Pressure [or thostatic lying Ri ght Arm] Blood Pressure [or thostatic sitting Right Arm] Blood Pressure [or thostatic standing Right Arm] Pulse Oximetry 95 Oxygen Delivery Me thod Room Air Oxygen Flow Rate 2 08/23/22 07:00 08/23/22 08:00 08/23/22 11:00 Temperature 97.9 F 97.9 F Pulse Rate Pulse Rate [Pulse Oximeter] 98 93 Pulse Rate [orthos tatic lying Left P ulse Oximeter] Pulse Rate [orthos tatic sitting Left Pulse Oximeter] Pulse Rate [orthos tatic standing Lef t Pulse Oximeter] Respiratory Rate 22 18 Blood Pressure [Ri ght Arm] 196/127 H 167/116 H Blood Pressure [or thostatic lying Ri ght Arm] Blood Pressure [or thostatic sitting Right Arm] Blood Pressure [or thostatic standing Right Arm] Pulse Oximetry 95 95 100 Oxygen Delivery Me thod Room Air Room Air Oxygen Flow Rate Documenting provider has reviewed patient's vital signs: yes Labs Labs: Laboratory Results - last 24 hr 08/22/22 08/23/22 08/23/22 17:19 06:23 06:23 WBC 3.66 L RBC 3.66 L Hgb 10.0 L Hct 31.1 L MCV 85 MCH 27 MCHC 32 RDW Coeff of Kaley 15.7 H Plt Count 252 Neut % (Auto) 71.0 Lymph % (Auto) 14.2 L [place] % (Auto) 10.4 Eos % (Auto) 3.6 Baso % (Auto) 0.5 Neut # (Auto) 2.60 Lymph # (Auto) 0.50 L [place] # (Auto) 0.40 Eos # (Auto) 0.10 Baso # (Auto) 0.00 Diff Slide Review Acceptable Review Sodium 137 Potassium 3.1 L Chloride 104 Carbon Dioxide 29 BUN 7 Creatinine 0.5 Estimated Creat Clear 50.47 Estimated GFR 104 Glucose 107 Calcium 8.9 C-Reactive Protein 3.4 H Stl C.difficile Tox PCR Negative St C. diff Tox Epid 027 PRESUMPTIVE NEGATIVE
[2022-08-23] MEDS: ONDANSETRON 2 MG/ML inj 4 MG IVP (15:24)
--- NOTE | 2022-08-23 18:31 | PC.NURSE ---
End of Shift: Patient cooperative and anxious. Patient SBA. Patient rates pain in back 8/10. Patient given scheduled pain med and given zophran and tylenol once. Patient also asked for ativan and grant writer explained that it is not ordered. Patient had 1 incontinent diarrhea in brief. Patient declined to eat due to nausea.
[2022-08-23] MEDS: PREGABALIN 100 MG CAPSULE 300 MG PO (21:05)
[2022-08-24] MEDS: OXYCODONE (CR) 10 MG TAB.ER.12H PO ×2 (00:35→09:55)
[2022-08-24 03:00] VITALS: BP 153/112; PULSE 91; RESP 18; TEMP 36.6; O2SAT 96
[2022-08-24] MEDS: ACETAMINOPHEN 325 MG TABLET 650 MG PO ×2 (06:24→12:49)
[2022-08-24] MEDS: LEVOTHYROXINE 75 MCG TABLET 150 MCG PO (06:25)
[2022-08-24 07:00] VITALS: BP 150/103; PULSE 131; RESP 18; TEMP 36.6; O2SAT 90; O2SAT 97
[2022-08-24 07:02] LABS: Basophils Percent Auto 0.5 % (0.0-3.0); Eosinophils Percent Auto 3.7 % (0.0-7.0); Hematocrit 36.7 % (33.0-51.0); Hemoglobin* 11.6 gm/dL (12.0-16.0); Immature Granulocytes Pct Auto 0.2 %; Lymphocytes Percent Auto 10.9 % (20-44); Mean Corpuscular HGB Conc 32 gm/dL (32-36); Mean Corpuscular Hemoglobin 27 pg (26-34); Mean Corpuscular Volume 86 fL (80-100); Monocytes Percent Auto 12.4 % (0.0-11.0); Neutrophils Percent Auto 72.3 % (42.0-72.0); Platelet Count* 282 K/uL (140-440); RDW Coefficient of Variation % 15.8 % (11.5-15.5); Red Blood Count 4.27 m/uL (4.00-5.20); White Blood Count* 4.03 K/uL (4.50-11.00)
[2022-08-24 07:05] LABS: Slide Review Reflex No
[2022-08-24 07:12] LABS: Chloride* 104 mmol/L (96-114); Potassium* 3.6 mmol/L (3.6-5.1); Sodium* 140 mmol/L (135-149)
[2022-08-24 07:14] LABS: Creatinine* 0.6 mg/dL (0.5-1.5); Estimated Glomerular Filt Rate 100 ml/min
[2022-08-24 07:15] LABS: Blood Urea Nitrogen* 8 mg/dL (7-30); Carbon Dioxide* 30 mmol/L (20-32); Glucose* 103 mg/dL (60-115)
--- NOTE | 2022-08-24 07:28 | PC.NURSE ---
Patient is alert and oriented x3, elevated BP, all others VSS. Pain managed with scheduled Oxycodone and PRN Tylenol. Pt is SBA with transfers, continent of bowel and bladder. Patient is stable, call light within reach.
[2022-08-24 07:40] VITALS: PULSE 101
[2022-08-24 08:00] VITALS: O2SAT 90
[2022-08-24] MEDS: PREGABALIN 100 MG CAPSULE 300 MG PO (09:55)
[2022-08-24] MEDS: HYDROXYCHLOROQUINE 200 MG TABLET PO (09:57)
[2022-08-24] MEDS: OMEPRAZOLE 20 MG CAPSULE DR PO (09:58)
[2022-08-24] MEDS: ASPIRIN EC 325 MG TABLET PO (09:58)
[2022-08-24] MEDS: TAMSULOSIN HCL 0.4 MG CAPSULE PO (09:58)
[2022-08-24] MEDS: BUSPIRONE 10 MG TABLET 15 MG PO (10:00)
[2022-08-24] MEDS: ATORVASTATIN CALCIUM 40 MG TABLET PO (10:00)
[2022-08-24] MEDS: DULOXETINE 30 MG CAPSULE DR 120 MG PO (10:01)
[2022-08-24] MEDS: ISOSORBIDE DINITRATE 10 MG TABLET 5 MG PO ×2 (10:03→12:53)
[2022-08-24] MEDS: METOPROLOL SUCCINATE (XL) 25 MG TAB PO (10:29)
--- NOTE | 2022-08-24 10:51 | PM.DS1 ---
DS: Providers Provider Date Seen: 08/24/22 Date of admission: 08/20/22 12:53 Primary care physician: Not a Local Provider Admitting Clinician: Chandrika Putnam MD Attending Physician on discharge: Chandrika Putnam MD Date of Discharge: 08/24/22 DS: Diagnosis Discharge Diagnosis (1) Sepsis with acute hypoxic respiratory failure: Status: Acute Problem details: On admission she was found to be hypotensive with decreased level of consciousness, hypoxia, acute kidney injury and pneumonia. Sepsis and hypoxic respiratory failure thought secondary to aspiration pneumonia. (2) Recurrent aspiration pneumonia: Status: Acute Problem details: Patient has recurrent episodes of aspiration pneumonia. On admission her esophagus was fluid-filled. Further evaluation showed she has achalasia. This is thought to be contributing to her aspiration risk. (3) Acute hypokalemia: Status: Resolved Problem details: Resolved with replacement (4) Shock: Status: Resolved Problem details: Due to sepsis with pneumonia (5) Laceration of left upper arm: Status: Acute Problem details: Status post suturing. Now appears to bruised but otherwise healing well. Sutures out between August 30 and September 01 (6) Acute kidney injury: Status: Acute Problem details: Baseline creatinine is 0.7 with BUN of 13. Creatinine yesterday 2.4 with BUN of 40. Now close to baseline. JACK thought secondary to hypotension and sepsis. (7) Chronic, continuous use of opioids: Status: Acute Problem details: Ongoing discussion about need to wean down opioids. These are almost certainly contributing to her overall decline in health with her disability, falling, weakness, hypoxia, sleep apnea, altered mental status, aspiration pneumonia. Currently am recommending that she not be self administering p.r.n. oxycodone as I think this is been a problem for her. I am going to increase her OxyContin to 30 mg every 8 hours and stop p.r.n. oxycodone. Her total daily oxycodone dose prior to admission was 120 mg. On discharge her total daily oxycodone does should be 90 mg. Consider long-term plan for taper or alternatively switched to Suboxone. She has been tolerating the reduction in her opioid dose. (8) Physical deconditioning: Status: Acute Problem details: Today with fairly minimal activity she became quite weak lightheaded dyspneic and diaphoretic. Unclear what all all factors went into this. It was clear that she could not safely manage on her own. She nearly fell without staff helping her to bed. she was not hypotensive however. Not yet safe to go home. She needs more time sitting up in a chair and less time in bed. This may improve her tone Patient has very sedentary lifestyle and as a result has progressive deconditioning. From her history it sounds like her does most of the housework and physical activity for her. (9) Achalasia: Status: Acute Problem details: conservative management with upright position when eating and drinking. Change diet to liquids and soft foods. Outpatient Gastroenterology follow-up. (10) Declining functional status: Status: Acute Problem details: Patient is having significant functional decline likely due to a combination of chronic opioid therapy and very sedentary lifestyle. Would benefit from PT and OT. 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 Had evaluation for inspire and she did not qualify. She has mild nocturnal hypoxia. Opioids are certainly making this worse (12) Sinus tachycardia: Status: Acute Problem details: She has had mild sinus tachycardia associated with mild elevation of her blood pressure in the last couple days. This was thought to be due to deconditioning. I did start her on metoprolol 25 mg daily to see if this would improve her exercise tolerance. This can be followed up on the outpatient basis. DS: Summary Hospital Course Hospital Course: Cyndi Mcnally is a 67 year old female with a very complicated past medical history who presented through the emergency department after a fall that resulted in a laceration to her left upper arm.? She was profoundly hypotensive for which she was started on a sepsis protocol in the emergency department.? She was given 2 L of IV fluids there and her blood pressures have normalized.? She tells me that she started feeling sick and dizzy a few days ago.? She felt like she had the flu.? She had nausea and also an emesis on and has not been able to eat or drink much since that time.? She denies fever.? She complains of abdominal pain especially in the left abdomen.? Today she was walking around in her bedroom when she suddenly felt dizzy and grabbed onto a dresser with her left hand when she blacked out and woke up on the floor with a laceration to her left upper inner arm.? This was sutured in the emergency department.? When she was brought into the emergency department, she recalls feeling nauseous, painful, cold and like she could not breathe.? She recalls that her blood pressure was very low at that time.? According to the ER record, her blood pressure was 73/34.? She complains that she is tired and having some trouble talking.? She does have a history of aphasia after a stroke many years ago.? She has not had any other focal numbness weakness or tingling recently.? She is on many sedating medications including very high dose opioids, both OxyContin and oxycodone.? She gives a variable history about how much she is taking.? She says she takes 6 tablets of 10 mg of oxycodone every day, but notes that she takes it every 4 hours while she is awake does not wake up in the middle of the night to take it.? She does not double up on any tablets.? When I asked if maybe she takes it more often than 4 hours, she said no.? She does get a bit confused at times giving history.? Her left from the emergency department and is not here to give history.? I noted that the multiple sedating medications that she is on likely contributed to her fall today and her overall tiredness.? I also noted that there was a note from an annual visit at [facility] recently that referenced a neurology visit with Dr. Montgomery who had recommended that she taper down on the sedating medications to improve her balance.? At this point she became defensive and said that she already had cut down on her OxyContin from 30mg 3 times a day to 20 mg 3 times a day.? She said she was not ready to cut down on anything and did not think it was causing her any problems. Patient did have some problems with anxiety during hospital stay. Initially there was concern this was opioid withdrawal but now it appears that this was more primary anxiety problem. Her anxiolytics and antidepressant medicines were held when she 1st was admitted due to altered mental status and hypotension. Since restarting antidepressants her anxiety has been much better. All the findings of septic shock and hypoxic respiratory failure of largely resolved though patient remains borderline hypoxic particularly at night. She is known to have sleep apnea but has not tolerated CPAP. She had evaluation for inspire and apparently did not meet criteria for this. She was found to have achalasia likely a contributing factor to her recurrent episodes of aspiration. Recommend outpatient Gastroenterology follow-up for management of this. Status at Discharge Functional status at discharge: uses cane/walker Overall status at discharge: patient is progressing back to baseline Time Spent with Patient Time attestation: Total time spent providing and/or coordinating discharge services: Time spent: Greater than 30 minutes Exam Narrative: Exam Narrative: She is alert and appears in no distress. This morning she is not anxious. She is alert and oriented to her circumstances. Respirations are clear to auscultation. Cardiovascular: S1, S2, regular rate and rhythm. Abdomen: Bowel sounds active. Abdomen is soft without tenderness or mass. Const: Vital Signs, click to edit/add: Vital Signs - 24 hr 08/23/22 11:00 08/23/22 15:00 08/23/22 15:00 Temperature 97.9 F 98.5 F Pulse Rate Pulse Rate [Pulse Oximeter] 93 111 H 111 H Respiratory Rate 18 16 16 Blood Pressure [Ri ght Arm] 167/116 H 162/109 H Pulse Oximetry 100 95 Oxygen Delivery Me thod Room Air Room Air Oxygen Flow Rate 08/23/22 15:00 08/23/22 15:00 08/23/22 19:00 Temperature 98 F Pulse Rate 104 H Pulse Rate [Pulse Oximeter] 106 H Respiratory Rate 16 20 Blood Pressure [Ri ght Arm] 154/104 H Pulse Oximetry 95 94 Oxygen Delivery Me thod Room Air Nasal Cannula Oxygen Flow Rate 1 08/23/22 23:00 08/23/22 23:00 08/23/22 23:00 Temperature 97.9 F Pulse Rate Pulse Rate [Pulse Oximeter] 106 H 100 Respiratory Rate 20 18 Blood Pressure [Ri ght Arm] 181/115 H Pulse Oximetry 98 95 Oxygen Delivery Me thod Room Air Room Air Oxygen Flow Rate 08/24/22 03:00 Temperature 97.9 F Pulse Rate Pulse Rate [Pulse Oximeter] 91 Respiratory Rate 18 Blood Pressure [Ri ght Arm] 153/112 H Pulse Oximetry 96 Oxygen Delivery Me thod High Flow Nasal Ca nnula Oxygen Flow Rate 1 Documenting provider has reviewed patient's vital signs: yes DS: Data Data Completed and Pending Labs on day of discharge: Labs from last 24 hours 08/24/22 08/24/22 08/23/22 06:39 06:39 06:23 WBC 4.03 L RBC 4.27 Hgb 11.6 L Hct 36.7 MCV 86 MCH 27 MCHC 32 RDW Coeff of Kaley 15.8 H Plt Count 282 Neut % (Auto) 72.3 H Lymph % (Auto) 10.9 L [place] % (Auto) 12.4 H Eos % (Auto) 3.7 Baso % (Auto) 0.5 Neut # (Auto) 2.90 Lymph # (Auto) 0.40 L [place] # (Auto) 0.50 Eos # (Auto) 0.10 Baso # (Auto) 0.00 Diff Slide Review Acceptable Review Sodium 140 Potassium 3.6 Chloride 104 Carbon Dioxide 30 BUN 8 Creatinine 0.6 Estimated Creat Clear 44.50 Estimated GFR 100 Glucose 103 Calcium 9.0 C-Reactive Protein 2.0 H Preliminary micro results at discharge 08/19/22 20:50 Blood Culture - Preliminary Blood NO GROWTH AFTER 96 HOURS 08/21/22 17:33 Blood Culture - Preliminary Blood NO GROWTH AFTER [address] Chest/Ab/Pelvis: My impression: [place] [id number] Diagnostic Imaging Report Patient: Cyndi Mcnally MR#: [id number] : 1955 Acct:[id number] Loc: ED Service Date: 08/19/[address]: Ordering Physician: Lul Cox M.D. Date of Service: 08/19/22 Procedure(s): CT chest abdomen pelv wo con Accession Number(s): [id number] cc: Provider,Not a Local ; Lul Cox M.D.~ For Patients:? As a result of the Century Cures Act, medical imaging exams and procedure reports are released immediately into your electronic medical record.? You may view this report before your referring provider.? If you have questions, please contact your health care provider. INDICATION: Hypotension, abdominal pain, recent falls.. TECHNIQUE: CT chest, abdomen and pelvis acquired without contrast. COMPARISON: None. FINDINGS: CHEST: Cardiovascular structures: Heart size is normal. Thoracic aorta is normal in caliber. Main pulmonary artery is enlarged measuring up to 34 millimeters in diameter, which can be seen in setting of pulmonary hypertension. ? Mediastinum and jose luis: No mass or adenopathy. Hiatal hernia. Fluid-filled esophagus, aspiration risk. Lungs and pleura: Nodular ground-glass opacities are identified in the left lower lobe and lingula. Atelectasis versus scarring in the right lower lobe and right middle lobe. Punctate centrilobular nodular opacities in the right lower lobe may reflect infection, inflammation. Chest wall and axilla: No mass or adenopathy.? Bones: No suspicious bone lesions.? Unremarkable for age.? ABDOMEN AND PELVIS: Liver: Unremarkable.? Gallbladder and bile ducts: Absent. No significant intra or extrahepatic biliary ductal dilatation. Pancreas: Unremarkable.? Spleen: Unremarkable.? Adrenal glands: Unremarkable.? Kidneys: Unremarkable.? GI tract: Moderate hiatal hernia. Appendix is not well visualized. No bowel obstruction. Vascular structures: Abdominal aorta is normal in caliber.? Lymph nodes: Unremarkable.? Miscellaneous: Unremarkable.? No free air or significant free fluid.? Pelvic Organs: Unremarkable.? Bones: Lumbar fusion changes. Multilevel degenerative changes in the spine. IMPRESSION: Nodular ground-glass opacities in the left lower lobe and lingula, may be related to aspiration/infection. In addition, there are punctate centrilobular nodular opacities in the right lower lobe which may reflect aspiration, bronchiolitis. Moderate hiatal hernia. Fluid-filled esophagus, aspiration risk. No acute intra-abdominal process identified. Esophagram: Radiologist's impression: Single water-soluble contrast esophagram performed with Gastrografin. Fluoroscopy time 1 minute 11 seconds. Indication: Poor esophageal motility.? Recurrent aspiration. Comparison: 06/10/2020 Findings: Narrowing of the distal esophagus is present measuring 8 millimeters with a transient shelf-like area and narrow column of contrast. Failure of passage of the barium tablet through the area. Persistent hiatal hernia is present measuring approximately 3.5 cm. Spontaneous reflux and decreased esophageal motility. No aspiration. The mid and distal esophagus is distended above the area of narrowing. Impression: Mild achalasia is present with decreased esophageal motility and sliding hiatal hernia. Discharge Plan Discharge Disposition: Home, Self-Care Date of Admission: 08/20/22 12:53 Attending Provider on Discharge: Marito Armas Primary Care Provider: Provider,Not a Local Condition: Improved Anticipated Discharge Date/Time: 08/24/22 10:00 Discharge Medications: New oxycodone [OxyContin] 10 mg tablet,oral only,ext.rel.12 hr 10 mg PO TID Qty: 30 0RF metoprolol succinate 25 mg capsule,sprinkle,ER 24hr 25 mg PO DAILY Qty: 30 2RF Continued aspirin 325 mg capsule 325 mg PO DAILY atorvastatin 40 mg tablet 40 mg PO DAILY Label Comments: TAKE 1 TABLET BY MOUTH EVERY DAY pilocarpine HCl 5 mg tablet 5 mg PO TID Label Comments: TAKE 1 TABLET BY MOUTH THREE TIMES A DAY tizanidine 4 mg tablet 4 - 8 mg PO Q8H PRN (Reason: muscle spasticity) Label Comments: Take 1-2 tablet by mouth every six to eight hours as needed for muscle spasms hydroxyzine HCl 50 mg tablet 50 - 100 mg PO Q6H PRN Label Comments: TAKE 1-2 TABLETS (50-100 MG) BY MOUTH EVERY 6 HOURS IF NEEDED FOR ITCHING OR OTHER tamsulosin 0.4 mg capsule 0.4 mg PO DAILY Label Comments: TAKE 1 CAPSULE BY MOUTH ONCE DAILY AFTER A MEAL. mirtazapine 30 mg tablet 30 mg PO HS Label Comments: TAKE 1 TABLET BY MOUTH AT BEDTIME. levothyroxine 150 mcg tablet 150 mcg PO DAILY Label Comments: TAKE 1 TABLET (150 MCG) BY MOUTH BEFORE BREAKFAST. losartan 25 mg tablet 25 mg PO DAILY Label Comments: TAKE 1 TABLET BY MOUTH EVERY DAY omeprazole 20 mg capsule,delayed release(DR/EC) 20 mg PO DAILY Label Comments: TAKE 1 CAPSULE (20 MG) BY MOUTH ONCE DAILY BEFORE A MEAL. furosemide 20 mg tablet 20 mg PO DAILY Label Comments: TAKE 1 TABLET (20 MG) BY MOUTH EVERY MORNING. IF NEEDED. MAY TAKE IF WEIGHT INCREASES BY 3# OR MORE hydroxychloroquine 200 mg tablet 200 mg PO BID Label Comments: TAKE 1 TABLET BY MOUTH TWICE A DAY albuterol sulfate 90 mcg/actuation HFA aerosol inhaler 1 - 2 puff INHALATION Q4H PRN Label Comments: INHALE 1-2 PUFFS BY MOUTH EVERY 4 HOURS IF NEEDED. ketoconazole 2 % cream 1 applic TOPICAL BID Label Comments: APPLY TO AFFECTED AREA TWICE A DAY buspirone 15 mg tablet 15 mg PO BID Label Comments: TAKE 1 TABLET BY MOUTH TWICE A DAY duloxetine 60 mg capsule,delayed release(DR/EC) 120 mg PO DAILY Label Comments: TAKE 2 CAPSULES (120MG) BY MOUTH ONCE DAILY. pregabalin 300 mg capsule 300 mg PO BID Label Comments: TAKE 1 CAPSULE BY MOUTH TWICE A DAY oxycodone [OxyContin] 20 mg tablet,oral only,ext.rel.12 hr 20 mg PO TID Label Comments: TAKE 1 TABLET BY MOUTH THREE TIMES A DAY Discontinued oxycodone 10 mg tablet 10 mg PO Q4H Label Comments: 6 TIMES DAILY Discharge Orders: Discharge Order (Routine); Ordered 08/24/22 Ordered By: Marito Armas Patient Education: Metoprolol (By mouth), Oxycodone, Rapid Release (By mouth), Aspiration Pneumonia (DC) Additional Instructions: Due to your weakness and use of oxycodone we are concerned that you are not safe to be driving a car. 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 Talk to your doctor about this if you are interested in continuing to drive. Activity Level: Use Walker Discharge Diet: Other Diet Detail: Due to achalasia, your esophagus does not work properly. You should be sitting upright during and after your meal. You should eat soft foods that are easy to swallow. Follow Up Appointments: Armando Rubio PA-C [Referring] - 08/31/22 12:30 pm (Follow-up with your provider in 6-7 days. Review pain management, medications and get your sutures removed at that time. [facility] AUGUST 31 [phone]) Provider,Not a Local [Primary Care Provider] - Forms: [id number] Info Instructions Discharge Comments: Recommendations: Further evaluation and treatment of achalasia [employer] Operator safety evaluation Ongoing review of opioids. Opioids likely contribute to your fall and injury, low oxygen levels, weakness and poor balance. Outpatient physical therapy
--- NOTE | 2022-08-24 15:24 | PC.NURSE ---
shift note: pt had elevated BPthis a.m 150/103 with HR 100-131. Dr. Armas notified and Metoprolol ordered. Pt denied MEDLEY or sob with abnormal vss. Pt rating chronic lower back pain 7-02/08. pt medicated with prn tylenol and scheduled opioids. LS dim bibasilar. pt has wet sounding cough and was producing yellow thick phlegm. Pt states lt breast area painful with deep breaths. Pt up to bathroom with sba/walker. IV dc'd to lt FA and Lt hand intact. Pt has intact stitches to lt upper bicept and there's bruising around site. Reviewed dc instructions with pt and her spouse. Questions addressed. Written RX for oxycodone sent with pt at [facility]. Belongings checked and sent with pt at [facility].
== END 2022-08-24 14:15 | disposition home or self-care (01) | DRG 871 ==
LOC: ED 21:39 → MEDSURG 23:46
PROVIDERS: Family Medicine; Admitting Provider Family Medicine; Emergency Provider Family Medicine; Visit Provider Family Medicine
DX: A41.9 Sepsis, unspecified organism (principal); J69.0 Pneumonitis due to inhalation of food and vomit; J96.01 Acute respiratory failure with hypoxia; R65.21 Severe sepsis with septic shock; N17.9 Acute kidney failure, unspecified; F11.23 Opioid dependence with withdrawal; S41.112A Laceration without foreign body of left upper arm, initial encounter; E87.6 Hypokalemia; R55 Syncope and collapse; K22.0 Achalasia of cardia; W19.XXXA Unspecified fall, initial encounter; I69.320 Aphasia following cerebral infarction; J44.9 Chronic obstructive pulmonary disease, unspecified; M21.379 Foot drop, unspecified foot; R01.1 Cardiac murmur, unspecified; M51.36 Other intervertebral disc degeneration, lumbar region; R13.13 Dysphagia, pharyngeal phase; F41.8 Other specified anxiety disorders; E78.5 Hyperlipidemia, unspecified; E03.9 Hypothyroidism, unspecified; Z87.891 Personal history of nicotine dependence; Y92.003 Bedroom of unspecified non-institutional (private) residence as the place of occurrence of the external cause
CPT/HCPCS: 36415; 71250; 74176; 74220; 80048; 80076; 81001; 81003; 81015; 83605; 83690; 83735; 84145; 84443; 84484; 85025; 85610; 86140; 86850; 86900; 86901; 87040; 87081; 87086; 87493; 87502; 87634; 87635; 93005; 93306; 94761; 97116; 97161; 97165; 97530; 97535; 99285; 99291; 99292; G0378; A9270; J0696; J1170; J2405; J2543; J3370; J3475; J3480; J7030; J7050; J7120; Q9963

== ENCOUNTER 2022-09-08 18:38 | Inpatient (IN) | payer MEDICARE, SELFPAY ==
[2022-09-08] VITALS (46 sets, daily range): BP systolic 69–131; BP diastolic 25–85; PULSE 86–110; RESP 22; TEMP 35.7; O2SAT 86–100; BMI 33.9
--- NOTE | 2022-09-08 18:50 | CRLHL7_ITS ---
For Patients: As a result of the Century Cures Act, medical imaging exams and procedure reports are released immediately into your electronic medical record. You may view this report before your referring provider. If you have questions, please contact your health care provider. Indication: Hypoxia Technique: Chest 1 view Comparison: December 28, 2021 Findings/Impression: Stable cardiomegaly. Normal pulmonary vasculature. Linear scarring or atelectasis at the right lung base. Possible small right pleural effusion. No focal infiltrate or pneumothorax. No acute osseous abnormality. Dictated by Erika Choi MD @ 09/08/2022 7:50:25 PM (Electronically Signed)
[2022-09-08] MEDS: 0.9 % SODIUM CHLORIDE 1000 ml 1,000 ML 6000 ML IV (18:55)
--- NOTE | 2022-09-08 18:56 | ED_ITS ---
HPI - General Adult General Chief complaint: GI Bleed Stated complaint: Hypotesion, Black tarry stools Time Seen by Provider: 09/08/22 18:48 History of Present Illness HPI narrative: 67-year-old woman presenting to the emergency department via [facility] after they were called by patient for increasing weakness and him being unable to care for her, help her about. Blood sugar on scene a believe was 130s. She was noted to be blue periorally and is initiated on oxygen after unable to get oximetry readings. Blood pressure recorded I believe around 60/40 by EMS. Arrives [facility]. This is somewhat of a similar presentation when admitted 3rd week of August or so to this facility with aspiration pneumonia and sepsis. Also thought to be somewhat narcotized and needing to be weaned down on chronic opiates. On review of records has extensive and complicated past medical. Sherri reports developing diarrhea 2-3 days ago along with vomiting; the diarrhea especially has become more copious. was complaining to EMS that it is black and quite sticky and difficult to clean up. She denies anticoagulation. Records show aspirin. Cyndi is reporting some abdominal pain. No fevers. She is short of breath, or at least very fatigued. Has been vomiting as well. Does have a history of sleep apnea and apparently has not tolerated CPAP. Related Data Home Medications Medication Instructions Recorded Confirmed albuterol sulfate 90 mcg/actuation 1 - 2 puff inhalation Q4H PRN 12/28/21 08/20/22 aerosol inhaler atorvastatin 40 mg tablet 40 mg PO DAILY 12/28/21 08/20/22 buspirone 15 mg tablet 15 mg PO BID 12/28/21 08/20/22 duloxetine 60 mg capsule,delayed 120 mg PO DAILY 12/28/21 08/20/22 release furosemide 20 mg tablet 20 mg PO DAILY 12/28/21 08/20/22 hydroxychloroquine 200 mg tablet 200 mg PO BID 12/28/21 08/20/22 hydroxyzine HCl 50 mg tablet 50 - 100 mg PO Q6H PRN 12/28/21 08/20/22 ketoconazole 2 % topical cream 1 applic topical BID 12/28/21 08/20/22 levothyroxine 150 mcg tablet 150 mcg PO DAILY 12/28/21 08/20/22 losartan 25 mg tablet 25 mg PO DAILY 12/28/21 08/20/22 mirtazapine 30 mg tablet 30 mg PO HS 12/28/21 08/20/22 omeprazole 20 mg capsule,delayed 20 mg PO DAILY 12/28/21 08/20/22 release oxycodone 20 mg tablet,crush 20 mg PO TID 12/28/21 08/20/22 resistant,extended release 12 hr (OxyContin) pilocarpine HCl 5 mg tablet 5 mg PO TID 12/28/21 08/20/22 pregabalin 300 mg capsule 300 mg PO BID 12/28/21 08/20/22 tamsulosin 0.4 mg capsule 0.4 mg PO DAILY 12/28/21 08/20/22 tizanidine 4 mg tablet 4 - 8 mg PO Q8H PRN muscle 12/28/21 08/20/22 spasticity aspirin 325 mg capsule 325 mg PO DAILY 08/20/22 08/20/22 Previous Rx's Medication Instructions Recorded metoprolol succinate 25 mg capsule 25 mg PO DAILY #30 ea 08/24/22 sprinkle, ext. release 24 hr oxycodone 10 mg tablet,crush 10 mg PO TID #30 tabs 08/24/22 resistant,extended release 12 hr (OxyContin) Allergies Allergy/AdvReac Type Severity Reaction Status Date / Time Sulfa (Sulfonamide Allergy Intermediate Rash Verified 12/28/21 17:24 Antibiotics) preservative Allergy Uncoded 12/28/21 17:24 Review of Systems Status of ROS: Reports: 10 or more systems reviewed and unremarkable except as noted in History and below [facility] Medical History Achalasia Anemia Anxiety with depression Aphasia as late effect of cerebrovascular accident Aspiration pneumonia Carpal tunnel syndrome of right wrist Cervicalgia Chronic pain Chronic, continuous use of opioids Colonic stricture Consolidation of right upper lobe of lung COPD (chronic obstructive pulmonary disease) Crohn disease CVA (cerebral vascular accident) De Quervain's syndrome (tenosynovitis) Declining functional status Degeneration of lumbar or lumbosacral intervertebral disc Depression Displacement of lumbar intervertebral disc without myelopathy Elevated ferritin Empyema lung Equinus contracture of left ankle Facial basal cell cancer (~2005) Fatigue Foot drop H/O echocardiogram Hemoptysis Hiatal hernia Hyperlipemia Hypotension Hypothyroid Impairment of balance Interstitial lung disease Migraine Myocardial infarction Obesity Physical deconditioning Picking own skin Primary osteoarthritis of right knee Pulmonary nodule Sinus tachycardia Sjogrens syndrome Sleep apnea Sleep stage dysfunction Syncope Synovial cyst of popliteal space Trigger finger of right hand Surgical History H/O colonoscopy H/O foot surgery (~1995) H/O lumbar discectomy (~2009) H/O meniscectomy of right knee (~2008) H/O nephrolithotomy with removal of calculi (~1989) H/O vaginal hysterectomy History of facial surgery History of total right knee replacement (TKR) (10/13/15) S/P breast lumpectomy (~1987) S/P hardware removal (~2012) S/P small bowel resection (~2012) Status post cholecystectomy (~1996) Family History Other Alcohol use disorder Breast cancer High blood pressure Pancreatic cancer Social History Narrative: Full code. Lives with . Denies tobacco use, quit 5 years ago, smoked a quarter of a pack for about 20 years off and on. Denies alcohol use. Denies recreational drug use. Smoking Status: Unknown if ever smoked How often do you have a drink containing alcohol: never AUDIT-C Alcohol total score: 0 Non-prescribed substance use: denies use Caffeine: Yes (Pop soda) service: No Exam Narrative: Exam Narrative: Arrives on oxygen. She is clearly fatigued. Alerts as we manipulate her from cart to cart. I would say GCS of 14 there. Transition to a non-rebreather able to oxygenating at 100 %. Has an IV in the left arm. Reinitiating a 2nd. Initial blood pressure of 114/71. Cranial nerves 2-12 look to be intact. Pupils are equal. Head looks to be atraumatic. Skin is rather pale, warm. She has yellow-brown staining of fecal matter over her hands and legs. Wearing attends. Lungs with decreased breath sounds but are diffuse; crepitus is present in the right greater than left base. Oropharynx is moist. Edentulous upper. Pegs inserted in lower jaw. Mucous membranes are quite pale. The lower lip I can appreciate what looks to be cyanosis that almost appears as though it is irregular more consistent with superficial venous prominence. Heart is in an elevated rate. Appears to be regular rhythm. Abdomen with bowel sounds present. Is obese. She is moderately tender diffusely in the lower half of the abdomen. Lower extremities sustaining as noted above. Look to have evidence of poor perfusion. They are warm though. Reddened on some of the toes but not consistent with a cellulitis. Is missing some of her toenails. The left great toe is also absent consistent with surgical amputation. Const: Vital Signs, click to edit/add: Vital Signs - 24 hr 09/08/22 18:49 09/08/22 18:49 09/08/22 19:07 Temperature 96.2 F L Pulse Rate [Pulse Oximeter] 97 Respiratory Rate 22 Blood Pressure [Le ft Forearm] 114/71 Pulse Oximetry 100 100 100 Oxygen Delivery Me thod OxyMask OxyMask Oxygen Flow Rate 2 3 Documenting provider has reviewed patient's vital signs: yes Course Vital Signs Vital signs: Initial Vital Signs Temperature 96.2 F L 09/08/22 18:49 Temperature Source Temporal Artery Scan 09/08/22 18:49 Pulse Rate 97 09/08/22 18:49 Respiratory Rate 22 09/08/22 18:49 Blood Pressure 114/71 09/08/22 18:49 Blood Pressure Mean 85 09/08/22 18:49 Pulse Oximetry 100 09/08/22 18:49 Oxygen Delivery Method 09/08/22 18:49 Oxygen Flow Rate 2 09/08/22 18:49 Vital Signs Temperature 96.2 F L 09/08/22 18:49 Pulse Rate 97 09/08/22 18:49 Respiratory Rate 22 09/08/22 18:49 Blood Pressure 114/71 09/08/22 18:49 Pulse Oximetry 100 09/08/22 18:49 Oxygen Delivery Method 09/08/22 18:49 Oxygen Flow Rate 2 09/08/22 18:49 Temperature 96.2 F L 09/08/22 18:49 Pulse Rate 97 09/08/22 18:49 Respiratory Rate 22 09/08/22 18:49 Blood Pressure 114/71 09/08/22 18:49 Pulse Oximetry 100 09/08/22 19:07 Oxygen Delivery Method 09/08/22 19:07 Oxygen Flow Rate 3 09/08/22 19:07 Medical Decision Making MDM Narrative Medical decision making narrative: Transition to non-rebreather. Respiratory therapy assisting. Able to oxygenating 100%. Certainly concern of sepsis again. Hypotensive unclear etiology possibly sepsis or fluid loss. May have significant GI bleed. Will be type and screening initially. Will place another IV. Bolusing normal saline with anticipated transition to LR. On reassessment continues to alert to command but does drift off. Tends to jerk her upper extremities at these times. Blood pressure has softened again. Recycling. One-view chest x-ray reviewed by me shows some cardiomegaly. I do not appreciate any infiltrate at this time. Radiology over-read noting some atelectasis consistent with exam in the right lower lung as well as a small pleural effusion. Some labs returned with CBC showing white count is over 14,000. Her lactate is elevated at 3.7. Hemoglobin is possibly contraction-affected but higher than discharge at 12.4. Creatinine is increased to 3.4. Rather elevated CRP. Nursing the swab for stool Hemoccult which does seem to have a blue tinge to it. Will need to collect another. Still pending 2nd set of blood cultures; anticipating initiating IV antibiotics. 2019 spoken with our hospitalist anticipating admission but will be imaging abdomen and pelvis at this point. Due to increased creatinine will be noncontrast. Concern of IV access as well. 2023 ordered for Zosyn and vanco Suspected prolapse making urine catheterization difficult. Will need to reassess with repeat bladder scans as hydration efforts continue. Will need to quantify urine out. 2032 handing off at change of shift. Medical Records Medical records reviewed: Yes I reviewed the patient's medical records Lab Data Lab results reviewed: Yes I reviewed the patient's lab results Labs: Lab Results 09/08/22 09/08/22 09/08/22 Range/Units 18:50 18:50 18:50 WBC 14.84 H (4.50-11.00) K/uL RBC 4.57 (4.00-5.20) m/uL Hgb 12.4 (12.0-16.0) gm/dL Hct 38.8 (33.0-51.0) % MCV 85 (80-100) fL MCH 27 (26-34) pg MCHC 32 (32-36) gm/dL RDW Coeff of Kaley 14.9 (11.5-15.5) % Plt Count 287 (140-440) K/uL Neut % (Auto) 94.4 H (42.0-72.0) % Lymph % (Auto) 1.2 L (20-44) % [place] % (Auto) 3.2 (0.0-11.0) % Eos % (Auto) 0.0 (0.0-7.0) % Baso % (Auto) 0.1 (0.0-3.0) % Neut # (Auto) 14.00 H (1.7-7.0) K/uL Lymph # (Auto) 0.20 L (0.90-2.90) K/uL [place] # (Auto) 0.50 (0.00-0.90) K/UL Eos # (Auto) 0.00 (0.00-0.50) K/uL Baso # (Auto) 0.00 (0.00-0.30) K/uL INR 0.97 (0.91-1.10) APTT 20 L (23-33) Seconds VBG pH (7.32-7.43) VBG pCO2 (40-50) mmHG VBG pO2 (25-47) mmHG VBG HCO3 (21-28) mmol/L Sodium (135-149) mmol/L Potassium (3.6-5.1) mmol/L Chloride (96-114) mmol/L Carbon Dioxide (20-32) mmol/L BUN (7-30) mg/dL Creatinine (0.5-1.5) mg/dL Estimated Creat Clear Estimated GFR ml/min Glucose (60-115) mg/dL Calcium (8.4-10.6) mg/dL Total Bilirubin (0.1-1.5) mg/dL Direct Bilirubin (0.0-0.5) mg/dL AST (12-35) U/L ALT (4-35) U/L Alkaline Phosphatase (40-150) U/L Ammonia (13.1-30.0) umol/L Lactate Baseline 3.7 H (0.5-1.9) mmol/L C-Reactive Protein (0.5-1.0) mg/dL Total Protein (6.0-8.3) g/dL Albumin (3.3-5.0) g/dL Procalcitonin (<0.50) ng/mL Ethyl Alcohol (0.01-0.03) % SARS-CoV-2 (PCR) (Negative) Influenza Type A (PCR) (Negative) Influenza Type B (PCR) (Negative) 09/08/22 09/08/22 09/08/22 Range/Units 18:50 18:50 18:51 WBC (4.50-11.00) K/uL RBC (4.00-5.20) m/uL Hgb (12.0-16.0) gm/dL Hct (33.0-51.0) % MCV (80-100) fL MCH (26-34) pg MCHC (32-36) gm/dL RDW Coeff of Kaley (11.5-15.5) % Plt Count (140-440) K/uL Neut % (Auto) (42.0-72.0) % Lymph % (Auto) (20-44) % [place] % (Auto) (0.0-11.0) % Eos % (Auto) (0.0-7.0) % Baso % (Auto) (0.0-3.0) % Neut # (Auto) (1.7-7.0) K/uL Lymph # (Auto) (0.90-2.90) K/uL [place] # (Auto) (0.00-0.90) K/UL Eos # (Auto) (0.00-0.50) K/uL Baso # (Auto) (0.00-0.30) K/uL INR (0.91-1.10) APTT (23-33) Seconds VBG pH 7.285 L (7.32-7.43) VBG pCO2 50 (40-50) mmHG VBG pO2 29.4 (25-47) mmHG VBG HCO3 24 (21-28) mmol/L Sodium 135 (135-149) mmol/L Potassium 3.4 L (3.6-5.1) mmol/L Chloride 99 (96-114) mmol/L Carbon Dioxide 22 (20-32) mmol/L BUN 29 (7-30) mg/dL Creatinine 3.4 H (0.5-1.5) mg/dL Estimated Creat Clear 14.84 Estimated GFR 14 ml/min Glucose 127 H (60-115) mg/dL Calcium 9.2 (8.4-10.6) mg/dL Total Bilirubin 0.5 (0.1-1.5) mg/dL Direct Bilirubin 0.4 (0.0-0.5) mg/dL AST 164 H (12-35) U/L ALT 31 (4-35) U/L Alkaline Phosphatase 111 (40-150) U/L Ammonia (13.1-30.0) umol/L Lactate Baseline (0.5-1.9) mmol/L C-Reactive Protein 14.9 H (0.5-1.0) mg/dL Total Protein 7.6 (6.0-8.3) g/dL Albumin 4.3 (3.3-5.0) g/dL Procalcitonin 0.83 H (<0.50) ng/mL Ethyl Alcohol < 0.01 L (0.01-0.03) % SARS-CoV-2 (PCR) Negative SARS-CoV-2 (Negative) Influenza Type A (PCR) Negative PCR FLU A (Negative) Influenza Type B (PCR) Negative PCR FLU B (Negative) 09/08/22 Range/Units 18:55 WBC (4.50-11.00) K/uL RBC (4.00-5.20) m/uL Hgb (12.0-16.0) gm/dL Hct (33.0-51.0) % MCV (80-100) fL MCH (26-34) pg MCHC (32-36) gm/dL RDW Coeff of Kaley (11.5-15.5) % Plt Count (140-440) K/uL Neut % (Auto) (42.0-72.0) % Lymph % (Auto) (20-44) % [place] % (Auto) (0.0-11.0) % Eos % (Auto) (0.0-7.0) % Baso % (Auto) (0.0-3.0) % Neut # (Auto) (1.7-7.0) K/uL Lymph # (Auto) (0.90-2.90) K/uL [place] # (Auto) (0.00-0.90) K/UL Eos # (Auto) (0.00-0.50) K/uL Baso # (Auto) (0.00-0.30) K/uL INR (0.91-1.10) APTT (23-33) Seconds VBG pH (7.32-7.43) VBG pCO2 (40-50) mmHG VBG pO2 (25-47) mmHG VBG HCO3 (21-28) mmol/L Sodium (135-149) mmol/L Potassium (3.6-5.1) mmol/L Chloride (96-114) mmol/L Carbon Dioxide (20-32) mmol/L BUN (7-30) mg/dL Creatinine (0.5-1.5) mg/dL Estimated Creat Clear Estimated GFR ml/min Glucose (60-115) mg/dL Calcium (8.4-10.6) mg/dL Total Bilirubin (0.1-1.5) mg/dL Direct Bilirubin (0.0-0.5) mg/dL AST (12-35) U/L ALT (4-35) U/L Alkaline Phosphatase (40-150) U/L Ammonia < 9.0 L (13.1-30.0) umol/L Lactate Baseline (0.5-1.9) mmol/L C-Reactive Protein (0.5-1.0) mg/dL Total Protein (6.0-8.3) g/dL Albumin (3.3-5.0) g/dL Procalcitonin (<0.50) ng/mL Ethyl Alcohol (0.01-0.03) % SARS-CoV-2 (PCR) (Negative) Influenza Type A (PCR) (Negative) Influenza Type B (PCR) (Negative) ECG Data Attestation: I personally reviewed and interpreted this ECG as follows: (EKG reviewed by me shows a normal sinus rate of 97) Critical Care Time Critical Care Time Critical Care Time: Yes Attestation: The patient required my highest level preparedness to intervene emergently and I personally spent this critical care time directly and personally managing the patient. This critical care time included: Obtaining a history; Examining the patient; Pulse oximetry; Ordering and reviewing of studies; Arranging urgent treatment with development of a management plan; Evaluation of patients response to treatment; Frequent reassessment discussions with other providers. This critical care time was performed to assess and manage the high probability of imminent life-threatening deterioration that could result in multiorgan failure. It was exclusive of separate billable procedures and treating other patients and teaching time. Total Critical Care Time in Minutes: 70 Discharge Plan Discharge Clinical Impression: Sepsis, Acute kidney injury, Dehydration, Vomiting and diarrhea, Altered mental status Prescriptions: No Action aspirin 325 mg capsule 325 mg PO DAILY oxycodone [OxyContin] 10 mg tablet,oral only,ext.rel.12 hr 10 mg PO TID Qty: 30 0RF metoprolol succinate 25 mg capsule,sprinkle,ER 24hr 25 mg PO DAILY Qty: 30 2RF atorvastatin 40 mg tablet 40 mg PO DAILY Label Comments: TAKE 1 TABLET BY MOUTH EVERY DAY pilocarpine HCl 5 mg tablet 5 mg PO TID Label Comments: TAKE 1 TABLET BY MOUTH THREE TIMES A DAY tizanidine 4 mg tablet 4 - 8 mg PO Q8H PRN (Reason: muscle spasticity) Label Comments: Take 1-2 tablet by mouth every six to eight hours as needed for muscle spasms hydroxyzine HCl 50 mg tablet 50 - 100 mg PO Q6H PRN Label Comments: TAKE 1-2 TABLETS (50-100 MG) BY MOUTH EVERY 6 HOURS IF NEEDED FOR ITCHING OR OTHER tamsulosin 0.4 mg capsule 0.4 mg PO DAILY Label Comments: TAKE 1 CAPSULE BY MOUTH ONCE DAILY AFTER A MEAL. mirtazapine 30 mg tablet 30 mg PO HS Label Comments: TAKE 1 TABLET BY MOUTH AT BEDTIME. levothyroxine 150 mcg tablet 150 mcg PO DAILY Label Comments: TAKE 1 TABLET (150 MCG) BY MOUTH BEFORE BREAKFAST. losartan 25 mg tablet 25 mg PO DAILY Label Comments: TAKE 1 TABLET BY MOUTH EVERY DAY omeprazole 20 mg capsule,delayed release(DR/EC) 20 mg PO DAILY Label Comments: TAKE 1 CAPSULE (20 MG) BY MOUTH ONCE DAILY BEFORE A MEAL. furosemide 20 mg tablet 20 mg PO DAILY Label Comments: TAKE 1 TABLET (20 MG) BY MOUTH EVERY MORNING. IF NEEDED. MAY TAKE IF WEIGHT INCREASES BY 3# OR MORE hydroxychloroquine 200 mg tablet 200 mg PO BID Label Comments: TAKE 1 TABLET BY MOUTH TWICE A DAY albuterol sulfate 90 mcg/actuation HFA aerosol inhaler 1 - 2 puff INHALATION Q4H PRN Label Comments: INHALE 1-2 PUFFS BY MOUTH EVERY 4 HOURS IF NEEDED. ketoconazole 2 % cream 1 applic TOPICAL BID Label Comments: APPLY TO AFFECTED AREA TWICE A DAY buspirone 15 mg tablet 15 mg PO BID Label Comments: TAKE 1 TABLET BY MOUTH TWICE A DAY duloxetine 60 mg capsule,delayed release(DR/EC) 120 mg PO DAILY Label Comments: TAKE 2 CAPSULES (120MG) BY MOUTH ONCE DAILY. pregabalin 300 mg capsule 300 mg PO BID Label Comments: TAKE 1 CAPSULE BY MOUTH TWICE A DAY oxycodone [OxyContin] 20 mg tablet,oral only,ext.rel.12 hr 20 mg PO TID Label Comments: TAKE 1 TABLET BY MOUTH THREE TIMES A DAY Follow Up/Referrals: Provider,Not a Local [Primary Care Provider] -
[2022-09-08 19:03] LABS: Lactate Sepsis w/Reflex* 3.7 mmol/L (0.5-1.9)
[2022-09-08] MEDS: TRANEXAMIC ACID 100 MG/ML INJ 1000 MG IV (19:05)
[2022-09-08 19:13] LABS: HCO3 VBG 24 mmol/L (21-28); PCO2 VBG 50 mmHG (40-50); PO2 VBG 29.4 mmHG (25-47); pH VBG 7.285 (7.32-7.43)
[2022-09-08 19:14] LABS: Basophils Percent Auto 0.1 % (0.0-3.0); Hematocrit 38.8 % (33.0-51.0); Hemoglobin* 12.4 gm/dL (12.0-16.0); Immature Granulocytes Pct Auto 1.1 %; Lymphocytes Percent Auto 1.2 % (20-44); Mean Corpuscular HGB Conc 32 gm/dL (32-36); Mean Corpuscular Hemoglobin 27 pg (26-34); Mean Corpuscular Volume 85 fL (80-100); Monocytes Percent Auto 3.2 % (0.0-11.0); Neutrophils Percent Auto 94.4 % (42.0-72.0); Platelet Count* 287 K/uL (140-440); RDW Coefficient of Variation % 14.9 % (11.5-15.5); Red Blood Count 4.57 m/uL (4.00-5.20); White Blood Count* 14.84 K/uL (4.50-11.00)
[2022-09-08 19:15] LABS: Slide Review Reflex No
[2022-09-08 19:36] LABS: Chloride* 99 mmol/L (96-114)
[2022-09-08 19:37] LABS: Albumin* 4.3 g/dL (3.3-5.0); Sodium* 135 mmol/L (135-149)
[2022-09-08 19:38] LABS: INR 0.97 (0.91-1.10); Partial Thromboplastin Time* 20 Seconds (23-33); Potassium* 3.4 mmol/L (3.6-5.1); Prothrombin Time 13.5 Seconds
[2022-09-08 19:39] LABS: Creatinine* 3.4 mg/dL (0.5-1.5); Est. Creatinine Clearance* 14.84; Estimated Glomerular Filt Rate 14 ml/min
[2022-09-08 19:40] LABS: Alanine Aminotransferase* 31 U/L (4-35); Alkaline Phosphatase* 111 U/L (40-150); Aspartate Amino Transferase* 164 U/L (12-35); Bilirubin Direct* 0.4 mg/dL (0.0-0.5); Bilirubin Total* 0.5 mg/dL (0.1-1.5); Blood Urea Nitrogen* 29 mg/dL (7-30); Carbon Dioxide* 22 mmol/L (20-32); Glucose* 127 mg/dL (60-115); Total Protein* 7.6 g/dL (6.0-8.3)
[2022-09-08 19:41] LABS: Calcium* 9.2 mg/dL (8.4-10.6)
[2022-09-08 19:44] LABS: PCR FLU A Negative PCR FLU A (Negative); PCR FLU B Negative PCR FLU B (Negative)
[2022-09-08 19:47] LABS: Ethanol* < 0.01 % (0.01-0.03)
[2022-09-08 19:48] LABS: SARS PCR* Negative SARS-CoV-2 (Negative)
[2022-09-08 19:57] LABS: Procalcitonin* 0.83 ng/mL (<0.50)
[2022-09-08 20:00] LABS: C Reactive Protein* 14.9 mg/dL (0.5-1.0)
--- NOTE | 2022-09-08 20:19 | CRLHL7_ITS ---
For Patients: As a result of the Century Cures Act, medical imaging exams and procedure reports are released immediately into your electronic medical record. You may view this report before your referring provider. If you have questions, please contact your health care provider. INDICATION: Sepsis, lower abdominal pain, diarrhea, possible GI bleed TECHNIQUE: CT chest, abdomen and pelvis acquired without IV contrast. COMPARISON: August 19, 2022 FINDINGS: Chest: Cardiovascular structures: Heart size is normal. Thoracic aorta and main pulmonary artery are normal in caliber. Mediastinum and jose luis: No mass or adenopathy. Moderate-sized hiatal hernia. Lungs: Scattered linear atelectasis or scarring. Micronodular opacities throughout the right lung. Pleura and pericardium: No effusions. Chest wall and axilla: No mass or adenopathy. Elevated right hemidiaphragm. Bones: Unremarkable for age. Abdomen and Pelvis: Liver: Unremarkable. Spleen: Unremarkable. Pancreas: Fatty infiltration of the pancreas. Gallbladder and bile ducts: S/p cholecystectomy. Adrenal glands: Unremarkable. Kidneys: Unremarkable. GI tract: Fluid in an otherwise normal appearing colon. Appendix is not seen. Vascular structures: Aortoiliac calcifications. Lymph nodes: Unremarkable. Miscellaneous: Unremarkable. No free air or significant free fluid. Pelvic Organs: Status post hysterectomy. Bones: Internal fixation hardware in the lower lumbar spine and sacroiliac joints. There is levoscoliosis of the lumbar spine. Age-related degenerative changes in the spine. IMPRESSION: Micronodular opacities throughout the right lung concerning for infection, including atypical infections. Fluid in an otherwise normal appearing colon consistent with diarrheal illness. Moderate-sized hiatal hernia. Elevated right hemidiaphragm. Status post cholecystectomy, hysterectomy, and lumbosacral surgery. Please note that all CT scans at this facility use dose modulation, iterative reconstruction, and/or weight-based dosing when appropriate to reduce radiation dose to as low as reasonably achievable. Dictated by Erika Choi MD @ 09/08/2022 9:20:28 PM (Electronically Signed)
[2022-09-08 20:31] LABS: Ammonia* < 9.0 umol/L (13.1-30.0)
--- NOTE | 2022-09-08 20:42 | ED.NURSE ---
Lab in room to draw second set of cultures but unable to obtain sample. Pt's extremities wrapped in warm blankets to dilate veins. Lamps Tester And Inspector in room to clean pt and place new brief. Pt has copious amount of sticky brown stool on buttock and in groin. Hemocult obtained from stool and shown to MD. Negative hemocult. Stool sample brought to lab. IV fluids unable to progress in right AC. Attempt to flush right 18 gauge AC PIV, but line not flushing. Also unable to flush EMS placed line (18 gauge) in left AC. Left AC infiltrated. updated. Call to house builder to call anesthesia for line placement. poker supervisor and CLAY Baum in room to attempt new line placement. Attempt to place marshall catheter by marketing underwriter. Approximately 10 cc urine in marshall line but unable to progress marshall catheter and urine output no longer flowing. New marshall catheter placed by CLAY Baum, but no urine output obtained. Marshall catheter placed by CLAY Ulloa from OB department. Marshall placed and 10 cc saline placed in catheter balloon. Balloon then appears to come out of bladder. Bladder scan shows ~26 cc. Pt states she has not urinated in 3 days. updated. Unable to obtain UA at this time. Pt to CT.
--- NOTE | 2022-09-08 21:20 | W.PC.EDHO ---
Primary Language: Preferred Language: Orientation Status: [] Alert & Oriented [x] Slight Confusion [] Known Dx Dementia Transfers By: [] Assist of 1 [] Assist of 2 [x] Lift Active Medications Discontinued Medications Generic Name Dose Route Start Last Admin Trade Name Erik PRN Reason Stop Dose Admin Sodium Chloride 1,000 mls @ 6,000 mls/hr 09/08/22 18:49 09/08/22 18:55 0.9 % Sodium Chloride 1000 Ml IV 09/08/22 18:58 6,000 mls/hr .Q10M ONE Administration Tranexamic Acid 1,000 mg 09/08/22 18:49 09/08/22 19:05 Tranexamic Acid 100 Mg/Ml Inj IV 09/08/22 18:50 1,000 mg ONCE ONE Administration Description of Symptoms ED Triage Present Problem Increase in weakness. Has had diarrhea and Description vomiting for thepast 2-3 days. Stool is dark and sticky Was admited and d/c from [facility] august 30- for pneumonia. EMS states pt was cyanotic when they arrived. b/p 60/30 and were unable to feel radial pulse. High flow started and fluids given. B/p up to 114/88 prior to arrival. Female History Hx Last Menstrual Period NA Pain Pain Description [Back] Chronic Pain Intensity [Back] 8 Pain Scale Used [Back] Numeric (1 - 10) IV Insertion/Site Date of IV Line Insertion [ 09/08/22 Right Anticubital] Date of IV Line Insertion [ 09/08/22 Right Anticubital] Date of IV Line Insertion [ 09/08/22 Left Antecubital] Date of IV Line Insertion [ 09/08/22 Left Antecubital] Oxygen Administration Pulse Oximetry 91 Pulse Oximetry 95 Pulse Oximetry 95 Pulse Oximetry 94 Pulse Oximetry 90 Pulse Oximetry 93 Pulse Oximetry 96 Pulse Oximetry 100 Pulse Oximetry 100 Pulse Oximetry 100 Pulse Oximetry 100 Pulse Oximetry 100 Pulse Oximetry 100 Pulse Oximetry 100 Oxygen Delivery Method OxyMask Oxygen Delivery Method OxyMask Oxygen Delivery Method OxyMask Oxygen Flow Rate 5 Oxygen Flow Rate 3 Oxygen Flow Rate 2 Cardiac Monitoring EKG Method 12 Lead
--- NOTE | 2022-09-08 21:21 | ED.NURSE ---
mixing place supervisor and CLAY Baum unable to obtain access. mixing place supervisor calling anesthesia. Pt's at bedside.
--- NOTE | 2022-09-08 21:23 | ED.NURSE ---
Per anesthesia, department does not have catheters long enough for pt's IV placement. updated.
[2022-09-08 21:46] LABS: C.Difficile Negative (Negative); CDIFFEPI 027 PRESUMPTIVE NEGATIVE (Negative)
[2022-09-08] MEDS: ONDANSETRON ODT 4 MG TAB PO (22:05)
--- NOTE | 2022-09-08 22:15 | P.IMHP_ITS ---
Hospitalist- H&P: HPI History of Present Illness Date Seen: 09/09/22 Chief complaint: Hypotesion, Black tarry stools Narrative: Cyndi Mcnally is a 67 year old female who presented to the emergency room by ambulance for illness. Unfortunately, patient's had left the emergency room prior to my interview and patient is noted to be a poor historian. Cyndi notes that she has felt poorly for approximally 10 days; has noted nausea, diarrhea, and ?dry heaving? for the last 1-2 days. She specifically denies chest pain or trouble breathing. She denies recent melena or hematochezia; however, it sounds like there was concern for a GI bleed from (stool had been dark and sticky) when EMS picked the patient up. ER Course and Findings: - IVFs, Central Line placed by General Surgery 2/2 poor IV access - TXA, Zosyn, Vanco, IV PPI - Creatinine 3.4 (outpatient baseline <1) - elevated Procalcitonin, elevated WBC - query positive Hemoccult in the emergency room, sounds like sample was suboptimal - unable to place marshall catheter 2/2 cystocele Given severe illness, patient admitted to our critical care unit. Patient has extensive medical history; notably was admitted to our hospital for sepsis and respiratory failure last month. She is on chronic narcotics. Most of her history is gleaned from chart review. PCP is Armando Rubio PA-C at [facility]. Review of Systems Narrative: Complete ROS limited by patient's cognition; she specifically denies chest pain or dyspnea. She endorses mild lower abdominal pain, expresses no other concerns for hospitalist. [facility] Medical History (Updated 09/09/22 @ 00:54 by Deana Rangel MD) Achalasia Anemia Anxiety with depression Aphasia as late effect of cerebrovascular accident Aspiration pneumonia Carpal tunnel syndrome of right wrist Cervicalgia Chronic pain Chronic, continuous use of opioids Colonic stricture Consolidation of right upper lobe of lung COPD (chronic obstructive pulmonary disease) Crohn disease CVA (cerebral vascular accident) De Quervain's syndrome (tenosynovitis) Degeneration of lumbar or lumbosacral intervertebral disc Depression Displacement of lumbar intervertebral disc without myelopathy Elevated ferritin Empyema lung Equinus contracture of left ankle Facial basal cell cancer (~2005) Fatigue Foot drop H/O echocardiogram Hemoptysis Hiatal hernia Hyperlipemia Hypotension Hypothyroid Impairment of balance Interstitial lung disease Migraine Myocardial infarction Obesity Picking own skin Primary osteoarthritis of right knee Pulmonary nodule Sinus tachycardia Sjogrens syndrome Sleep apnea Sleep stage dysfunction Syncope Synovial cyst of popliteal space Trigger finger of right hand Surgical History H/O colonoscopy H/O foot surgery (~1995) H/O lumbar discectomy (~2009) H/O meniscectomy of right knee (~2008) H/O nephrolithotomy with removal of calculi (~1989) H/O vaginal hysterectomy History of facial surgery History of total right knee replacement (TKR) (10/13/15) S/P breast lumpectomy (~1987) S/P hardware removal (~2012) S/P small bowel resection (~2012) Status post cholecystectomy (~1996) Family History Other Alcohol use disorder Breast cancer High blood pressure Pancreatic cancer Social History Narrative: Full code. Lives with . Denies tobacco use, quit 5 years ago, smoked a quarter of a pack for about 20 years off and on. Denies alcohol use. Denies recreational drug use. Smoking Status: Unknown if ever smoked How often do you have a drink containing alcohol: never AUDIT-C Alcohol total score: 0 Non-prescribed substance use: denies use Caffeine: Yes (Pop soda) service: No Meds Home Medications and Allergies Home Medications Medication Instructions Recorded Confirmed Type albuterol sulfate 90 mcg/actuation 1 - 2 puff inhalation Q4H PRN 12/28/21 09/08/22 History aerosol inhaler atorvastatin 40 mg tablet 40 mg PO DAILY 12/28/21 09/08/22 History buspirone 15 mg tablet 15 mg PO BID 12/28/21 09/08/22 History duloxetine 60 mg capsule,delayed 120 mg PO DAILY 12/28/21 09/08/22 History release furosemide 20 mg tablet 20 mg PO DAILY 12/28/21 09/08/22 History hydroxychloroquine 200 mg tablet 200 mg PO BID 12/28/21 09/08/22 History hydroxyzine HCl 50 mg tablet 50 - 100 mg PO Q6H PRN 12/28/21 09/08/22 History ketoconazole 2 % topical cream 1 applic topical BID 12/28/21 09/08/22 History levothyroxine 150 mcg tablet 150 mcg PO DAILY 12/28/21 09/08/22 History losartan 25 mg tablet 25 mg PO DAILY 12/28/21 09/08/22 History mirtazapine 30 mg tablet 30 mg PO HS 12/28/21 09/08/22 History omeprazole 20 mg capsule,delayed 20 mg PO DAILY 12/28/21 09/08/22 History release oxycodone 20 mg tablet,crush 20 mg PO TID 12/28/21 09/08/22 History resistant,extended release 12 hr (OxyContin) pilocarpine HCl 5 mg tablet 5 mg PO TID 12/28/21 09/08/22 History pregabalin 300 mg capsule 300 mg PO BID 12/28/21 09/08/22 History tamsulosin 0.4 mg capsule 0.4 mg PO DAILY 12/28/21 09/08/22 History tizanidine 4 mg tablet 4 - 8 mg PO Q8H PRN muscle 12/28/21 09/08/22 History spasticity aspirin 325 mg capsule 325 mg PO DAILY 08/20/22 09/08/22 History Home Medication Comments: Patient unable to tell me her medications, there has been concern about opiate overuse in the past Allergies Allergy/AdvReac Type Severity Reaction Status Date / Time Sulfa (Sulfonamide Allergy Intermediate Rash Verified 12/28/21 17:24 Antibiotics) preservative Allergy Uncoded 12/28/21 17:24 Exam Narrative: Exam Narrative: GEN: Alert and appears ill, intermittently answering questions appropriately HEENT: + EOMIs bilaterally, no scleral icterus, + conjunctival pallor CV: RRR, harsh systolic murmur heard best at left upper sternal border with no radiation R: Decreased bilateral bases with no wheezing, patient not taking deep breaths during exam, mild bilateral rhonchi noted Ext: Left great toe amputated, no other skin concerns on left foot. Right lower extremity has abrasions and small ulcerated lesion on plantar aspect of right great toe, no surrounding crepitus, no ttp Skin: No other concerning skin lesions or rashes on exposed skin Neuro: Patient has intermittent jerking episodes, significance unclear. She states she has not had these in the past Psych: + psychomotor slowing Const: Vital Signs, click to edit/add: Vital Signs - 24 hr 09/08/22 18:49 09/08/22 18:49 09/08/22 19:07 Temperature 96.2 F L Pulse Rate Pulse Rate [Pulse Oximeter] 97 Respiratory Rate 22 Blood Pressure Blood Pressure [Le ft Forearm] 114/71 Pulse Oximetry 100 100 100 Oxygen Delivery Me thod OxyMask OxyMask Oxygen Flow Rate 2 3 09/08/22 19:11 09/08/22 19:12 09/08/22 19:15 Temperature Pulse Rate 98 98 100 Pulse Rate [Pulse Oximeter] Respiratory Rate Blood Pressure 90/68 Blood Pressure [Le ft Forearm] Pulse Oximetry 100 100 100 Oxygen Delivery Me thod OxyMask Oxygen Flow Rate 5 09/08/22 19:23 09/08/22 19:30 09/08/22 19:33 Temperature Pulse Rate 99 96 97 Pulse Rate [Pulse Oximeter] Respiratory Rate Blood Pressure 78/39 L 91/50 L Blood Pressure [Le ft Forearm] Pulse Oximetry 100 96 93 Oxygen Delivery Me thod Oxygen Flow Rate 09/08/22 19:45 09/08/22 19:54 09/08/22 20:00 Temperature Pulse Rate 100 100 98 Pulse Rate [Pulse Oximeter] Respiratory Rate Blood Pressure 108/78 Blood Pressure [Le ft Forearm] Pulse Oximetry 90 94 Oxygen Delivery Me thod Oxygen Flow Rate 09/08/22 20:04 09/08/22 20:11 09/08/22 20:15 Temperature Pulse Rate 98 99 96 Pulse Rate [Pulse Oximeter] Respiratory Rate Blood Pressure 101/63 74/44 L Blood Pressure [Le ft Forearm] Pulse Oximetry 95 95 91 Oxygen Delivery Me thod Oxygen Flow Rate 09/08/22 20:22 09/08/22 20:30 Temperature Pulse Rate 101 H 99 Pulse Rate [Pulse Oximeter] Respiratory Rate Blood Pressure 69/40 L Blood Pressure [Le ft Forearm] Pulse Oximetry Oxygen Delivery Me thod Oxygen Flow Rate Hospitalist - H&P: Result Labs Labs: Short CBC 09/08/22 Range/Units 18:50 WBC 14.84 H (4.50-11.00) K/uL Hgb 12.4 (12.0-16.0) gm/dL Hct 38.8 (33.0-51.0) % Plt Count 287 (140-440) K/uL BMP 09/08/22 18:50 Sodium 135 Potassium 3.4 L Chloride 99 Carbon Dioxide 22 BUN 29 Creatinine 3.4 H Glucose 127 H Calcium 9.2 Liver Function 09/08/22 Range/Units 18:50 Total Bilirubin 0.5 (0.1-1.5) mg/dL Direct Bilirubin 0.4 (0.0-0.5) mg/dL AST 164 H (12-35) U/L ALT 31 (4-35) U/L Alkaline Phosphatase 111 (40-150) U/L Albumin 4.3 (3.3-5.0) g/dL Assessment and Plan Assessment and plan (1) Sepsis with acute hypoxic respiratory failure: Problem comment: - likely 2/2 opacities noted in R lung, right toe wound also a consideration - continue Zosyn and Vancomycin (09/08), add Azithromycin (09/09) - continue aggressive fluid resuscitation Status: Acute (2) Acute kidney injury: Problem comment: - outpatient creatinine baseline <1; patient notably had JACK with hospitalization in August as well - likely prerenal 2/2 recent GI illness, in addition to acute respiratory illness - hold nephrotoxins, rehydrate and follow closely Status: Acute (3) Vomiting and diarrhea: Problem comment: - appears to be related to viral GI illness and improved in ED, continue IVFs and prn anti-emetics Status: Acute (4) Dehydration: Status: Acute (5) Altered mental status: Problem comment: - likely 2/2 #1 Status: Acute (6) Chronic, continuous use of opioids: Status: Acute (7) Heart murmur: Problem comment: - noted during previous hospitalization, likely exacerbated by dehydrated status - TTE obtained 08/21/22: Final Impressions: 1. Technically limited exam. 2. Normal LV size, moderately increased wall thickness, normal global systolic function with an estimated EF of 65 - 70%. Status: Acute Plan - per above - defer pharmacologic anticoagulation at this time - follow Hgb, lactate, Renal function - patient requests Full Code status, as she has during previous hospitalizations - attempted call to Eric to discuss plan of care, no answer
--- NOTE | 2022-09-08 22:33 | CRLHL7_ITS ---
For Patients: As a result of the Century Cures Act, medical imaging exams and procedure reports are released immediately into your electronic medical record. You may view this report before your referring provider. If you have questions, please contact your health care provider. HISTORY: Central line placement. COMPARISON: Portable chest from earlier today at 1857 hours FINDINGS: A portable erect AP view of the chest was obtained at 22 39 hours. There is a new right internal jugular central line with its tip in satisfactory position in the superior right atrium. There is no sign of pneumothorax on the right. The previously seen mild patchy atelectasis of the right lung base has resolved. There may be a stable tiny right pleural effusion. The rest of the chest is clear. The heart remains mildly enlarged. There is a stable moderate-sized hiatal hernia. The mediastinum is otherwise normal in appearance. The osseous structures are normal in appearance for the patient`s age. IMPRESSION: Satisfactory positioning of right internal jugular central line with no sign of pneumothorax. Clearing of mild patchy right basilar atelectasis. Stable tiny right pleural effusion. Stable mild cardiomegaly. Stable moderate sized hiatal hernia. Dictated by Colin Longoria MD @ 09/08/2022 10:58:01 PM (Electronically Signed)
--- NOTE | 2022-09-08 22:40 | PM.GSCN ---
History of Present Illness Consult details Date Seen: 09/08/22 Consult date: 09/08/22 Narrative: Patient is in the ED for sepsis. She is currently in need for central line access. Risks and benefits of the procedure were discussed at length with the patient with her agreeing to proceed. Review of Systems Status of ROS: Reports: unobtainable due to medical condition [facility] Medical History (Updated 09/08/22 @ 22:28 by Deana Rangel MD) Achalasia Anemia Anxiety with depression Aphasia as late effect of cerebrovascular accident Aspiration pneumonia Carpal tunnel syndrome of right wrist Cervicalgia Chronic pain Chronic, continuous use of opioids Colonic stricture Consolidation of right upper lobe of lung COPD (chronic obstructive pulmonary disease) Crohn disease CVA (cerebral vascular accident) De Quervain's syndrome (tenosynovitis) Degeneration of lumbar or lumbosacral intervertebral disc Depression Displacement of lumbar intervertebral disc without myelopathy Elevated ferritin Empyema lung Equinus contracture of left ankle Facial basal cell cancer (~2005) Fatigue Foot drop H/O echocardiogram Hemoptysis Hiatal hernia Hyperlipemia Hypotension Hypothyroid Impairment of balance Interstitial lung disease Migraine Myocardial infarction Obesity Picking own skin Primary osteoarthritis of right knee Pulmonary nodule Sinus tachycardia Sjogrens syndrome Sleep apnea Sleep stage dysfunction Syncope Synovial cyst of popliteal space Trigger finger of right hand Surgical History H/O colonoscopy H/O foot surgery (~1995) H/O lumbar discectomy (~2009) H/O meniscectomy of right knee (~2008) H/O nephrolithotomy with removal of calculi (~1989) H/O vaginal hysterectomy History of facial surgery History of total right knee replacement (TKR) (10/13/15) S/P breast lumpectomy (~1987) S/P hardware removal (~2012) S/P small bowel resection (~2012) Status post cholecystectomy (~1996) Family History Other Alcohol use disorder Breast cancer High blood pressure Pancreatic cancer Social History Narrative: Full code. Lives with . Denies tobacco use, quit 5 years ago, smoked a quarter of a pack for about 20 years off and on. Denies alcohol use. Denies recreational drug use. Smoking Status: Unknown if ever smoked How often do you have a drink containing alcohol: never AUDIT-C Alcohol total score: 0 Non-prescribed substance use: denies use Caffeine: Yes (Pop soda) service: No Meds Home Medications and Allergies Home Medications Medication Instructions Recorded Confirmed Type albuterol sulfate 90 mcg/actuation 1 - 2 puff inhalation Q4H PRN 12/28/21 09/08/22 History aerosol inhaler atorvastatin 40 mg tablet 40 mg PO DAILY 12/28/21 09/08/22 History buspirone 15 mg tablet 15 mg PO BID 12/28/21 09/08/22 History duloxetine 60 mg capsule,delayed 120 mg PO DAILY 12/28/21 09/08/22 History release furosemide 20 mg tablet 20 mg PO DAILY 12/28/21 09/08/22 History hydroxychloroquine 200 mg tablet 200 mg PO BID 12/28/21 09/08/22 History hydroxyzine HCl 50 mg tablet 50 - 100 mg PO Q6H PRN 12/28/21 09/08/22 History ketoconazole 2 % topical cream 1 applic topical BID 12/28/21 09/08/22 History levothyroxine 150 mcg tablet 150 mcg PO DAILY 12/28/21 09/08/22 History losartan 25 mg tablet 25 mg PO DAILY 12/28/21 09/08/22 History mirtazapine 30 mg tablet 30 mg PO HS 12/28/21 09/08/22 History omeprazole 20 mg capsule,delayed 20 mg PO DAILY 12/28/21 09/08/22 History release oxycodone 20 mg tablet,crush 20 mg PO TID 12/28/21 09/08/22 History resistant,extended release 12 hr (OxyContin) pilocarpine HCl 5 mg tablet 5 mg PO TID 12/28/21 09/08/22 History pregabalin 300 mg capsule 300 mg PO BID 12/28/21 09/08/22 History tamsulosin 0.4 mg capsule 0.4 mg PO DAILY 12/28/21 09/08/22 History tizanidine 4 mg tablet 4 - 8 mg PO Q8H PRN muscle 12/28/21 09/08/22 History spasticity aspirin 325 mg capsule 325 mg PO DAILY 08/20/22 09/08/22 History Allergies Allergy/AdvReac Type Severity Reaction Status Date / Time Sulfa (Sulfonamide Allergy Intermediate Rash Verified 12/28/21 17:24 Antibiotics) preservative Allergy Uncoded 12/28/21 17:24 Exam Narrative: Exam Narrative: General: Patient in moderate distress, nontoxic in appearance in lying in bed. Respiratory: Maintained on nasal cannula, tachypneic with some accessory muscle use CV: Tachycardic HEENT: Compressible but dilated right internal jugular vein Const: Vital Signs, click to edit/add: Vital Signs - 24 hr 09/08/22 18:49 09/08/22 18:49 09/08/22 19:07 Temperature 96.2 F L Pulse Rate Pulse Rate [Pulse Oximeter] 97 Respiratory Rate 22 Blood Pressure Blood Pressure [Le ft Forearm] 114/71 Pulse Oximetry 100 100 100 Oxygen Delivery Me thod OxyMask OxyMask Oxygen Flow Rate 2 3 09/08/22 19:11 09/08/22 19:12 09/08/22 19:15 Temperature Pulse Rate 98 98 100 Pulse Rate [Pulse Oximeter] Respiratory Rate Blood Pressure 90/68 Blood Pressure [Le ft Forearm] Pulse Oximetry 100 100 100 Oxygen Delivery Me thod OxyMask Oxygen Flow Rate 5 09/08/22 19:23 09/08/22 19:30 09/08/22 19:33 Temperature Pulse Rate 99 96 97 Pulse Rate [Pulse Oximeter] Respiratory Rate Blood Pressure 78/39 L 91/50 L Blood Pressure [Le ft Forearm] Pulse Oximetry 100 96 93 Oxygen Delivery Me thod Oxygen Flow Rate 09/08/22 19:45 09/08/22 19:54 09/08/22 20:00 Temperature Pulse Rate 100 100 98 Pulse Rate [Pulse Oximeter] Respiratory Rate Blood Pressure 108/78 Blood Pressure [Le ft Forearm] Pulse Oximetry 90 94 Oxygen Delivery Me thod Oxygen Flow Rate 09/08/22 20:04 09/08/22 20:11 09/08/22 20:15 Temperature Pulse Rate 98 99 96 Pulse Rate [Pulse Oximeter] Respiratory Rate Blood Pressure 101/63 74/44 L Blood Pressure [Le ft Forearm] Pulse Oximetry 95 95 91 Oxygen Delivery Me thod Oxygen Flow Rate 09/08/22 20:22 09/08/22 20:30 Temperature Pulse Rate 101 H 99 Pulse Rate [Pulse Oximeter] Respiratory Rate Blood Pressure 69/40 L Blood Pressure [Le ft Forearm] Pulse Oximetry Oxygen Delivery Me thod Oxygen Flow Rate Results Labs Labs: Abnormal lab results 09/08/22 09/08/22 09/08/22 Range/Units 18:50 18:50 18:50 WBC 14.84 H (4.50-11.00) K/uL Neut % (Auto) 94.4 H (42.0-72.0) % Lymph % (Auto) 1.2 L (20-44) % Neut # (Auto) 14.00 H (1.7-7.0) K/uL Lymph # (Auto) 0.20 L (0.90-2.90) K/uL APTT 20 L (23-33) Seconds VBG pH (7.32-7.43) Potassium (3.6-5.1) mmol/L Creatinine (0.5-1.5) mg/dL Glucose (60-115) mg/dL AST (12-35) U/L Ammonia (13.1-30.0) umol/L Lactate Baseline 3.7 H (0.5-1.9) mmol/L C-Reactive Protein (0.5-1.0) mg/dL Procalcitonin (<0.50) ng/mL Ethyl Alcohol (0.01-0.03) % 09/08/22 09/08/22 09/08/22 Range/Units 18:50 18:50 18:55 WBC (4.50-11.00) K/uL Neut % (Auto) (42.0-72.0) % Lymph % (Auto) (20-44) % Neut # (Auto) (1.7-7.0) K/uL Lymph # (Auto) (0.90-2.90) K/uL APTT (23-33) Seconds VBG pH 7.285 L (7.32-7.43) Potassium 3.4 L (3.6-5.1) mmol/L Creatinine 3.4 H (0.5-1.5) mg/dL Glucose 127 H (60-115) mg/dL AST 164 H (12-35) U/L Ammonia < 9.0 L (13.1-30.0) umol/L Lactate Baseline (0.5-1.9) mmol/L C-Reactive Protein 14.9 H (0.5-1.0) mg/dL Procalcitonin 0.83 H (<0.50) ng/mL Ethyl Alcohol < 0.01 L (0.01-0.03) % Diabetes panel 09/08/22 Range/Units 18:50 Sodium 135 (135-149) mmol/L Potassium 3.4 L (3.6-5.1) mmol/L Chloride 99 (96-114) mmol/L Carbon Dioxide 22 (20-32) mmol/L BUN 29 (7-30) mg/dL Creatinine 3.4 H (0.5-1.5) mg/dL Glucose 127 H (60-115) mg/dL Calcium 9.2 (8.4-10.6) mg/dL AST 164 H (12-35) U/L ALT 31 (4-35) U/L Alkaline Phosphatase 111 (40-150) U/L Total Protein 7.6 (6.0-8.3) g/dL Albumin 4.3 (3.3-5.0) g/dL Calcium panel 09/08/22 Range/Units 18:50 Calcium 9.2 (8.4-10.6) mg/dL Albumin 4.3 (3.3-5.0) g/dL Pituitary panel 09/08/22 Range/Units 18:50 Sodium 135 (135-149) mmol/L Potassium 3.4 L (3.6-5.1) mmol/L Chloride 99 (96-114) mmol/L Carbon Dioxide 22 (20-32) mmol/L BUN 29 (7-30) mg/dL Creatinine 3.4 H (0.5-1.5) mg/dL Glucose 127 H (60-115) mg/dL Calcium 9.2 (8.4-10.6) mg/dL Adrenal panel 09/08/22 Range/Units 18:50 Sodium 135 (135-149) mmol/L Potassium 3.4 L (3.6-5.1) mmol/L Chloride 99 (96-114) mmol/L Carbon Dioxide 22 (20-32) mmol/L BUN 29 (7-30) mg/dL Creatinine 3.4 H (0.5-1.5) mg/dL Glucose 127 H (60-115) mg/dL Calcium 9.2 (8.4-10.6) mg/dL Total Bilirubin 0.5 (0.1-1.5) mg/dL AST 164 H (12-35) U/L ALT 31 (4-35) U/L Alkaline Phosphatase 111 (40-150) U/L Total Protein 7.6 (6.0-8.3) g/dL Albumin 4.3 (3.3-5.0) g/dL All other labs normal. Imaging Chest x-ray: image reviewed Assessment and Plan Assessment and plan (1) Sepsis: Status: Acute Plan Consult for sepsis and need for central line access. The procedure was reviewed with the patient and a time-out performed. Patient tolerated procedure well without immediate complication. Chest x-ray demonstrated no evidence of pneumothorax or hemothorax with catheter in appropriate position. General Surgery Procedures Central Line Placement Right IJ: Time out performed: Yes Patient placed on monitor/pulse ox: Yes MD prep: mask, gown and gloves Central line prep: Chlorhexidine scrub Local anesthesia used: lidocaine 1% Amount of anesthesia used (ml): 5 Central line lumen inserted: triple Central line placement: non-tunnelled Image guidance used: US guidance Post procedure: sutured in place, good blood return, all ports aspirated, flushed, capped and sterile dressing applied Post procedure x-ray: tip of catheter in good position and no pneumothorax seen Patient tolerated procedure: well and no complications Complications: none
--- NOTE | 2022-09-08 22:46 | ED.NURSE ---
Dr. Jaquez at bedside to place central line with aseptic technique. Blood drawn and taken to lab.
[2022-09-08 22:51] LABS: Lactate* 1.5 mmol/L (0.5-1.9)
[2022-09-08 22:59] LABS: Basophils Percent Auto 0.1 % (0.0-3.0); Hematocrit 32.9 % (33.0-51.0); Hemoglobin* 10.6 gm/dL (12.0-16.0); Immature Granulocytes Pct Auto 0.3 %; Lymphocytes Percent Auto 2.2 % (20-44); Mean Corpuscular HGB Conc 32 gm/dL (32-36); Mean Corpuscular Hemoglobin 27 pg (26-34); Mean Corpuscular Volume 84 fL (80-100); Monocytes Percent Auto 4.2 % (0.0-11.0); Neutrophils Percent Auto 93.2 % (42.0-72.0); Platelet Count* 260 K/uL (140-440); White Blood Count* 11.77 K/uL (4.50-11.00)
[2022-09-08] MEDS: LACTATED RINGERS 1000 ML 1,000 ML IV (23:03)
[2022-09-08] MEDS: PANTOPRAZOLE SODIUM 40 MG INJ 80 MG IVP (23:04)
[2022-09-08 23:07] LABS: Slide Review Reflex No
[2022-09-08] MEDS: PIPERACILLIN/TAZOBACTAM 4.5 GM in 0.9 % SODIUM CHLORIDE Mini-bag 100 ML IVPB (23:16)
[2022-09-09] VITALS (22 sets, daily range): BP systolic 78–134; BP diastolic 23–96; PULSE 90–118; RESP 16–20; TEMP -12.6–37.1; O2SAT 93–99; BMI 33.9
[2022-09-09 00:34] LABS: Potassium* 3.2 mmol/L (3.6-5.1); Sodium* 134 mmol/L (135-149)
[2022-09-09 00:35] LABS: Blood Urea Nitrogen* 31 mg/dL (7-30); Calcium* 8.2 mg/dL (8.4-10.6); Carbon Dioxide* 24 mmol/L (20-32); Chloride* 100 mmol/L (96-114); Creatinine* 3.2 mg/dL (0.5-1.5); Est. Creatinine Clearance* 15.77; Estimated Glomerular Filt Rate 15 ml/min; Glucose* 114 mg/dL (60-115)
[2022-09-09] MEDS: LACTATED RINGERS 1000 ML 1,000 ML 500 ML IV (01:07)
[2022-09-09] MEDS: POTASSIUM CHLORIDE 10 MEQ/100 ML PIGGYBACK 100 MEQ IVPB ×4 (01:08→11:33)
[2022-09-09] MEDS: NYSTATIN POWDER 1 APPLIC TOPICAL (01:09)
[2022-09-09] MEDS: AZITHROMYCIN 500 MG in 0.9 % SODIUM CHLORIDE 250 ml 250 ML 255 MG IVPB (02:12)
[2022-09-09] MEDS: LACTATED RINGERS 1000 ML 1,000 ML 125 ML IV (05:12)
[2022-09-09] MEDS: LEVOTHYROXINE 75 MCG TABLET 150 MCG PO (06:11)
[2022-09-09] MEDS: HEPARIN 500 UNIT/5 ML SYRINGE IVF ×6 (06:12→18:05)
[2022-09-09] MEDS: SODIUM CHLORIDE 0.9 % (FLUSH) 10 ML SYRINGE IVF (06:12)
[2022-09-09 06:33] LABS: Lactate* 1.5 mmol/L (0.5-1.9)
[2022-09-09 06:55] LABS: Chloride* 105 mmol/L (96-114)
[2022-09-09 06:56] LABS: Albumin* 2.8 g/dL (3.3-5.0); Sodium* 136 mmol/L (135-149)
[2022-09-09 06:57] LABS: Potassium* 3.3 mmol/L (3.6-5.1)
[2022-09-09 06:59] LABS: Alanine Aminotransferase* 30 U/L (4-35); Alkaline Phosphatase* 85 U/L (40-150); Aspartate Amino Transferase* 179 U/L (12-35); Bilirubin Total* 0.3 mg/dL (0.1-1.5); Blood Urea Nitrogen* 30 mg/dL (7-30); Carbon Dioxide* 24 mmol/L (20-32); Creatinine* 3.2 mg/dL (0.5-1.5); Est. Creatinine Clearance* 15.77; Estimated Glomerular Filt Rate 15 ml/min; Total Protein* 5.4 g/dL (6.0-8.3)
[2022-09-09 07:00] LABS: Calcium* 7.7 mg/dL (8.4-10.6); Glucose* 98 mg/dL (60-115)
[2022-09-09 07:06] LABS: Basophils Absolute Auto 0.01 K/uL (0.00-0.30); Basophils Percent Auto 0.1 % (0.0-3.0); Eosinophils Absolute Auto 0.01 K/uL (0.00-0.50); Eosinophils Percent Auto 0.1 % (0.0-7.0); Hematocrit 28.5 % (33.0-51.0); Hemoglobin* 9.2 gm/dL (12.0-16.0); Immature Granulocytes Abs Auto 0.01 K/uL (0.00-0.30); Immature Granulocytes Pct Auto 0.1 %; Mean Corpuscular HGB Conc 32 gm/dL (32-36); Mean Corpuscular Hemoglobin 28 pg (26-34); Mean Corpuscular Volume 85 fL (80-100); Neutrophils Percent Auto 90.7 % (42.0-72.0); Platelet Count* 234 K/uL (140-440); RDW Coefficient of Variation % 14.9 % (11.5-15.5); Red Blood Count 3.35 m/uL (4.00-5.20); White Blood Count* 7.69 K/uL (4.50-11.00)
[2022-09-09] MEDS: SODIUM CHLORIDE 0.9 % (FLUSH) 10 ML SYRINGE 5 ML IVF ×3 (07:08→20:50)
[2022-09-09 07:15] LABS: Slide Review Reflex No
[2022-09-09 07:17] LABS: Procalcitonin* 0.81 ng/mL (<0.50)
[2022-09-09 07:21] LABS: C Reactive Protein* 16.3 mg/dL (0.5-1.0)
[2022-09-09 07:37] LABS: pH VBG 7.258 (7.32-7.43)
[2022-09-09 07:38] LABS: HCO3 VBG 23 mmol/L (21-28); PCO2 VBG 51 mmHG (40-50); PO2 VBG 59.7 mmHG (25-47)
[2022-09-09] MEDS: 0.9 % SODIUM CHLORIDE 1000 ml 1,000 ML IV (08:15)
[2022-09-09] MEDS: PANTOPRAZOLE SODIUM 40 MG INJ IVP (08:16)
[2022-09-09 08:20] LABS: Troponin I* 0.33 ng/mL (0.01-0.04)
[2022-09-09 08:20] LABS: NT Pro B Type NatriureticPept* 10700 pg/mL; Troponin I* 0.39 ng/mL (0.01-0.04)
[2022-09-09 08:42] LABS: Creatine Kinase* 6856 U/L (41-117)
[2022-09-09 09:03] LABS: Creatine Kinase* 10357 U/L (41-117)
[2022-09-09] MEDS: PIPERACILLIN/TAZOBACTAM 2.25 GM in 0.9 % SODIUM CHLORIDE Mini-bag 100 ML IVPB ×3 (09:17→20:49)
[2022-09-09 10:42] LABS: Magnesium* 1.3 mg/dL (1.5-2.6)
[2022-09-09] MEDS: ACETAMINOPHEN 325 MG TABLET 975 MG PO (11:34)
[2022-09-09] MEDS: MORPHINE 4 MG/ML INJ IVP ×2 (12:51→17:38)
[2022-09-09 13:57] LABS: Creatine Kinase* 5731 U/L (41-117)
[2022-09-09] MEDS: OXYCODONE (CR) 10 MG TAB.ER.12H PO ×2 (13:57→20:51)
[2022-09-09 14:11] LABS: Troponin I* 0.33 ng/mL (0.01-0.04)
--- NOTE | 2022-09-09 14:22 | P.IMPN_ITS ---
Progress Note: A&P Assessment and plan (1) Recurrent aspiration pneumonia: Status: Acute Assessment and Plan: Still requiring oxygen support. Receiving IV Zosyn and azithromycin. Did receive a single 1 time dose of vancomycin IV in the hospital emergency department. (2) Sepsis with acute hypoxic respiratory failure: Problem details: - likely 2/2 opacities noted in R lung, right toe wound also a consideration - continue Zosyn and Vancomycin (09/08), add Azithromycin (09/09) - continue aggressive fluid resuscitation Status: Acute Assessment and Plan: Requiring additional fluid resuscitation today. Much improved as the day proceeds. (3) Altered mental status: Problem details: - likely 2/2 #1 Status: Acute Assessment and Plan: Multifactorial. In part related to her acute status. Also in part related to chronic daily use of opioids. (4) Dehydration: Status: Acute Assessment and Plan: Slowly improving with additional crystalloid IV fluid administration. (5) Vomiting and diarrhea: Problem details: - appears to be related to viral GI illness and improved in ED, continue IVFs and prn anti-emetics Status: Acute Assessment and Plan: In great measure resolving. (6) Acute kidney injury: Problem details: - outpatient creatinine baseline <1; patient notably had JACK with hospitalization in August as well - likely prerenal 2/2 recent GI illness, in addition to acute respiratory illness - hold nephrotoxins, rehydrate and follow closely Status: Acute Assessment and Plan: Multifactorial including from rhabdomyolysis. (7) Sinus tachycardia: Problem details: Acute on chronic Status: Acute (8) Consolidation of right upper lobe of lung: Status: Acute Assessment and Plan: Treated for aspiration pneumonia. (9) Sleep apnea: Problem details: Has not tolerated CPAP. Had evaluation for inspire and she did not qualify. She has mild nocturnal hypoxia. Opioids are certainly making this worse Status: Acute Assessment and Plan: May use home CPAP. (10) Rhabdomyolysis: Problem details: Continue with IV fluids and monitoring response. Status: Acute Assessment and Plan: 1. Obviously impart driving the acute kidney injury. (11) Demand ischemia of myocardium: Status: Acute Assessment and Plan: Continue monitoring efforts. Interestingly the electrocardiogram suggests the possibility poor R-wave progression laterally, new since ECG 3 weeks ago did not demonstrate that. (12) Declining functional status: Problem details: Patient is having significant functional decline likely due to a combination of chronic opioid therapy and very sedentary lifestyle. Would benefit from PT and OT. 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 (13) Physical deconditioning: Status: Acute Assessment and Plan: Continue supportive efforts. (14) Chronic, continuous use of opioids: Status: Acute Assessment and Plan: Resume schedule opioids. (15) Heart murmur: Problem details: - noted during previous hospitalization, likely exacerbated by dehydrated status - TTE obtained 08/21/22: Final Impressions: 1. Technically limited exam. 2. Normal LV size, moderately increased wall thickness, normal global systolic function with an estimated EF of 65 - 70%. Status: Acute Assessment and Plan: Will repeat echocardiogram to assess for possible new regional wall motion abnormalities in the systolic function. (16) Achalasia: Problem details: - diagnosed during 08/2022 hospitalization Status: Acute Assessment and Plan: Continue with precautions. (17) Hemoptysis: Status: Acute Assessment and Plan: No longer problematic. (18) Polypharmacy: Status: Acute Assessment and Plan: Appears to be a major problem in the home. Will need to continue to dress this. Plan 1. Reviewed with patient and her . 2. Answered their questions. 3. Continue the supportive efforts. Time Spent With Patient Total time spent: 70 minutes Subjective Time Seen by Provider: 08:30 Date Seen: 09/09/22 Interval history: 67-year-old woman presented with altered mental status and increased lethargy. Was found to have recurrent aspiration pneumonia, with tachycardia, hypotension, tachypnea, hypoxemia, pulmonary infiltrate. There was concern that she might have acute blood loss from possible gastrointestinal source. thought she had dark, sticky stools with no obvious overt bright red blood per rectum or hematemesis or hemoptysis. No obvious gross bleeding here in the hospital. Recently discharged from our hospital. According to the patient and her she was doing relatively well at home soon after discharge but then starting 2 days ago she had a a sudden rapid decline. notes how his , the patient, does not always take her medications as prescribed. Sometimes undertakes her medicines, and sometimes over takes her medicines. Exam Narrative: Exam Narrative: When I 1st examined the patient the morning I was literally not able to arouse her. According to the patient's this is not atypical for the patient. Later in the day patient was awake. When awake she is interactive. She attempts to interact meaningfully. Not always able to undertake meaningful interactions however, and sometimes responds to questions posed to her in a non meaningful fashion. She and her are both concerned about the possibility of patient developing opioid withdrawal symptoms given her chronic daily consumption of opioids and the fact that we have not initiated them yet since she has been in the hospital at this time. Const: Vital Signs, click to edit/add: Vital Signs - 24 hr 09/08/22 18:49 09/08/22 18:49 09/08/22 19:07 Temperature 96.2 F L Pulse Rate Pulse Rate [Pulse Oximeter] 97 Pulse Rate [Right Radial] Respiratory Rate 22 Blood Pressure Blood Pressure [Le ft Arm] Blood Pressure [Le ft Forearm] 114/71 Blood Pressure [Ri ght Arm] Pulse Oximetry 100 100 100 Oxygen Delivery Me thod OxyMask OxyMask Oxygen Flow Rate 2 3 09/08/22 19:11 09/08/22 19:12 09/08/22 19:15 Temperature Pulse Rate 98 98 100 Pulse Rate [Pulse Oximeter] Pulse Rate [Right Radial] Respiratory Rate Blood Pressure 90/68 Blood Pressure [Le ft Arm] Blood Pressure [Le ft Forearm] Blood Pressure [Ri ght Arm] Pulse Oximetry 100 100 100 Oxygen Delivery Me thod OxyMask Oxygen Flow Rate 5 09/08/22 19:23 09/08/22 19:30 09/08/22 19:33 Temperature Pulse Rate 99 96 97 Pulse Rate [Pulse Oximeter] Pulse Rate [Right Radial] Respiratory Rate Blood Pressure 78/39 L 91/50 L Blood Pressure [Le ft Arm] Blood Pressure [Le ft Forearm] Blood Pressure [Ri ght Arm] Pulse Oximetry 100 96 93 Oxygen Delivery Me thod Oxygen Flow Rate 09/08/22 19:45 09/08/22 19:54 09/08/22 20:00 Temperature Pulse Rate 100 100 98 Pulse Rate [Pulse Oximeter] Pulse Rate [Right Radial] Respiratory Rate Blood Pressure 108/78 Blood Pressure [Le ft Arm] Blood Pressure [Le ft Forearm] Blood Pressure [Ri ght Arm] Pulse Oximetry 90 94 Oxygen Delivery Me thod Oxygen Flow Rate 09/08/22 20:04 09/08/22 20:11 09/08/22 20:15 Temperature Pulse Rate 98 99 96 Pulse Rate [Pulse Oximeter] Pulse Rate [Right Radial] Respiratory Rate Blood Pressure 101/63 74/44 L Blood Pressure [Le ft Arm] Blood Pressure [Le ft Forearm] Blood Pressure [Ri ght Arm] Pulse Oximetry 95 95 91 Oxygen Delivery Me thod Oxygen Flow Rate 09/08/22 20:22 09/08/22 20:30 09/08/22 21:18 Temperature Pulse Rate 101 H 99 Pulse Rate [Pulse Oximeter] Pulse Rate [Right Radial] Respiratory Rate Blood Pressure 69/40 L 86/35 L Blood Pressure [Le ft Arm] Blood Pressure [Le ft Forearm] Blood Pressure [Ri ght Arm] Pulse Oximetry Oxygen Delivery Me thod OxyMask Oxygen Flow Rate 5 09/08/22 21:21 09/08/22 22:03 09/08/22 22:04 Temperature Pulse Rate 98 110 H 104 H Pulse Rate [Pulse Oximeter] Pulse Rate [Right Radial] Respiratory Rate Blood Pressure 93/63 Blood Pressure [Le ft Arm] Blood Pressure [Le ft Forearm] Blood Pressure [Ri ght Arm] Pulse Oximetry 100 90 95 Oxygen Delivery Me thod Oxygen Flow Rate 09/08/22 22:10 09/08/22 22:11 09/08/22 22:20 Temperature Pulse Rate 105 H 105 H 99 Pulse Rate [Pulse Oximeter] Pulse Rate [Right Radial] Respiratory Rate Blood Pressure 85/68 L Blood Pressure [Le ft Arm] Blood Pressure [Le ft Forearm] Blood Pressure [Ri ght Arm] Pulse Oximetry 90 90 Oxygen Delivery Me thod Oxygen Flow Rate 09/08/22 22:21 09/08/22 22:30 09/08/22 22:31 Temperature Pulse Rate 97 94 94 Pulse Rate [Pulse Oximeter] Pulse Rate [Right Radial] Respiratory Rate Blood Pressure 89/69 L 94/62 Blood Pressure [Le ft Arm] Blood Pressure [Le ft Forearm] Blood Pressure [Ri ght Arm] Pulse Oximetry 97 90 98 Oxygen Delivery Me thod Oxygen Flow Rate 09/08/22 22:40 09/08/22 22:41 09/08/22 22:50 Temperature Pulse Rate 100 103 H 103 H Pulse Rate [Pulse Oximeter] Pulse Rate [Right Radial] Respiratory Rate Blood Pressure 86/25 L Blood Pressure [Le ft Arm] Blood Pressure [Le ft Forearm] Blood Pressure [Ri ght Arm] Pulse Oximetry 94 99 89 Oxygen Delivery Me thod Oxygen Flow Rate 09/08/22 22:53 09/08/22 23:00 09/08/22 23:04 Temperature Pulse Rate 97 101 H 100 Pulse Rate [Pulse Oximeter] Pulse Rate [Right Radial] Respiratory Rate Blood Pressure 100/73 131/85 Blood Pressure [Le ft Arm] Blood Pressure [Le ft Forearm] Blood Pressure [Ri ght Arm] Pulse Oximetry 91 90 86 L Oxygen Delivery Me thod Oxygen Flow Rate 09/08/22 23:10 09/08/22 23:11 09/08/22 23:20 Temperature Pulse Rate 102 H 103 H 97 Pulse Rate [Pulse Oximeter] Pulse Rate [Right Radial] Respiratory Rate Blood Pressure 77/56 L Blood Pressure [Le ft Arm] Blood Pressure [Le ft Forearm] Blood Pressure [Ri ght Arm] Pulse Oximetry 90 92 94 Oxygen Delivery Me thod Oxygen Flow Rate 09/08/22 23:21 09/08/22 23:30 09/08/22 23:32 Temperature Pulse Rate 96 91 91 Pulse Rate [Pulse Oximeter] Pulse Rate [Right Radial] Respiratory Rate Blood Pressure 87/54 L 91/63 Blood Pressure [Le ft Arm] Blood Pressure [Le ft Forearm] Blood Pressure [Ri ght Arm] Pulse Oximetry 95 96 93 Oxygen Delivery Me thod Oxygen Flow Rate 09/08/22 23:33 09/08/22 23:35 09/08/22 23:40 Temperature Pulse Rate 97 96 91 Pulse Rate [Pulse Oximeter] Pulse Rate [Right Radial] Respiratory Rate Blood Pressure Blood Pressure [Le ft Arm] Blood Pressure [Le ft Forearm] Blood Pressure [Ri ght Arm] Pulse Oximetry 90 93 95 Oxygen Delivery Me thod Nasal Cannula Oxygen Flow Rate 3 09/08/22 23:41 09/08/22 23:45 09/08/22 23:50 Temperature Pulse Rate 91 88 86 Pulse Rate [Pulse Oximeter] Pulse Rate [Right Radial] Respiratory Rate Blood Pressure 102/77 Blood Pressure [Le ft Arm] Blood Pressure [Le ft Forearm] Blood Pressure [Ri ght Arm] Pulse Oximetry 95 97 96 Oxygen Delivery Me thod Oxygen Flow Rate 09/08/22 23:51 09/08/22 23:55 09/09/22 00:31 Temperature Pulse Rate 88 90 90 Pulse Rate [Pulse Oximeter] Pulse Rate [Right Radial] Respiratory Rate Blood Pressure 85/60 L Blood Pressure [Le ft Arm] Blood Pressure [Le ft Forearm] Blood Pressure [Ri ght Arm] Pulse Oximetry 96 92 Oxygen Delivery Me thod Oxygen Flow Rate 09/09/22 02:32 09/09/22 01:30 09/09/22 03:00 Temperature 98 F 97.2 F L 97.8 F Pulse Rate Pulse Rate [Pulse Oximeter] Pulse Rate [Right Radial] 102 H 93 102 H Respiratory Rate 16 16 16 Blood Pressure Blood Pressure [Le ft Arm] Blood Pressure [Le ft Forearm] Blood Pressure [Ri ght Arm] 97/60 93/53 L 87/74 L Pulse Oximetry 98 98 Oxygen Delivery Me thod Nasal Cannula Nasal Cannula Oxygen Flow Rate 2 2 09/09/22 03:47 09/09/22 04:16 09/09/22 03:01 Temperature 97.8 F 97.8 F Pulse Rate Pulse Rate [Pulse Oximeter] Pulse Rate [Right Radial] 99 91 Respiratory Rate 18 16 16 Blood Pressure Blood Pressure [Le ft Arm] Blood Pressure [Le ft Forearm] Blood Pressure [Ri ght Arm] 107/96 H 87/74 L Pulse Oximetry 95 95 95 Oxygen Delivery Me thod Nasal Cannula Nasal Cannula Nasal Cannula Oxygen Flow Rate 2 2 2 09/09/22 06:38 09/09/22 00:30 09/09/22 02:00 Temperature 98 F 98 F Pulse Rate Pulse Rate [Pulse Oximeter] Pulse Rate [Right Radial] 104 H 91 103 H Respiratory Rate 18 16 16 Blood Pressure Blood Pressure [Le ft Arm] Blood Pressure [Le ft Forearm] Blood Pressure [Ri ght Arm] 109/23 L 89/47 L 97/60 Pulse Oximetry 98 95 95 Oxygen Delivery Me thod Nasal Cannula Nasal Cannula Nasal Cannula Oxygen Flow Rate 2 2 2 09/09/22 03:30 09/09/22 04:00 09/09/22 04:30 Temperature 98 F 98 F Pulse Rate Pulse Rate [Pulse Oximeter] Pulse Rate [Right Radial] 104 H 102 H 103 H Respiratory Rate 18 16 18 Blood Pressure Blood Pressure [Le ft Arm] Blood Pressure [Le ft Forearm] Blood Pressure [Ri ght Arm] 93/37 L 78/42 L 98/46 L Pulse Oximetry 98 95 97 Oxygen Delivery Me thod Nasal Cannula Nasal Cannula Nasal Cannula Oxygen Flow Rate 2 2 2 09/09/22 01:00 09/09/22 07:00 09/09/22 07:38 Temperature 97.8 F Pulse Rate 103 H Pulse Rate [Pulse Oximeter] Pulse Rate [Right Radial] 90 Respiratory Rate 16 16 Blood Pressure Blood Pressure [Le ft Arm] Blood Pressure [Le ft Forearm] Blood Pressure [Ri ght Arm] 89/58 L Pulse Oximetry 95 98 Oxygen Delivery Me thod Nasal Cannula Nasal Cannula Oxygen Flow Rate 2 2 09/09/22 07:38 09/09/22 07:38 09/09/22 11:41 Temperature 97.6 F Pulse Rate Pulse Rate [Pulse Oximeter] Pulse Rate [Right Radial] 91 91 112 H Respiratory Rate 16 18 Blood Pressure Blood Pressure [Le ft Arm] 79/62 L Blood Pressure [Le ft Forearm] Blood Pressure [Ri ght Arm] 79/53 L Pulse Oximetry 98 Oxygen Delivery Me thod Nasal Cannula Oxygen Flow Rate 2 09/09/22 11:41 Temperature 98.6 F Pulse Rate Pulse Rate [Pulse Oximeter] Pulse Rate [Right Radial] 118 H Respiratory Rate 18 Blood Pressure Blood Pressure [Le ft Arm] Blood Pressure [Le ft Forearm] Blood Pressure [Ri ght Arm] 94/65 Pulse Oximetry 93 Oxygen Delivery Me thod Nasal Cannula Oxygen Flow Rate 2 Labs Labs: Laboratory Results - last 24 hr 09/08/22 09/08/22 09/08/22 18:50 18:50 18:50 WBC 14.84 H RBC 4.57 Hgb 12.4 Hct 38.8 MCV 85 MCH 27 MCHC 32 RDW Coeff of Kaley 14.9 Plt Count 287 Neut % (Auto) 94.4 H Lymph % (Auto) 1.2 L [place] % (Auto) 3.2 Eos % (Auto) 0.0 Baso % (Auto) 0.1 Neut # (Auto) 14.00 H Lymph # (Auto) 0.20 L [place] # (Auto) 0.50 Eos # (Auto) 0.00 Baso # (Auto) 0.00 INR 0.97 APTT 20 L VBG pH VBG pCO2 VBG pO2 VBG HCO3 Sodium Potassium Chloride Carbon Dioxide BUN Creatinine Estimated Creat Clear Estimated GFR Glucose Lactate Calcium Magnesium Total Bilirubin Direct Bilirubin AST ALT Alkaline Phosphatase Ammonia Lactate Baseline 3.7 H Total Creatine Kinase Troponin I C-Reactive Protein NT-Pro-B Natriuret Pep Total Protein Albumin Procalcitonin Stl C.difficile Tox PCR Ethyl Alcohol St C. diff Tox Epid 027 SARS-CoV-2 (PCR) Influenza Type A (PCR) Influenza Type B (PCR) Blood Type Antibody Screen 09/08/22 09/08/22 09/08/22 18:50 18:50 18:50 WBC RBC Hgb Hct MCV MCH MCHC RDW Coeff of Kaley Plt Count Neut % (Auto) Lymph % (Auto) [place] % (Auto) Eos % (Auto) Baso % (Auto) Neut # (Auto) Lymph # (Auto) [place] # (Auto) Eos # (Auto) Baso # (Auto) INR APTT VBG pH 7.285 L VBG pCO2 50 VBG pO2 29.4 VBG HCO3 24 Sodium 135 Potassium 3.4 L Chloride 99 Carbon Dioxide 22 BUN 29 Creatinine 3.4 H Estimated Creat Clear 14.84 Estimated GFR 14 Glucose 127 H Lactate Calcium 9.2 Magnesium Total Bilirubin 0.5 Direct Bilirubin 0.4 AST 164 H ALT 31 Alkaline Phosphatase 111 Ammonia Lactate Baseline Total Creatine Kinase Troponin I C-Reactive Protein 14.9 H NT-Pro-B Natriuret Pep Total Protein 7.6 Albumin 4.3 Procalcitonin 0.83 H Stl C.difficile Tox PCR Ethyl Alcohol < 0.[address] C. diff Tox Epid 027 SARS-CoV-2 (PCR) Influenza Type A (PCR) Influenza Type B (PCR) Blood Type O Negative Antibody Screen NEGATIVE 09/08/22 09/08/22 09/08/22 18:51 18:55 20:30 WBC RBC Hgb Hct MCV MCH MCHC RDW Coeff of Kaley Plt Count Neut % (Auto) Lymph % (Auto) [place] % (Auto) Eos % (Auto) Baso % (Auto) Neut # (Auto) Lymph # (Auto) [place] # (Auto) Eos # (Auto) Baso # (Auto) INR APTT VBG pH VBG pCO2 VBG pO2 VBG HCO3 Sodium Potassium Chloride Carbon Dioxide BUN Creatinine Estimated Creat Clear Estimated GFR Glucose Lactate Calcium Magnesium Total Bilirubin Direct Bilirubin AST ALT Alkaline Phosphatase Ammonia < 9.0 L Lactate Baseline Total Creatine Kinase Troponin I C-Reactive Protein NT-Pro-B Natriuret Pep Total Protein Albumin Procalcitonin Stl C.difficile Tox PCR Negative Ethyl Alcohol St C. diff Tox Epid 027 PRESUMPTIVE NEGATIVE SARS-CoV-2 (PCR) Negative SARS-CoV-2 Influenza Type A (PCR) Negative PCR FLU A Influenza Type B (PCR) Negative PCR FLU B Blood Type Antibody Screen 09/08/22 09/08/22 09/08/22 22:40 22:40 22:40 WBC 11.77 H RBC 3.90 L Hgb 10.6 L Hct 32.9 L MCV 84 MCH 27 MCHC 32 RDW Coeff of Kaley 15.0 Plt Count 260 Neut % (Auto) 93.2 H Lymph % (Auto) 2.2 L [place] % (Auto) 4.2 Eos % (Auto) 0.0 Baso % (Auto) 0.1 Neut # (Auto) 11.00 H Lymph # (Auto) 0.30 L [place] # (Auto) 0.50 Eos # (Auto) 0.00 Baso # (Auto) 0.00 INR APTT VBG pH VBG pCO2 VBG pO2 VBG HCO3 Sodium 134 L Potassium 3.2 L Chloride 100 Carbon Dioxide 24 BUN 31 H Creatinine 3.2 H Estimated Creat Clear 15.77 Estimated GFR 15 Glucose 114 Lactate 1.5 Calcium 8.2 L Magnesium Total Bilirubin Direct Bilirubin AST ALT Alkaline Phosphatase Ammonia Lactate Baseline Total Creatine Kinase 87043 H Troponin I 0.33 H* C-Reactive Protein NT-Pro-B Natriuret Pep Total Protein Albumin Procalcitonin Stl C.difficile Tox PCR Ethyl Alcohol St C. diff Tox Epid 027 SARS-CoV-2 (PCR) Influenza Type A (PCR) Influenza Type B (PCR) Blood Type Antibody Screen 09/09/22 09/09/22 09/09/22 06:00 06:15 06:15 WBC 7.69 RBC 3.35 L Hgb 9.2 L Hct 28.5 L MCV 85 MCH 28 MCHC 32 RDW Coeff of Kaley 14.9 Plt Count 234 Neut % (Auto) 90.7 H Lymph % (Auto) 3.0 L [place] % (Auto) 6.0 Eos % (Auto) 0.1 Baso % (Auto) 0.1 Neut # (Auto) 7.00 Lymph # (Auto) 0.20 L [place] # (Auto) 0.50 Eos # (Auto) 0.01 Baso # (Auto) 0.01 INR APTT VBG pH VBG pCO2 VBG pO2 VBG HCO3 Sodium 136 Potassium 3.3 L Chloride 105 Carbon Dioxide 24 BUN 30 Creatinine 3.2 H Estimated Creat Clear 15.77 Estimated GFR 15 Glucose 98 Lactate 1.5 Calcium 7.7 L Magnesium 1.3 L Total Bilirubin 0.3 Direct Bilirubin AST 179 H ALT 30 Alkaline Phosphatase 85 Ammonia Lactate Baseline Total Creatine Kinase 6856 H Troponin I 0.39 H* C-Reactive Protein 16.3 H NT-Pro-B Natriuret Pep 92339 Total Protein 5.4 L Albumin 2.8 L Procalcitonin 0.81 H Stl C.difficile Tox PCR Ethyl Alcohol St C. diff Tox Epid 027 SARS-CoV-2 (PCR) Influenza Type A (PCR) Influenza Type B (PCR) Blood Type Antibody Screen 09/09/22 09/09/22 09/09/22 06:15 13:28 13:28 WBC RBC Hgb Hct MCV MCH MCHC RDW Coeff of Kaley Plt Count Neut % (Auto) Lymph % (Auto) [place] % (Auto) Eos % (Auto) Baso % (Auto) Neut # (Auto) Lymph # (Auto) [place] # (Auto) Eos # (Auto) Baso # (Auto) INR APTT VBG pH 7.258 L VBG pCO2 51 H VBG pO2 59.7 H VBG HCO3 23 Sodium Potassium Chloride Carbon Dioxide BUN Creatinine Estimated Creat Clear Estimated GFR Glucose Lactate Calcium Magnesium Total Bilirubin Direct Bilirubin AST ALT Alkaline Phosphatase Ammonia Lactate Baseline Total Creatine Kinase 5731 H Troponin I 0.33 H* C-Reactive Protein NT-Pro-B Natriuret Pep Total Protein Albumin Procalcitonin Stl C.difficile Tox PCR Ethyl Alcohol St C. diff Tox Epid 027 SARS-CoV-2 (PCR) Influenza Type A (PCR) Influenza Type B (PCR) Blood Type Antibody Screen
[2022-09-09 15:33] LABS: Potassium* 3.7 mmol/L (3.6-5.1)
[2022-09-09] MEDS: ONDANSETRON 2 MG/ML inj 4 MG IVP (15:42)
--- NOTE | 2022-09-09 15:51 | PC.NURSE ---
Pt up with SBA, walker, and gait belt to chair and bathroom. Pt was up x3 to bathroom, no urine. Bladder scan for 175, Dr. Rangel notified. Pt is chronic 12 year user of oxycontin TID due to rodding in back and pelvis per . Pt confused and rambles on/off through day.
[2022-09-09] MEDS: 0.9 % SODIUM CHLORIDE 500 ML 500 ML IV (17:38)
[2022-09-09] MEDS: LACTATED RINGERS 1000 ML 1,000 ML 150 ML IV (17:45)
--- NOTE | 2022-09-09 17:56 | PC.NURSE ---
Shift Summary 15-19: Patient pleasant and cooperative, up with one assist, walker and gait belt. Had x1 loose BM, green appearance. Has voided 250cc since this morning, MD order for 500cc NS bolus, currently running. Patient c/o pain in left knee and lower back, repositioned and given PRN medication. x1 small emesis about 20cc, given PRN zofran with relief of nausea. Refused dinner but agreeable to snacks and ensure. Currently on 0.5L/NC, maintaining o2 sats >90%.
[2022-09-09] MEDS: BUSPIRONE 10 MG TABLET 15 MG PO (20:50)
[2022-09-09] MEDS: HYDROXYCHLOROQUINE 200 MG TABLET PO (20:51)
[2022-09-10] VITALS (13 sets, daily range): BP systolic 99–127; BP diastolic 44–109; PULSE 88–108; RESP 16–20; TEMP 36.6–36.8; O2SAT 94–99
[2022-09-10] MEDS: 0.9 % SODIUM CHLORIDE 1000 ml 1,000 ML 150 ML IV ×2 (00:47→17:56)
[2022-09-10] MEDS: MORPHINE 4 MG/ML INJ IVP ×2 (01:57→07:14)
[2022-09-10] MEDS: AZITHROMYCIN 500 MG in 0.9 % SODIUM CHLORIDE 250 ml 250 ML 255 MG IVPB (01:58)
[2022-09-10] MEDS: PIPERACILLIN/TAZOBACTAM 2.25 GM in 0.9 % SODIUM CHLORIDE Mini-bag 100 ML IVPB ×4 (04:57→20:54)
[2022-09-10 05:52] LABS: Amphetamine Screen Urine Negative (Negative); Benzodiazepines Screen Urine Negative (Negative); Cannabinoid Screen Urine POSITIVE (Negative); Cocaine Screen Urine Negative (Negative); Methamphetamines Screen Urine Negative (Negative); Opiate Screen Urine POSITIVE (Negative); Oxycodone Screen Urine POSITIVE (Negative); Phencyclidine Screen Urine Negative (Negative); Tricyclic Antidepressant Urine Negative (Negative)
[2022-09-10 05:53] LABS: Barbiturate Screen Urine Negative (Negative); Buprenorphine Screen Urine Negative (Negative); Methadone Screen Urine Negative (Negative)
[2022-09-10] MEDS: LEVOTHYROXINE 75 MCG TABLET 150 MCG PO (06:16)
[2022-09-10] MEDS: HEPARIN 500 UNIT/5 ML SYRINGE IVF ×6 (06:17→16:18)
[2022-09-10] MEDS: SODIUM CHLORIDE 0.9 % (FLUSH) 10 ML SYRINGE 5 ML IVF ×4 (06:18→11:30)
[2022-09-10 06:59] LABS: Appearance Urine Slightly Cloudy (Clear); Bilirubin Urine Negative (Negative); Blood Urine 3+ (Negative); Color Urine Yellow (Yellow); Glucose Urine Negative (Negative); Ketones Urine Negative (Negative); Leukocyte Esterase Urine 1+ (Negative); Nitrite Urine Negative (Negative); Protein Urine 2+ (Negative); Specific Gravity Urine 1.025 (1.000-1.030); Urobilinogen Urine 0.2 (0.2-1.0); pH Urine 5.5 (5.0-8.5)
[2022-09-10 07:10] LABS: Bacteria Urine Few; Squamous Epithelial Cell Urine Moderate (None-Few)
[2022-09-10 07:11] LABS: Amorphous Sediment Urine Moderate
[2022-09-10 07:12] LABS: Coarse Granular Casts Urine Moderate
--- NOTE | 2022-09-10 07:15 | PC.NURSE ---
Pt is pleasant and cooperative. Knows name and bday but otherwise doesn't know where she is or the day month or year. She is up with A of 1 and walker to BSC. Had only 1 loose stool overnight. A UA was gotten and sent to lab. MSO4 4mg IV given x1. BP is stable and improving.
[2022-09-10] MEDS: SODIUM CHLORIDE 0.9 % (FLUSH) 10 ML SYRINGE IVF ×2 (07:38→15:08)
[2022-09-10 07:49] LABS: HCO3 VBG 22 mmol/L (21-28); Lactate* 0.5 mmol/L (0.5-1.9); PCO2 VBG 48 mmHG (40-50); PO2 VBG 50.3 mmHG (25-47); pH VBG 7.257 (7.32-7.43)
[2022-09-10 07:52] LABS: Hematocrit 25.6 % (33.0-51.0); Mean Corpuscular HGB Conc 31 gm/dL (32-36); Mean Corpuscular Hemoglobin 27 pg (26-34); Mean Corpuscular Volume 86 fL (80-100); Platelet Count* 231 K/uL (140-440); Red Blood Count 2.97 m/uL (4.00-5.20); White Blood Count* 6.87 K/uL (4.50-11.00)
[2022-09-10 07:56] LABS: Slide Review Reflex No
[2022-09-10 08:09] LABS: Chloride* 108 mmol/L (96-114)
[2022-09-10 08:10] LABS: Albumin* 2.6 g/dL (3.3-5.0); Potassium* 3.2 mmol/L (3.6-5.1); Sodium* 134 mmol/L (135-149)
[2022-09-10 08:13] LABS: Blood Urea Nitrogen* 30 mg/dL (7-30); Carbon Dioxide* 22 mmol/L (20-32); Creatinine* 2.8 mg/dL (0.5-1.5); Est. Creatinine Clearance* 18.02; Estimated Glomerular Filt Rate 18 ml/min; Glucose* 94 mg/dL (60-115); Phosphorus* 5.5 mg/dL (2.5-4.5)
[2022-09-10 08:14] LABS: Calcium* 7.6 mg/dL (8.4-10.6)
[2022-09-10 08:40] LABS: Creatine Kinase* 2625 U/L (41-117)
[2022-09-10] MEDS: MAGNESIUM IV 2 GM/50 ML PIGGYBACK IVPB (09:12)
[2022-09-10] MEDS: HYDROXYCHLOROQUINE 200 MG TABLET PO ×2 (09:13→20:53)
[2022-09-10] MEDS: BUSPIRONE 10 MG TABLET 15 MG PO ×2 (09:14→20:52)
[2022-09-10] MEDS: DULOXETINE 30 MG CAPSULE DR 120 MG PO (09:14)
[2022-09-10] MEDS: OXYCODONE (CR) 10 MG TAB.ER.12H PO ×3 (09:14→20:53)
[2022-09-10] MEDS: FUROSEMIDE 20 MG TABLET PO (09:14)
[2022-09-10] MEDS: NYSTATIN POWDER 1 APPLIC TOPICAL (09:15)
[2022-09-10] MEDS: PANTOPRAZOLE SODIUM 40 MG INJ IVP (09:15)
[2022-09-10] MEDS: POTASSIUM CHLORIDE 10 MEQ CAPSULE ER 20 MEQ PO ×2 (09:16→11:30)
[2022-09-10] MEDS: LACTATED RINGERS 1000 ML 1,000 ML 150 ML IV (11:10)
[2022-09-10] MEDS: LOPERAMIDE HCL 2 MG CAPSULE PO (13:50)
[2022-09-10 15:20] LABS: Hemoglobin* 8.7 gm/dL (12.0-16.0)
--- NOTE | 2022-09-10 15:49 | PM.IMPN1 ---
Progress Note: A&P Assessment and plan (1) Recurrent aspiration pneumonia: Status: Acute (2) Sepsis with acute hypoxic respiratory failure: Problem details: - likely 2/2 opacities noted in R lung, right toe wound also a consideration - continue Zosyn and Vancomycin (09/08), add Azithromycin (09/09) - continue aggressive fluid resuscitation Status: Acute (3) Altered mental status: Problem details: - likely 2/2 #1 Status: Acute (4) Dehydration: Status: Acute (5) Vomiting and diarrhea: Problem details: - appears to be related to viral GI illness and improved in ED, continue IVFs and prn anti-emetics Status: Acute (6) Acute kidney injury: Problem details: - outpatient creatinine baseline <1; patient notably had JACK with hospitalization in August as well - likely prerenal 2/2 recent GI illness, in addition to acute respiratory illness - hold nephrotoxins, rehydrate and follow closely Status: Acute (7) Sinus tachycardia: Problem details: Acute on chronic Status: Acute (8) Consolidation of right upper lobe of lung: Status: Acute (9) Sleep apnea: Problem details: Has not tolerated CPAP. Had evaluation for inspire and she did not qualify. She has mild nocturnal hypoxia. Opioids are certainly making this worse Status: Acute (10) Rhabdomyolysis: Problem details: Continue with IV fluids and monitoring response. Status: Acute (11) Demand ischemia of myocardium: Status: Acute (12) Declining functional status: Problem details: Patient is having significant functional decline likely due to a combination of chronic opioid therapy and very sedentary lifestyle. Would benefit from PT and OT. 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 Technically limited exam. 2. Normal LV size, moderately increased wall thickness, normal global systolic function with an estimated EF of 65 - 70%. Status: Acute (16) Achalasia: Problem details: - diagnosed during 08/2022 hospitalization Status: Acute (17) Hemoptysis: Status: Acute (18) Polypharmacy: Status: Acute (19) Hypokalemia: Status: Acute (20) Hypoalbuminemia: Status: Acute (21) Hypocalcemia: Status: Acute Plan 1. Reviewed impression with patient. 2. Answered patient's questions. 3. Continue with IV antibiotics. 4. Continue with PT and OT assessment and support. 5. Continue monitor labs. 6. Still not clear if patient can safely return home or she will need short-term transitional care services for rehabilitation efforts. Time Spent With Patient Total time spent: 40 minutes Subjective Time Seen by Provider: 07:30 Date Seen: 09/10/22 Interval history: Hospital day 3. 67-year-old woman presented with altered mental status and increased lethargy. Was found to have recurrent aspiration pneumonia, with tachycardia, hypotension, tachypnea, hypoxemia, pulmonary infiltrate. There was concern that she might have acute blood loss from possible gastrointestinal source. thought she had dark, sticky stools with no obvious overt bright red blood per rectum or hematemesis or hemoptysis. No obvious gross bleeding here in the hospital. Recently discharged from our hospital. According to the patient and her she was doing relatively well at home soon after discharge but then starting 2 days prior to her current hospitalization, she had a sudden, unanticipated rapid decline. Patient indicates she is feeling improved compared to yesterday. Still quite weak. More sense of being awake. Denies dyspnea at rest. Denies chest heaviness, pressure, tightness, or pain. Tolerating increased oral intake. Denies nausea or vomiting. Exam Narrative: Exam Narrative: Still appears disheveled and ill-appearing. Nevertheless, friendly, articulate, cooperative. Not acutely ill at this juncture. Sitting upright in the chair beside her bed. Still has oxygen on with nasal cannula supplementation. Saturations much improved with values in the mid to upper 90s at rest with oxygen supplementation. Alert, oriented to self, place, in part to time, and in part to situation. Mood and affect are congruent. Skin is pale. No petechiae, rashes, jaundice, or cyanosis. Neck is supple. No obvious JVD or hepatojugular reflux. Does have a full neck. Lungs in great measure clear to auscultation save decreased breath sounds in both bases. Abdomen is obese with active bowel sounds, soft, nontender. Trace edema left lower extremity, none on the right. Able to help with transfer efforts. No focal motor neurologic deficit. Const: Vital Signs, click to edit/add: Vital Signs - 24 hr 09/09/22 15:08 09/09/22 16:16 09/09/22 16:16 Temperature 98.6 F Pulse Rate 109 H Pulse Rate [Right Radial] 109 H Respiratory Rate 20 20 Blood Pressure [Le ft Arm] 134/76 Blood Pressure [Ri ght Arm] Pulse Oximetry 99 99 Oxygen Delivery Me thod Nasal Cannula Nasal Cannula Oxygen Flow Rate 2 2 Fraction of Inspir ed Oxygen 09/09/22 20:22 09/09/22 23:00 09/10/22 00:01 Temperature 98.7 F 9.4 F L Pulse Rate 106 H Pulse Rate [Right Radial] 106 H 106 H Respiratory Rate 18 18 Blood Pressure [Le ft Arm] 116/61 Blood Pressure [Ri ght Arm] 121/55 L Pulse Oximetry 96 96 Oxygen Delivery Me thod Nasal Cannula Nasal Cannula Oxygen Flow Rate 0.5 Fraction of Inspir ed Oxygen 2 09/09/22 20:05 09/09/22 23:00 09/10/22 03:00 Temperature 98.3 F Pulse Rate 106 H Pulse Rate [Right Radial] 106 H Respiratory Rate 18 20 Blood Pressure [Le ft Arm] 114/54 L Blood Pressure [Ri ght Arm] Pulse Oximetry 97 95 Oxygen Delivery Me thod Nasal Cannula Nasal Cannula Oxygen Flow Rate 2 1.5 Fraction of Inspir ed Oxygen 09/10/22 05:20 09/10/22 07:25 09/10/22 07:29 Temperature 98.1 F Pulse Rate Pulse Rate [Right Radial] 100 Respiratory Rate 20 18 18 Blood Pressure [Le ft Arm] Blood Pressure [Ri ght Arm] 121/109 H Pulse Oximetry 95 94 94 Oxygen Delivery Me thod Nasal Cannula Nasal Cannula Nasal Cannula Oxygen Flow Rate 2 2 2 Fraction of Inspir ed Oxygen 09/10/22 08:14 09/10/22 11:00 Temperature 98.1 F Pulse Rate 103 H Pulse Rate [Right Radial] 103 H Respiratory Rate 20 Blood Pressure [Le ft Arm] 101/69 Blood Pressure [Ri ght Arm] Pulse Oximetry 95 Oxygen Delivery Me thod Nasal Cannula Oxygen Flow Rate 1.5 Fraction of Inspir ed Oxygen Documenting provider has reviewed patient's vital signs: yes Labs Labs: Laboratory Results - last 24 hr 09/08/22 09/09/22 09/10/22 18:51 13:28 04:55 WBC RBC Hgb Hct MCV MCH MCHC Plt Count VBG pH VBG pCO2 VBG pO2 VBG HCO3 Sodium Potassium 3.7 Chloride Carbon Dioxide BUN Creatinine Estimated Creat Clear Estimated GFR Glucose Lactate Calcium Phosphorus Total Creatine Kinase Troponin I Albumin Urine Color Yellow Urine Appearance Slightly Cloudy A Urine pH 5.5 Ur Specific [place] 1.025 Urine Protein 2+ A Urine Glucose (UA) Negative Urine Ketones Negative Urine Blood 3+ A Urine Nitrite Negative Urine Bilirubin Negative Urine Urobilinogen 0.2 Ur Leukocyte Esterase 1+ A Urine RBC 2-5 A Urine WBC 10-25 A Ur Squamous Epith Cells Moderate A Amorphous Sediment Moderate A Urine Bacteria Few A Coarse Granular Casts Moderate A Urine Opiates Screen POSITIVE A* Ur Buprenorphine Scrn Negative Ur Oxycodone Screen POSITIVE A* Urine Methadone Screen Negative Ur Propoxyphene Screen Negative Ur Barbiturates Screen Negative U Tricyclic Antidepress Negative Ur Phencyclidine Scrn Negative Ur Amphetamines Screen Negative U Methamphetamines Scrn Negative U Benzodiazepines Scrn Negative Urine Cocaine Screen Negative U Marijuana (THC) Screen POSITIVE A* Ur Drug Screen Comment See Note 09/10/22 09/10/22 09/10/22 07:43 07:43 07:43 WBC 6.87 RBC 2.97 L Hgb 8.0 L Hct 25.6 L MCV 86 MCH 27 MCHC 31 L Plt Count 231 VBG pH 7.257 L VBG pCO2 48 VBG pO2 50.3 H VBG HCO3 22 Sodium 134 L Potassium 3.2 L Chloride 108 Carbon Dioxide 22 BUN 30 Creatinine 2.8 H Estimated Creat Clear 18.02 Estimated GFR 18 Glucose 94 Lactate 0.5 Calcium 7.6 L Phosphorus 5.5 H Total Creatine Kinase 2625 H Troponin I 0.20 H* Albumin 2.6 L Urine Color Urine Appearance Urine pH Ur Specific [place] Urine Protein Urine Glucose (UA) Urine Ketones Urine Blood Urine Nitrite Urine Bilirubin Urine Urobilinogen Ur Leukocyte Esterase Urine RBC Urine WBC Ur Squamous Epith Cells Amorphous Sediment Urine Bacteria Coarse Granular Casts Urine Opiates Screen Ur Buprenorphine Scrn Ur Oxycodone Screen Urine Methadone Screen Ur Propoxyphene Screen Ur Barbiturates Screen U Tricyclic Antidepress Ur Phencyclidine Scrn Ur Amphetamines Screen U Methamphetamines Scrn U Benzodiazepines Scrn Urine Cocaine Screen U Marijuana (THC) Screen Ur Drug Screen Comment 09/10/22 15:11 WBC RBC Hgb 8.7 L Hct MCV MCH MCHC Plt Count VBG pH VBG pCO2 VBG pO2 VBG HCO3 Sodium Potassium Chloride Carbon Dioxide BUN Creatinine Estimated Creat Clear Estimated GFR Glucose Lactate Calcium Phosphorus Total Creatine Kinase Troponin I Albumin Urine Color Urine Appearance Urine pH Ur Specific [place] Urine Protein Urine Glucose (UA) Urine Ketones Urine Blood Urine Nitrite Urine Bilirubin Urine Urobilinogen Ur Leukocyte Esterase Urine RBC Urine WBC Ur Squamous Epith Cells Amorphous Sediment Urine Bacteria Coarse Granular Casts Urine Opiates Screen Ur Buprenorphine Scrn Ur Oxycodone Screen Urine Methadone Screen Ur Propoxyphene Screen Ur Barbiturates Screen U Tricyclic Antidepress Ur Phencyclidine Scrn Ur Amphetamines Screen U Methamphetamines Scrn U Benzodiazepines Scrn Urine Cocaine Screen U Marijuana (THC) Screen Ur Drug Screen Comment
[2022-09-10 15:52] LABS: Potassium* 3.5 mmol/L (3.6-5.1)
--- NOTE | 2022-09-10 16:54 | PC.NURSE ---
Shift Summary: Patient pleasant and cooperative. Up with one assist, walker and gait belt. Voiding frequently. Pain well managed with scheduled medication. Vitals stable, denies SOB, continues to use o2 @ 1.5L/NC while awake, when taking a nap patient needed 2L/NC. Tolerating regular diet, appetite has improved today. x3 olayinka SALAZAR MD updated with new orders.
[2022-09-10] MEDS: ACETAMINOPHEN 325 MG TABLET 975 MG PO (22:56)
[2022-09-11] MEDS: LACTATED RINGERS 1000 ML 1,000 ML 150 ML IV (01:10)
[2022-09-11] MEDS: MORPHINE 4 MG/ML INJ IVP (01:24)
[2022-09-11] MEDS: SODIUM CHLORIDE 0.9 % (FLUSH) 10 ML SYRINGE 5 ML IVF ×6 (01:26→20:30)
[2022-09-11] MEDS: AZITHROMYCIN 500 MG in 0.9 % SODIUM CHLORIDE 250 ml 250 ML 255 MG IVPB (01:30)
[2022-09-11] MEDS: PIPERACILLIN/TAZOBACTAM 2.25 GM in 0.9 % SODIUM CHLORIDE Mini-bag 100 ML IVPB ×3 (02:41→15:07)
[2022-09-11 03:00] VITALS: BP 107/54; PULSE 88; PULSE 91; RESP 18; TEMP 36.4; O2SAT 97
[2022-09-11] MEDS: HEPARIN 500 UNIT/5 ML SYRINGE IVF ×4 (05:57→16:15)
[2022-09-11] MEDS: LEVOTHYROXINE 75 MCG TABLET 150 MCG PO (05:58)
[2022-09-11 06:07] LABS: Hematocrit 25.9 % (33.0-51.0); Hemoglobin* 8.2 gm/dL (12.0-16.0); Mean Corpuscular HGB Conc 32 gm/dL (32-36); Mean Corpuscular Hemoglobin 27 pg (26-34); Mean Corpuscular Volume 87 fL (80-100); Platelet Count* 250 K/uL (140-440); Red Blood Count 2.99 m/uL (4.00-5.20); White Blood Count* 6.11 K/uL (4.50-11.00)
[2022-09-11 06:09] LABS: Slide Review Reflex No
[2022-09-11 06:20] LABS: Albumin* 2.7 g/dL (3.3-5.0); Chloride* 110 mmol/L (96-114); Potassium* 3.4 mmol/L (3.6-5.1); Sodium* 138 mmol/L (135-149)
[2022-09-11 06:23] LABS: Blood Urea Nitrogen* 25 mg/dL (7-30); Calcium* 8.1 mg/dL (8.4-10.6); Carbon Dioxide* 24 mmol/L (20-32); Creatine Kinase* 900 U/L (41-117); Creatinine* 2.1 mg/dL (0.5-1.5); Est. Creatinine Clearance* 24.03; Estimated Glomerular Filt Rate 26 ml/min; Glucose* 91 mg/dL (60-115); Magnesium* 1.5 mg/dL (1.5-2.6); Phosphorus* 4.6 mg/dL (2.5-4.5)
--- NOTE | 2022-09-11 06:57 | PC.NURSE ---
Shift note: Pt has been on 1L of oxygen, doing well with A1, GB and walker.Complained of pain level of 8 and pain med given as prescribed. Blood sample obtained from the central venous catheter and heparin locked.
[2022-09-11 07:00] VITALS: BP 134/84; PULSE 107; PULSE 95; RESP 18; TEMP 36.7; O2SAT 91
[2022-09-11] MEDS: PANTOPRAZOLE SODIUM 40 MG INJ IVP (08:15)
[2022-09-11] MEDS: BUSPIRONE 10 MG TABLET 15 MG PO ×2 (09:10→20:29)
[2022-09-11] MEDS: FUROSEMIDE 20 MG TABLET PO (09:12)
[2022-09-11] MEDS: DULOXETINE 30 MG CAPSULE DR 120 MG PO (09:12)
[2022-09-11] MEDS: POTASSIUM CHLORIDE 10 MEQ CAPSULE ER 20 MEQ PO (09:12)
[2022-09-11] MEDS: HYDROXYCHLOROQUINE 200 MG TABLET PO ×2 (09:13→20:29)
[2022-09-11] MEDS: OXYCODONE (CR) 10 MG TAB.ER.12H PO ×3 (09:13→20:29)
[2022-09-11] MEDS: ONDANSETRON 2 MG/ML inj 4 MG IVP (09:46)
[2022-09-11 11:00] VITALS: BP 107/42; PULSE 99; RESP 18; TEMP 36.8; O2SAT 96
[2022-09-11] MEDS: POTASSIUM CHLORIDE 10 MEQ CAPSULE ER 40 MEQ PO (11:30)
[2022-09-11] MEDS: LOPERAMIDE HCL 2 MG CAPSULE PO (13:58)
[2022-09-11] MEDS: ACETAMINOPHEN 325 MG TABLET 975 MG PO (13:58)
--- NOTE | 2022-09-11 13:59 | PC.SOCIAL ---
Discharge Planning: Pt indicates that she resides in [facility] with her spouse and receives no services. Pt understands recommendations for short term rehab stay at time of discharge but does not know if that is the route that she would like to take for herself, noting that she has utilized 5 SNFs following hospitalizations in the past and expresses displeasure with her experiences (noting SNFs in the city area but that the least problematic was [facility]). Pt reports that she does not remember utilizing home care services in the past. Pt explains that her spouse doesn't want her to go to facility either but that she does not want to be a burden for him. Decision made together today to research SNF bed availability. [facility] in [place] has bed availability, as does [facility] in [place], and referrals faxed for consideration. Messages left at [facility] and [facility]. SW will continue to follow for d/c planning.
[2022-09-11 15:00] VITALS: BP 165/106; PULSE 101; PULSE 18; RESP 18; TEMP 36.8; O2SAT 92
--- NOTE | 2022-09-11 15:19 | PM.IMPN1 ---
Progress Note: A&P Assessment and plan (1) Recurrent aspiration pneumonia: Status: Acute Assessment and Plan: 1. Stop the IV piperacillin and tazobactam. 2. Stop the IV azithromycin. 3. Start oral Augmentin b.i.d.. 4. 1 more dose of oral azithromycin 20 50 mg. 5. Await urine Legionella. (2) Sepsis with acute hypoxic respiratory failure: Problem details: - likely 2/2 opacities noted in R lung, right toe wound also a consideration - continue Zosyn and Vancomycin (09/08), add Azithromycin (09/09) - much improved with aggressive fluid resuscitation Status: Acute (3) Altered mental status: Problem details: Normalizing Status: Acute (4) Dehydration: Status: Acute Assessment and Plan: Saline lock IV. (5) Vomiting and diarrhea: Problem details: - appears to be related to viral GI illness and improved in ED, continue IVFs and prn anti-emetics Status: Acute Assessment and Plan: Improving. Tolerating oral intake. Will seemingly resolved at this juncture. (6) Acute kidney injury: Problem details: - outpatient creatinine baseline <1; patient notably had JACK with hospitalization in August as well - likely prerenal 2/2 recent GI illness, in addition to acute respiratory illness - hold nephrotoxins, rehydrate and follow closely Status: Acute Assessment and Plan: Admission creatinine 3.4. Today creatinine down to 2.1. (7) Sinus tachycardia: Problem details: Acute on chronic Status: Acute (8) Consolidation of right upper lobe of lung: Status: Acute (9) Sleep apnea: Problem details: Has not tolerated CPAP. Had evaluation for inspire and she did not qualify. She has mild nocturnal hypoxia. Opioids are certainly making this worse Status: Acute (10) Rhabdomyolysis: Problem details: Saline lock IV and monitor response. Creatine kinase down to 900 on 09/11/2022. Status: Acute (11) Demand ischemia of myocardium: Problem details: Troponin I max 0.39, normalizing Status: Acute (12) Declining functional status: Problem details: Patient is having significant functional decline likely due to a combination of chronic opioid therapy and very sedentary lifestyle. Would benefit from PT and OT. 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 (13) Physical deconditioning: Status: Acute (14) Chronic, continuous use of opioids: Problem details: Continue with current chronic treatment plan Status: Acute (15) Heart murmur: Problem details: - noted during previous hospitalization, likely exacerbated by dehydrated status - TTE obtained 08/21/22: Final Impressions: 1. Technically limited exam. 2. Normal LV size, moderately increased wall thickness, normal global systolic function with an estimated EF of 65 - 70%. - transthoracic echocardiogram obtained 09/09/2022: 1. Mild left ventricular outlet obstruction in hyperdynamic state. 2. No regional motion abnormalities Status: Acute (16) Achalasia: Problem details: - diagnosed during 08/2022 hospitalization Status: Acute Assessment and Plan: Doing well with current diet. (17) Hemoptysis: Problem details: No apparent problems since in hospital. Status: Acute (18) Polypharmacy: Status: Acute (19) Hypokalemia: Problem details: Improved with replacement therapy Status: Acute (20) Hypoalbuminemia: Problem details: In part related to acute illness and possibly also melena or standing Status: Acute (21) Hypocalcemia: Problem details: Resolved Status: Acute (22) Volume overload state of heart: Problem details: On 09/11/2022, weight 106.3 kg. 09/09/2022, weight 100.2 kg. Status: Acute Assessment and Plan: Saline lock IV today. Consider diuresis. Plan 1. Reviewed with patient 2. Answered her questions 3. Switch from IV to oral antibiotics 4. Continue with efforts to encourage her to increase her activities as tolerated 5. Continue with efforts to courage her to resume oral intake Time Spent With Patient Total time spent: 40 minutes Subjective Time Seen by Provider: 08:15 Date Seen: 09/11/22 Interval history: Hospital day 4. 67-year-old woman presented with altered mental status and increased lethargy. Was found to have recurrent aspiration pneumonia, with tachycardia, hypotension, tachypnea, hypoxemia, pulmonary infiltrate. There was concern that she might have acute blood loss from possible gastrointestinal source. thought she had dark, sticky stools with no obvious overt bright red blood per rectum or hematemesis or hemoptysis. No obvious gross bleeding here in the hospital. Recently discharged from our hospital. According to the patient and her she was doing relatively well at home soon after discharge but then starting 2 days prior to her current hospitalization, she had a sudden, unanticipated rapid decline. Patient indicates she is feeling improved compared to yesterday. Less complain of weakness. More awake, interactive, and active. Denies dyspnea at rest. Denies chest heaviness, pressure, tightness, or pain. Tolerating increased oral intake. Denies nausea or vomiting. Exam Narrative: Exam Narrative: Appears comfortable, no acute distress. Alert, oriented to self, place, time, situation. Friendly, cooperative. Still having some difficulty with word-finding but is noticeably improved compared to yesterday. Much less stuttering. Minimal rales, stable. No wheezing or rhonchi. Heart tones distant but regular. Abdomen with active bowel sounds, soft, nontender. Independent transfer, station, and gait. No focal motor neurologic deficits. Const: Vital Signs, click to edit/add: Vital Signs - 24 hr 09/10/22 16:07 09/10/22 16:08 09/10/22 16:11 Temperature 98.2 F Pulse Rate 100 Pulse Rate [Right Radial] 100 Respiratory Rate 18 18 Blood Pressure [Le ft Arm] Blood Pressure [Ri ght Arm] 110/44 L Pulse Oximetry 94 94 Oxygen Delivery Me thod Nasal Cannula Nasal Cannula Oxygen Flow Rate 1.5 1.5 09/10/22 19:00 09/10/22 22:18 09/10/22 23:00 Temperature 98.2 F 97.9 F Pulse Rate Pulse Rate [Right Radial] 108 H 99 Respiratory Rate 16 16 18 Blood Pressure [Le ft Arm] Blood Pressure [Ri ght Arm] 127/88 123/69 Pulse Oximetry 96 96 99 Oxygen Delivery Me thod Nasal Cannula Nasal Cannula Nasal Cannula Oxygen Flow Rate 1.5 1.5 1 09/10/22 23:00 09/10/22 23:00 09/11/22 03:00 Temperature 98 F Pulse Rate 94 Pulse Rate [Right Radial] 88 88 Respiratory Rate 18 Blood Pressure [Le ft Arm] 99/65 Blood Pressure [Ri ght Arm] Pulse Oximetry 96 Oxygen Delivery Me thod Nasal Cannula Oxygen Flow Rate 1 09/11/22 03:00 09/11/22 07:00 09/11/22 07:00 Temperature 97.6 F 98.1 F Pulse Rate 107 H Pulse Rate [Right Radial] 91 95 Respiratory Rate 18 18 Blood Pressure [Le ft Arm] 107/54 L Blood Pressure [Ri ght Arm] 134/84 Pulse Oximetry 97 91 Oxygen Delivery Me thod Nasal Cannula Room Air Oxygen Flow Rate 1 09/11/22 07:00 09/11/22 07:00 09/11/22 11:00 Temperature 98.3 F Pulse Rate Pulse Rate [Right Radial] 95 99 Respiratory Rate 18 18 18 Blood Pressure [Le ft Arm] Blood Pressure [Ri ght Arm] 107/42 L Pulse Oximetry 91 96 Oxygen Delivery Me thod Room Air Room Air Oxygen Flow Rate Documenting provider has reviewed patient's vital signs: yes Labs Labs: Laboratory Results - last 24 hr 09/10/22 09/10/22 09/11/22 15:11 15:11 05:45 WBC 6.11 RBC 2.99 L Hgb 8.7 L 8.2 L Hct 25.9 L MCV 87 MCH 27 MCHC 32 Plt Count 250 Sodium Potassium 3.5 L Chloride Carbon Dioxide BUN Creatinine Estimated Creat Clear Estimated GFR Glucose Calcium Ionized Calcium [place] Phosphorus Magnesium Total Creatine Kinase Albumin 09/11/22 09/11/22 05:45 05:45 WBC RBC Hgb Hct MCV MCH MCHC Plt Count Sodium 138 Potassium 3.4 L Chloride 110 Carbon Dioxide 24 BUN 25 Creatinine 2.1 H Estimated Creat Clear 24.03 Estimated GFR 26 Glucose 91 Calcium 8.1 L Ionized Calcium [place]amar 1.20 Phosphorus 4.6 H Magnesium 1.5 Total Creatine Kinase 900 H Albumin 2.7 L
[2022-09-11] MEDS: SODIUM CHLORIDE 0.9 % (FLUSH) 10 ML SYRINGE IVF (16:15)
[2022-09-11] MEDS: AMOXICILLIN/CLAVULANATE 500 mg/125 mg TABLET PO (17:51)
--- NOTE | 2022-09-11 18:20 | PC.NURSE ---
End of Shift: Patient pleasant and cooperative, Alert and oriented. Patient standby/walker. Patient vitally stable, lungs currently clear but with expiratory wheezes earlier in the day, BS WNL, jugular central line SL and intact. Patient always rates pain 8-9/10, tylenol given once, along with schedule oxy. Patient urinating and tolerating regular, but has not felt well both after breakfast and dinner, no lunch for patient. Zophran was given once for nausea. Patient has been up to chair for meals. Patient tele=Sinus Tach. Patient had 1 small loose stool today, patient requested imodium.
[2022-09-11 19:00] VITALS: BP 105/78; PULSE 99; RESP 18; TEMP 36.7; O2SAT 94
[2022-09-11 23:00] VITALS: BP 111/71; PULSE 95; PULSE 99; RESP 18; TEMP 36.6; O2SAT 94
[2022-09-12] VITALS (8 sets, daily range): BP systolic 118–160; BP diastolic 75–105; PULSE 88–100; RESP 16–18; TEMP 36.7–36.9; O2SAT 90–97
[2022-09-12] MEDS: MORPHINE 4 MG/ML INJ IVP (03:14)
--- NOTE | 2022-09-12 05:41 | PC.NURSE ---
Shift note: Pt is doing well except persistent complain of pain rated at 9. Ambulate with A1, walker and GB. No diarrhea and N/V reported.
[2022-09-12] MEDS: HEPARIN 500 UNIT/5 ML SYRINGE IVF ×4 (06:04→18:06)
[2022-09-12] MEDS: LEVOTHYROXINE 75 MCG TABLET 150 MCG PO (06:04)
[2022-09-12 08:58] LABS: Hematocrit 31.3 % (33.0-51.0); Hemoglobin* 9.8 gm/dL (12.0-16.0); Mean Corpuscular HGB Conc 31 gm/dL (32-36); Mean Corpuscular Hemoglobin 27 pg (26-34); Mean Corpuscular Volume 86 fL (80-100); Platelet Count* 323 K/uL (140-440); Red Blood Count 3.64 m/uL (4.00-5.20); White Blood Count* 8.08 K/uL (4.50-11.00)
[2022-09-12 09:00] LABS: Slide Review Reflex No
[2022-09-12] MEDS: LOPERAMIDE HCL 2 MG CAPSULE PO ×4 (09:07→22:15)
[2022-09-12] MEDS: OXYCODONE (CR) 10 MG TAB.ER.12H PO ×3 (09:08→20:33)
[2022-09-12] MEDS: AZITHROMYCIN 250 MG TABLET PO (09:08)
[2022-09-12] MEDS: DULOXETINE 30 MG CAPSULE DR 120 MG PO (09:08)
[2022-09-12] MEDS: POTASSIUM CHLORIDE 10 MEQ CAPSULE ER 20 MEQ PO (09:08)
[2022-09-12] MEDS: BUSPIRONE 10 MG TABLET 15 MG PO ×2 (09:09→20:32)
[2022-09-12] MEDS: HYDROXYCHLOROQUINE 200 MG TABLET PO ×2 (09:09→20:32)
[2022-09-12] MEDS: PANTOPRAZOLE SODIUM 40 MG INJ IVP (09:09)
[2022-09-12] MEDS: AMOXICILLIN/CLAVULANATE 500 mg/125 mg TABLET PO ×2 (09:10→18:04)
[2022-09-12] MEDS: FUROSEMIDE 10 MG/ML inj 40 MG IVP (09:10)
[2022-09-12] MEDS: SODIUM CHLORIDE 0.9 % (FLUSH) 10 ML SYRINGE 5 ML IVF ×2 (09:11→20:34)
[2022-09-12 09:13] LABS: Chloride* 110 mmol/L (96-114)
[2022-09-12 09:14] LABS: Albumin* 3.4 g/dL (3.3-5.0); Potassium* 4.2 mmol/L (3.6-5.1); Sodium* 140 mmol/L (135-149)
[2022-09-12 09:17] LABS: Blood Urea Nitrogen* 17 mg/dL (7-30); Calcium* 8.9 mg/dL (8.4-10.6); Carbon Dioxide* 26 mmol/L (20-32); Creatine Kinase* 286 U/L (41-117); Creatinine* 1.3 mg/dL (0.5-1.5); Est. Creatinine Clearance* 38.82; Estimated Glomerular Filt Rate 46 ml/min; Glucose* 101 mg/dL (60-115); Phosphorus* 3.4 mg/dL (2.5-4.5)
[2022-09-12 09:30] LABS: NT Pro B Type NatriureticPept* 10400 pg/mL
[2022-09-12] MEDS: LACTOBACILLUS ACIDOPHILUS 1 TABLET 2 TAB PO ×2 (13:26→18:05)
--- NOTE | 2022-09-12 16:20 | PM.IMPN1 ---
Progress Note: A&P Assessment and plan (1) Recurrent aspiration pneumonia: Status: Acute (2) Sepsis with acute hypoxic respiratory failure: Problem details: - likely 2/2 opacities noted in R lung - continue Zosyn and Vancomycin (09/08), add Azithromycin (09/09) - much improved with aggressive fluid resuscitation Status: Acute (3) Altered mental status: Problem details: Normalized Status: Acute (4) Dehydration: Problem details: Normalized Status: Acute (5) Vomiting and diarrhea: Problem details: - she had this when she 1st presented to the hospital which was thought to be related to viral GI illness and improved in ED. Nausea has since resolved. One episode of diarrhea today. Status: Acute Assessment and Plan: Continue with p.r.n. Imodium. (6) Acute kidney injury: Problem details: - outpatient creatinine baseline <1; patient notably had JACK with hospitalization in August as well - likely prerenal 2/2 recent GI illness, in addition to acute respiratory illness - hold nephrotoxins, rehydrate and follow closely, creatinine 09/12/2022 finally down to 1.3 Status: Acute Assessment and Plan: Saline lock IV (7) Sinus tachycardia: Problem details: Acute on chronic Status: Acute (8) Consolidation of right upper lobe of lung: Status: Acute (9) Sleep apnea: Problem details: Has not tolerated CPAP. Had evaluation for inspire and she did not qualify. She has mild nocturnal hypoxia. Opioids are certainly making this worse Status: Acute (10) Rhabdomyolysis: Problem details: Saline lock IV and monitor response. Creatine kinase 10,000 on presentation, down to 900 on 09/11/2022, and 286 on 09/12/2022. Status: Acute Assessment and Plan: Saline lock IV (11) Demand ischemia of myocardium: Problem details: Troponin I max 0.39, normalizing Status: Acute (12) Declining functional status: Problem details: Patient is having significant functional decline likely due to a combination of chronic opioid therapy and very sedentary lifestyle. 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 Status: Acute (13) Physical deconditioning: Status: Acute (14) Chronic, continuous use of opioids: Problem details: Continue with current chronic treatment plan Status: Acute (15) Heart murmur: Problem details: - noted during previous hospitalization, likely exacerbated by dehydrated status - TTE obtained 08/21/22: Final Impressions: 1. Technically limited exam. 2. Normal LV size, moderately increased wall thickness, normal global systolic function with an estimated EF of 65 - 70%. - transthoracic echocardiogram obtained 09/09/2022: 1. Mild left ventricular outlet obstruction in hyperdynamic state. 2. No regional motion abnormalities Status: Acute (16) Achalasia: Problem details: - diagnosed during 08/2022 hospitalization, likely cause of her aspiration Status: Acute (17) Hemoptysis: Problem details: No apparent problems since in hospital. Status: Acute (18) Polypharmacy: Problem details: This is a major concern as expressed by her should she return home. Status: Acute (19) Hypokalemia: Problem details: Improved with replacement therapy Status: Acute (20) Hypoalbuminemia: Problem details: In part related to acute illness and possibly also melena or standing Status: Acute (21) Hypocalcemia: Problem details: Resolved Status: Acute (22) Volume overload state of heart: Problem details: On 09/12/2022 weight 105.7 kg. On 09/11/2022, weight 106.3 kg. 09/09/2022, weight 100.2 kg. Status: Acute Assessment and Plan: Responding well to diuresis efforts. Plan 1. Continue with stabilization efforts. 2. Switch him IV antibiotics to oral Augmentin. 3. Lactobacillus acidophilus C diff prophylaxis. 4. Should her diarrhea be persistent, will need to check stool for C diff. 5. Should her condition continue to be stable it is possible she may be ready for discharge sometime in next 24-48 hours Time Spent With Patient Total time spent: 40 minutes Subjective Time Seen by Provider: 09:00 Date Seen: 09/12/22 Interval history: Hospital day 5. 67-year-old woman presented with altered mental status and increased lethargy. Was found to have recurrent aspiration pneumonia, with tachycardia, hypotension, tachypnea, hypoxemia, pulmonary infiltrate. There was concern that she might have acute blood loss from possible gastrointestinal source. thought she had dark, sticky stools with no obvious overt bright red blood per rectum or hematemesis or hemoptysis. No obvious gross bleeding here in the hospital. Recently discharged from our hospital. According to the patient and her she was doing relatively well at home soon after discharge but then starting 2 days prior to her current hospitalization, she had a sudden, unanticipated rapid decline. Less complaint of weakness when she 1st workup today. She had an episode of diarrhea however, and since then she has noted more weakness. Nothing focal. Generally more awake, interactive, and active. Notes that the diarrhea is a chronic intermittent problem for which she uses Imodium at home on a regular basis. She blames the nursing staff for not given her more Imodium to prevent this episode of diarrhea that she had, for this is what she would have done at home. No bloody stools. Denies dyspnea at rest. Denies chest heaviness, pressure, tightness, or pain. Tolerating increased oral intake. Denies nausea or vomiting. Exam Narrative: Exam Narrative: Appears comfortable and in no acute distress. Appears somewhat anxious. Alert and oriented to self, place, time, situation. Lung sounds are actually improving. Heart tones with regular rhythm. Abdomen with active bowel sounds, soft, nontender. Trace edema left lower extremity, unchanged. Better able to move about. Const: Vital Signs, click to edit/add: Vital Signs - 24 hr 09/11/22 19:00 09/11/22 23:00 09/11/22 23:00 Temperature 98.1 F Pulse Rate Pulse Rate [Right Radial] 99 99 Respiratory Rate 18 18 Blood Pressure [Le ft Arm] 105/78 Blood Pressure [Ri ght Arm] Pulse Oximetry 94 94 Oxygen Delivery Me thod Nasal Cannula Nasal Cannula Oxygen Flow Rate 1 1 09/11/22 23:00 09/11/22 23:00 09/12/22 03:00 Temperature 98 F 98.1 F Pulse Rate 95 Pulse Rate [Right Radial] 99 99 Respiratory Rate 18 18 Blood Pressure [Le ft Arm] 111/71 142/96 H Blood Pressure [Ri ght Arm] Pulse Oximetry 94 95 Oxygen Delivery Me thod Nasal Cannula Nasal Cannula Oxygen Flow Rate 1 1 09/12/22 09:15 09/12/22 09:15 09/12/22 09:15 Temperature 98.1 F Pulse Rate Pulse Rate [Right Radial] 96 100 Respiratory Rate 18 18 18 Blood Pressure [Le ft Arm] Blood Pressure [Ri ght Arm] 160/105 H Pulse Oximetry 97 97 Oxygen Delivery Me thod Room Air Room Air Oxygen Flow Rate 09/12/22 09:45 09/12/22 14:00 09/12/22 15:00 Temperature 98.3 F Pulse Rate 100 Pulse Rate [Right Radial] 90 Respiratory Rate 18 Blood Pressure [Le ft Arm] Blood Pressure [Ri ght Arm] 140/90 H Pulse Oximetry 92 92 Oxygen Delivery Me thod Room Air Room Air Oxygen Flow Rate 09/12/22 15:00 09/12/22 15:00 Temperature 98.1 F Pulse Rate Pulse Rate [Right Radial] 95 95 Respiratory Rate 18 18 Blood Pressure [Le ft Arm] Blood Pressure [Ri ght Arm] 155/88 H Pulse Oximetry 92 Oxygen Delivery Me thod Room Air Oxygen Flow Rate Documenting provider has reviewed patient's vital signs: yes Labs Labs: Laboratory Results - last 24 hr 09/12/22 09/12/22 08:40 08:46 WBC 8.08 RBC 3.64 L Hgb 9.8 L Hct 31.3 L MCV 86 MCH 27 MCHC 31 L Plt Count 323 Sodium 140 Potassium 4.2 Chloride 110 Carbon Dioxide 26 BUN 17 Creatinine 1.3 Estimated Creat Clear 38.82 Estimated GFR 46 Glucose 101 Calcium 8.9 Phosphorus 3.4 Total Creatine Kinase 286 H NT-Pro-B Natriuret Pep 05387 Albumin 3.4
--- NOTE | 2022-09-12 16:21 | PC.NURSE ---
PATIENT ALERT TO SELF, AWARE OF SITUATION AND MONTH, PATIENT EXPRESSED FEELING OFF THIS MORNING, I DIDN'T SLEEP MUCH LAST NIGHT AND I AM HAVING DIARRHEA, PRN IMODIUM GIVEN, POOR APPETITE NOTED OFFERED ENSURE/HIGHER PROTEIN OPTIONS PATIENT DECLINED REQUESTING SPRITE AND AN RASPBERRY ICE, TELE SHOWING SINUS TACH/NSR, RATING PAIN GENERALIZED/BACK 02/08 THIS IS BEING MANAGED WITH SCHEDULED PAIN MEDICATION, UP WITH A1 WALKER AND BELT TOLERATING FAIRLY, PATIENT HAS POOR ACTIVITY TOLERANCE, ENCOURAGED PATIENT TO SITE UP IN CHAIR, PATIENT PLEASANT.
--- NOTE | 2022-09-12 16:46 | PC.SOCIAL ---
Addendum entered by KAUR Wong 09/12/22 16:56: Received a phone call from pt's , Eric, stating that he will come to visit this evening and will discuss discharge plans with pt. Discussed SNF's vs. home care. Pt's states that he does not think pt will go to a SNF as he states pt has been to SNF's in the past and has not received good care. Social work will follow up with pt and pt's tomorrow. Original Note: Discharge planning- Met with pt in pt's room to discuss discharge plans. Pt has been feeling very sick to her stomach today and has had diarrhea so she has not had a chance to connect with her to discuss discharge plans and the recommendation for short term rehab. Pt is hoping to go home and does not want to go to a SNF, but would like her 's input. If pt goes to SNF pt states she will only go in [place] or [place]. Pt gave this worker permission to call her . Phone call to pt's , Eric, to discuss discharge plans. No answer, left voicemail requesting a phone call back. Received a phone call from [facility] in [place] informing that they are declining pt for admission due to not having any beds available for a pt with wound care. Social work will continue to follow up as necessary.
[2022-09-12] MEDS: SODIUM CHLORIDE 0.9 % (FLUSH) 10 ML SYRINGE IVF (18:05)
--- NOTE | 2022-09-12 19:37 | PC.NURSE ---
End of Shift ([id number]): Patient pleasant and cooperative. Afebrile. O2 sats greater than 90% on room air. Up to BSC and chair with SBA, walker and gait belt. Tolerating full liquids and applesauce with no nausea. No BM this shift.
[2022-09-13] VITALS (8 sets, daily range): BP systolic 155–179; BP diastolic 84–116; PULSE 86–91; RESP 14–20; TEMP 36.6–36.9; O2SAT 92–98
[2022-09-13] MEDS: MORPHINE 4 MG/ML INJ IVP ×4 (01:30→23:11)
[2022-09-13] MEDS: ACETAMINOPHEN 325 MG TABLET 975 MG PO (03:37)
[2022-09-13] MEDS: LOPERAMIDE HCL 2 MG CAPSULE PO ×2 (03:38→12:37)
[2022-09-13] MEDS: SODIUM CHLORIDE 0.9 % (FLUSH) 10 ML SYRINGE IVF ×5 (05:44→12:40)
[2022-09-13] MEDS: HEPARIN 500 UNIT/5 ML SYRINGE IVF ×5 (05:44→23:11)
[2022-09-13] MEDS: LEVOTHYROXINE 75 MCG TABLET 150 MCG PO (06:11)
--- NOTE | 2022-09-13 06:27 | PC.NURSE ---
Pt alert and oriented x3. Pt reports 8/10 pain in her?back and hip, pain managed with scheduled oxycodone and PRN medications. Pt denies chest pian, SOB, and N/V. Afebrile. Pt 02 sats were 90-92 on room air,?pt reports being on home oxygen 2L at night for sleep apnea, 2 L of oxygen overnight sats stayed between 90-92%. Pt has Central line tripple lumen that is patent and dressing CDI. Pt is SBA with walker and gait belt to chair and?bathroom. Pt is tolerating a regular diet. Pt slept throughout the night. ???
[2022-09-13 07:07] LABS: Creatine Kinase* 129 U/L (41-117); Creatinine* 0.8 mg/dL (0.5-1.5); Est. Creatinine Clearance* 50.47; Estimated Glomerular Filt Rate 82 ml/min
[2022-09-13] MEDS: DULOXETINE 30 MG CAPSULE DR 120 MG PO (08:58)
[2022-09-13] MEDS: FUROSEMIDE 20 MG TABLET 40 MG PO (08:59)
[2022-09-13] MEDS: POTASSIUM CHLORIDE 10 MEQ CAPSULE ER 20 MEQ PO (08:59)
[2022-09-13] MEDS: HYDROXYCHLOROQUINE 200 MG TABLET PO ×2 (08:59→20:32)
[2022-09-13] MEDS: LACTOBACILLUS ACIDOPHILUS 1 TABLET 2 TAB PO ×2 (08:59→12:37)
[2022-09-13] MEDS: BUSPIRONE 10 MG TABLET 15 MG PO ×2 (08:59→20:34)
[2022-09-13] MEDS: OXYCODONE (CR) 10 MG TAB.ER.12H PO ×3 (09:00→20:32)
[2022-09-13] MEDS: AMOXICILLIN/CLAVULANATE 500 mg/125 mg TABLET PO (09:01)
[2022-09-13] MEDS: PANTOPRAZOLE SODIUM 40 MG INJ IVP (09:08)
--- NOTE | 2022-09-13 14:38 | P.IMPN_ITS ---
Progress Note: A&P Assessment and plan (1) Recurrent aspiration pneumonia: Problem details: Likely related to underlying achalasia. Status: Acute (2) Sepsis with acute hypoxic respiratory failure: Problem details: - likely 2/2 opacities noted in R lung - initially was on Zosyn and Vancomycin (09/08), add Azithromycin (09/09). On 12 September we switched her to oral Augmentin. - much improved with aggressive fluid resuscitation Status: Acute (3) Altered mental status: Problem details: Normalized, nevertheless worrisome for her inability to process and discern information relative to her own safety Status: Acute (4) Dehydration: Problem details: Normalized Status: Acute (5) Vomiting and diarrhea: Problem details: - she had this when she 1st presented to the hospital which was thought to be related to viral GI illness and improved in ED. Nausea has since resolved. Three episode of diarrhea yesterday. No diarrhea today. Status: Acute (6) Acute kidney injury: Problem details: - outpatient creatinine baseline <1; patient notably had JACK with hospitalization in August as well - likely prerenal 2/2 recent GI illness, in addition to acute respiratory illness - hold nephrotoxins, rehydrate and follow closely, creatinine 09/12/2022 finally down to 1.3 Status: Acute (7) Sinus tachycardia: Problem details: Acute on chronic Status: Acute (8) Consolidation of right upper lobe of lung: Status: Acute (9) Sleep apnea: Problem details: Has not tolerated CPAP. Had evaluation for inspire and she did not qualify. She has mild nocturnal hypoxia. Opioids are certainly making this worse Status: Acute (10) Rhabdomyolysis: Problem details: Saline lock IV and monitor response. Creatine kinase 10,000 on presentation, down to 900 on 09/11/2022, and 286 on 09/12/2022. Status: Acute (11) Demand ischemia of myocardium: Problem details: Troponin I max 0.39, normalizing Status: Acute (12) Declining functional status: Problem details: Patient is having significant functional decline likely due to a combination of chronic opioid therapy and very sedentary lifestyle. 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 Again recommend transitional care services to patient prior to discharge home. She is willing to consider this. Status: Acute (13) Physical deconditioning: Status: Acute (14) Chronic, continuous use of opioids: Problem details: Continue with current chronic treatment plan for chronic pain Status: Acute (15) Heart murmur: Problem details: - noted during previous hospitalization, likely exacerbated by dehydrated status - TTE obtained 08/21/22: Final Impressions: 1. Technically limited exam. 2. Normal LV size, moderately increased wall thickness, normal global systolic function with an estimated EF of 65 - 70%. - transthoracic echocardiogram obtained 09/09/2022: 1. Mild left ventricular outlet obstruction in hyperdynamic state. 2. No regional motion abnormalities Status: Acute (16) Achalasia: Problem details: - diagnosed during 08/2022 hospitalization, likely cause of her aspiration Status: Acute (17) Hemoptysis: Problem details: No apparent problems since in hospital. Status: Acute (18) Polypharmacy: Problem details: This is a major concern as expressed by her should she return home. Status: Acute (19) Hypokalemia: Problem details: Improved with replacement therapy Status: Acute (20) Hypoalbuminemia: Problem details: In part related to acute illness and possibly also melena or standing Status: Acute (21) Hypocalcemia: Problem details: Resolved Status: Acute (22) Volume overload state of heart: Problem details: On 09/13/2022 weight 101.4 kg. 09/12/2022, weight 105.7 kg. 09/11/2022, weight 106.3 kg. 09/09/2022, weight 100.2 kg. Status: Acute Plan 1. Urged patient to do all she can to try to be as independent as possible throughout today with the help of her nursing staff, physical therapy, occupational therapy. 2. She is now agreeable to consider the possibility of transitional care services prior to returning home. 3. I remain concerned about her cognitive abilities. She seems to not realize her cognitive impairments. Would benefit from intensive cognitive assessment. Time Spent With Patient Total time spent: 40 minutes Subjective Time Seen by Provider: 08:00 Date Seen: 09/13/22 Interval history: Hospital day 6. 67-year-old woman presented with altered mental status and increased lethargy. Was found to have recurrent aspiration pneumonia, with tachycardia, hypotension, tachypnea, hypoxemia, pulmonary infiltrate. There was concern that she might have acute blood loss from possible gastrointestinal source. thought she had dark, sticky stools with no obvious overt bright red blood per rectum or hematemesis or hemoptysis. No obvious gross bleeding here in the hospital. Recently discharged from our hospital. According to the patient and her she was doing relatively well at home soon after discharge but then starting 2 days prior to her current hospitalization, she had a sudden, unanticipated rapid decline. Patient not helping a lot with her efforts to mobilize. Seemingly not able to process the need for increased efforts to achieve and maintain her stated level of desired independence. She states she has a level and ability and independence here in the hospital and in her home that we do not see here and which her does not corroborate about in regards to home. Less dyspnea with exertion. Tolerating oral intake now. Exam Narrative: Exam Narrative: Appears comfortable. Cognitive abilities still not safe with poor decision-making abilities. Lungs are clear than they have been. Heart tones with regular rhythm. Abdomen benign. Transfers with assist. Needs assist with a lot of her ADLs. Able to feed herself. Const: Vital Signs, click to edit/add: Vital Signs - 24 hr 09/12/22 15:00 09/12/22 15:00 09/12/22 15:00 Temperature 98.1 F Pulse Rate Pulse Rate [Right Radial] 95 95 Respiratory Rate 18 18 Blood Pressure [Le ft Arm] Blood Pressure [Ri ght Arm] 155/88 H Pulse Oximetry 92 92 Oxygen Delivery Me thod Room Air Room Air Oxygen Flow Rate 09/12/22 15:00 09/12/22 20:17 09/12/22 22:52 Temperature 98.4 F 98.2 F Pulse Rate 95 Pulse Rate [Right Radial] 92 95 Respiratory Rate 16 16 Blood Pressure [Le ft Arm] 118/75 144/87 H Blood Pressure [Ri ght Arm] Pulse Oximetry 90 92 Oxygen Delivery Me thod Room Air Nasal Cannula Oxygen Flow Rate 2 09/12/22 23:00 09/12/22 23:00 09/12/22 23:00 Temperature Pulse Rate 88 Pulse Rate [Right Radial] 95 Respiratory Rate 16 16 Blood Pressure [Le ft Arm] Blood Pressure [Ri ght Arm] Pulse Oximetry 92 Oxygen Delivery Me thod Nasal Cannula Oxygen Flow Rate 2 09/13/22 03:25 09/13/22 08:03 09/13/22 08:03 Temperature 98.3 F 98.0 F Pulse Rate Pulse Rate [Right Radial] 91 90 Respiratory Rate 14 20 Blood Pressure [Le ft Arm] Blood Pressure [Ri ght Arm] 155/95 H 179/116 H Pulse Oximetry 92 98 98 Oxygen Delivery Me thod Nasal Cannula Nasal Cannula Nasal Cannula Oxygen Flow Rate 2 2 2 09/13/22 07:05 09/13/22 12:35 Temperature 97.9 F Pulse Rate 86 Pulse Rate [Right Radial] 88 Respiratory Rate 18 Blood Pressure [Le ft Arm] Blood Pressure [Ri ght Arm] 162/101 H Pulse Oximetry 98 Oxygen Delivery Me thod Nasal Cannula Oxygen Flow Rate 2 Documenting provider has reviewed patient's vital signs: yes Labs Labs: Laboratory Results - last 24 hr 09/10/22 09/13/22 04:55 05:50 Creatinine 0.8 Estimated Creat Clear 50.47 Estimated GFR 82 Total Creatine Kinase 129 H Ur L.pneumophila Ag Negative
--- NOTE | 2022-09-13 16:43 | PC.SOCIAL ---
Discharge planning- Met with pt in pt's room to discuss discharge plans. Pt is ok with moving forward with SNF for short term rehab. Pt would like to stay away from the [facility] SNF's. Pt would like [facility] or [place]. Informed pt that this worker would also reach out to her as pt states she did not speak with him. Phone call to pt's . Pt's states he visited pt last night to discuss pt going to SNF. Pt's states that Pt was very out of it and does not remember his visit. Pt's states that he does not believe he can provide care for her in the current condition pt is in because pt's works and cannot take time off. Pt's would like to move forward with SNF placement for short term rehab. Pt's would also like to stay away from the [facility] and look more in the [place] or [facility]. Contacted the following SNF's for possible placement. 1. [facility]- Is assessing pt for possible admission. 2. [facility]- Phone call to [facility] and left voicemail. Faxed referral to [phone]. 3. [facility]- phone call to [facility] and left voicemail. Faxed referral to [phone]. 4. [facility]- phone call to Teresa in admissions. There are openings. Faxed referral to [phone]. Social work will follow up as necessary.
[2022-09-13] MEDS: SODIUM CHLORIDE 0.9 % (FLUSH) 10 ML SYRINGE 5 ML IVF (20:35)
[2022-09-14] VITALS (17 sets, daily range): BP systolic 76–185; BP diastolic 38–120; PULSE 56–98; RESP 16–20; TEMP 36.5–36.9; O2SAT 93–98
[2022-09-14] MEDS: MORPHINE 4 MG/ML INJ IVP ×2 (03:14→09:55)
[2022-09-14] MEDS: HEPARIN 500 UNIT/5 ML SYRINGE IVF ×3 (03:14→22:56)
[2022-09-14] MEDS: SODIUM CHLORIDE 0.9 % (FLUSH) 10 ML SYRINGE IVF ×2 (03:15→18:10)
[2022-09-14] MEDS: ACETAMINOPHEN 325 MG TABLET 975 MG PO ×2 (03:38→13:57)
--- NOTE | 2022-09-14 04:03 | PC.NURSE ---
Pt's BP at 194 was 162/84. BP was taken again 2299 BP was 171/121 with automatic cuff on right arm, then BP was taken on left arm 183/114 with automatic cuff, Dr. Lopez updated around 1120, no new orders given. At 213 pts blood pressure was taken on right arm with automatic cuff 198/121, then taken again with manual cuff on right arm 185/120. Around 030 Porter was updated and blood pressure was taken again on right arm with automatic cuff 167/109, no new orders given.
[2022-09-14] MEDS: LEVOTHYROXINE 75 MCG TABLET 150 MCG PO (05:34)
--- NOTE | 2022-09-14 07:34 | PC.NURSE ---
Pt alert and oriented x3. Afebrile. Pt reports 8/10 pain in her?back, hip, and head, pain managed with scheduled oxycodone and PRN medications. Pt denies chest pian, and N/V. Afebrile. Pt has SOB with exertion. Pt 02 sats were between 94-98%?on 2 L oxygen overnight, titrated?oxygen down 1 L due to sats being 98%. Pt remained hypertensive throughout night Dr. Lopez and Ayush updated (Full details in previous note), no change in orders. Pt is SBA with walker and gait belt to chair and?bathroom. Pt is tolerating a regular diet. Pt slept throughout the night. ???
[2022-09-14] MEDS: AMOXICILLIN/CLAVULANATE 500 mg/125 mg TABLET PO ×2 (09:22→18:24)
[2022-09-14] MEDS: LACTOBACILLUS ACIDOPHILUS 1 TABLET 2 TAB PO ×3 (09:23→18:24)
[2022-09-14] MEDS: FUROSEMIDE 20 MG TABLET 40 MG PO (09:23)
[2022-09-14] MEDS: OXYCODONE (CR) 10 MG TAB.ER.12H PO ×3 (09:24→21:03)
[2022-09-14] MEDS: LOSARTAN POTASSIUM 50 MG TABLET 25 MG PO (09:24)
[2022-09-14] MEDS: OMEPRAZOLE 20 MG CAPSULE DR PO ×2 (09:25→09:34)
[2022-09-14] MEDS: NYSTATIN POWDER 1 APPLIC TOPICAL (09:25)
[2022-09-14] MEDS: HYDROXYCHLOROQUINE 200 MG TABLET PO ×2 (09:25→21:04)
[2022-09-14] MEDS: METOPROLOL SUCCINATE (XL) 25 MG TAB PO (09:35)
[2022-09-14] MEDS: BUSPIRONE 10 MG TABLET 15 MG PO ×2 (09:35→21:03)
[2022-09-14] MEDS: DULOXETINE 30 MG CAPSULE DR 120 MG PO (09:36)
[2022-09-14] MEDS: PREGABALIN 100 MG CAPSULE 300 MG PO ×2 (09:46→21:03)
[2022-09-14] MEDS: TIZANIDINE HCL 4 MG TABLET PO (09:47)
[2022-09-14] MEDS: TAMSULOSIN HCL 0.4 MG CAPSULE PO (09:47)
[2022-09-14] MEDS: LOPERAMIDE HCL 2 MG CAPSULE PO ×2 (13:57→22:26)
[2022-09-14] MEDS: CARBOXYMETHYLCELLULOSE (REFRESH PLUS) TEARS 1 DROP EYE-BOTH (13:57)
--- NOTE | 2022-09-14 15:28 | PC.NURSE ---
TELE NSR, pt evaluated by myself, Dr. Anders, PT and OT. Pt slept in and c/o back pain at initial assessment. Please emar for meds provided, pt c/o nausea after taking just a few of her pills. Refused bkfst tray, applesauce provided. Zofran ODT provided to help with her queasy stomach. One final dose of Morphine IV given per central line. Awaiting placement for transitional care. Pt also had prn tylenol 975, akwa tears and 2 doses of Lomotil prn. Pt would not get up to chair until later in the afternoon after she walked in hallway with Crow from PT. Pt had 420 in orally and 450 cc out in urine plus 2 unmeasured voids. Taking her afternoon pills with cruz ice and sprite. Pt up to BR and said she felt dizzy. Xanaflex drops my blood pressure, I usually just take one. Pt unable to stay standing for pericares times 2 attempts. OT Lina arrived to assist with transfer back to bed via w/c, pt tearful, she requested oxygen which was placed at 2L/nc in an attempt to calm pt down. Please see VS on the daily rounding sheet. Report given to Britney WILLIAMSON for evening shift.
[2022-09-14] MEDS: 0.9 % SODIUM CHLORIDE 500 ML 500 ML IV ×2 (15:57→20:00)
[2022-09-14 16:14] LABS: HCO3 VBG 33 mmol/L (21-28); Ionized Calcium* 1.08 mmol/L (1.11-1.30); Lactate* 1.7 mmol/L (0.5-1.9); PCO2 VBG 51 mmHG (40-50); PO2 VBG 32.7 mmHG (25-47); pH VBG 7.416 (7.32-7.43)
[2022-09-14 16:15] LABS: Hematocrit 26.5 % (33.0-51.0); Hemoglobin* 8.3 gm/dL (12.0-16.0); Mean Corpuscular HGB Conc 31 gm/dL (32-36); Mean Corpuscular Hemoglobin 27 pg (26-34); Mean Corpuscular Volume 86 fL (80-100); Platelet Count* 243 K/uL (140-440); Red Blood Count 3.07 m/uL (4.00-5.20); White Blood Count* 4.22 K/uL (4.50-11.00)
[2022-09-14 16:21] LABS: Slide Review Reflex No
--- NOTE | 2022-09-14 16:32 | PC.SOCIAL ---
Discharge planning- Received a phone call from Teresa in admissions at the [facility] in [place]. Teresa asked clarifying questions on medical status of pt. Teresa stated that SNF would like to see pt off IV pain medication and on oral pain medication to assess again for potential placement. Follow up phone call at end of day from Teresa at the [facility]. Provided an update on how pt is tolerating oral pain medication. Teresa offered a shared room for Short term rehab for tomorrow (09/15/2022). Phone call to pt's , Eric, to provide update. Pt's states he cannot provide care and would like to move forward with short-term rehab stay to get pt stronger before coming home. Discussed transportation and pt's informed that he will transport pt to the [facility]. Pt's can be at the [facility] at 12:00 pm to provide transportation. Provided update to Teresa at the [facility] and charge nurse. Provided information to pt in pt's room. Social work will follow up as necessary.
[2022-09-14 16:35] LABS: Chloride* 101 mmol/L (96-114); Sodium* 136 mmol/L (135-149)
[2022-09-14 16:36] LABS: Potassium* 3.2 mmol/L (3.6-5.1)
[2022-09-14 16:38] LABS: Blood Urea Nitrogen* 7 mg/dL (7-30); Carbon Dioxide* 32 mmol/L (20-32); Creatinine* 0.8 mg/dL (0.5-1.5); Est. Creatinine Clearance* 50.47; Estimated Glomerular Filt Rate 82 ml/min
[2022-09-14 16:39] LABS: Calcium* 7.8 mg/dL (8.4-10.6); Glucose* 119 mg/dL (60-115); Magnesium* 1.1 mg/dL (1.5-2.6)
--- NOTE | 2022-09-14 16:46 | P.IMPN_ITS ---
Progress Note: A&P Assessment and plan (1) Recurrent aspiration pneumonia: Problem details: Likely related to underlying achalasia. Stressed with patient importance of eating and drinking the sitting upright position and taking her time. Status: Acute (2) Sepsis with acute hypoxic respiratory failure: Problem details: - likely 2/2 opacities noted in R lung - initially was on Zosyn and Vancomycin (09/08), add Azithromycin (09/09). On 12 September we switched her to oral Augmentin, which he is tolerating. - much improved with aggressive fluid resuscitation Status: Acute (3) Altered mental status: Problem details: Normalized, nevertheless worrisome for her inability to process and discern information relative to her own safety Some of this seems to be chronic. Would benefit from formal cognitive testing. Status: Acute (4) Dehydration: Problem details: Normalized Status: Acute (5) Vomiting and diarrhea: Problem details: - she had this when she 1st presented to the hospital which was thought to be related to viral GI illness and improved in ED. Nausea has since resolved. Three episode of diarrhea yesterday. No diarrhea today. Status: Acute (6) Acute kidney injury: Problem details: - outpatient creatinine baseline <1; patient notably had JACK with hospitalization in August as well - likely prerenal 2/2 recent GI illness, in addition to acute respiratory illness - hold nephrotoxins, rehydrate and follow closely, creatinine 09/12/2022 down to 1.3, and on 09/13/2022 and 09/14/2022 down to 0.8. Status: Acute (7) Sinus tachycardia: Problem details: Acute on chronic Status: Acute (8) Consolidation of right upper lobe of lung: Problem details: Likely related to aspiration event in her home. Status: Acute (9) Sleep apnea: Problem details: Has not tolerated CPAP. Had evaluation for inspire and she did not qualify. She has mild nocturnal hypoxia. Opioids are certainly making this worse Status: Acute (10) Rhabdomyolysis: Problem details: Saline lock IV and monitor response. Creatine kinase 10,000 on presentation, down to 129 on 09/13/2022. Status: Acute (11) Demand ischemia of myocardium: Problem details: Troponin I max 0.39, normalizing Status: Acute (12) Declining functional status: Problem details: Patient is having significant functional decline likely due to a combination of chronic opioid therapy and very sedentary lifestyle. 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 Again recommend transitional care services to patient prior to discharge home. She is willing to consider this. Status: Acute (13) Physical deconditioning: Problem details: Chronic Status: Acute (14) Chronic, continuous use of opioids: Problem details: Continue with current chronic treatment plan for chronic pain Status: Acute (15) Heart murmur: Problem details: - noted during previous hospitalization, likely exacerbated by dehydrated status - TTE obtained 08/21/22: Final Impressions: 1. Technically limited exam. 2. Normal LV size, moderately increased wall thickness, normal global systolic function with an estimated EF of 65 - 70%. - transthoracic echocardiogram obtained 09/09/2022: 1. Mild left ventricular outlet obstruction in hyperdynamic state. 2. No regional motion abnormalities Status: Acute (16) Achalasia: Problem details: - diagnosed during 08/2022 hospitalization, likely cause of her aspiration May need additional diagnostic and interventional efforts, including consultation with director network development Status: Acute (17) Hemoptysis: Problem details: No apparent problems since in hospital. Status: Acute (18) Polypharmacy: Problem details: This is a major concern as expressed by her should she return home. Status: Acute (19) Hypokalemia: Problem details: Improved with replacement therapy Status: Acute (20) Hypoalbuminemia: Problem details: In part related to acute illness and possibly also melena or standing Status: Acute (21) Hypocalcemia: Problem details: Resolved Status: Acute (22) Volume overload state of heart: Problem details: On 09/13/2022 weight 101.4 kg. 09/12/2022, weight 105.7 kg. 09/11/2022, weight 106.3 kg. 09/09/2022, weight 100.2 kg. Status: Acute Plan 1. Reviewed with patient 2. Continue work with social sciences research scientist to try to establish a safe discharge disposition plan 3. Continue with other supportive efforts at this time. Time Spent With Patient Total time spent: 30 minutes Subjective Time Seen by Provider: 08:00 Date Seen: 09/14/22 Interval history: Hospital day 7. 67-year-old woman presented with altered mental status and increased lethargy. Was found to have recurrent aspiration pneumonia, with tachycardia, hypotension, tachypnea, hypoxemia, pulmonary infiltrate. There was concern that she might have acute blood loss from possible gastrointestinal source. thought she had dark, sticky stools with no obvious overt bright red blood per rectum or hematemesis or hemoptysis. No obvious gross bleeding here in the hospital. Recently discharged from our hospital. According to the patient and her she was doing relatively well at home soon after discharge but then starting 2 days prior to her current hospitalization, she had a sudden, unanticipated rapid decline. Patient still not helping a lot with her efforts to mobilize. Seemingly still not able to process the need for increased efforts to achieve and maintain her stated level of desired independence in her home. Not spontaneous in her activities at all. With encouragement and support she is able to carry out activities as requested by her nurse or physical therapist or occupational therapist. Less dyspnea with exertion. Tolerating oral intake when sitting upright. This morning she tried to take her medicine while laying down and regurgitated it. Did not aspirate. Did not cough. Exam Narrative: Exam Narrative: Appears at baseline status. Sometimes has difficulty expressing herself with word-finding difficulties. This is not new. Alert, oriented to self, place, in part to time and situation. Articulate. Appears anxious. Mood and affect are congruent. Lungs seem clear at this time. Heart tones with regular rhythm. Abdomen with active bowel sounds, soft, nontender. Trace edema pretibially on the left, chronic. Moves all 4 extremities. Const: Vital Signs, click to edit/add: Vital Signs - 24 hr 09/13/22 19:44 09/13/22 23:00 09/13/22 23:00 Temperature Pulse Rate 90 Pulse Rate [Pulse Oximeter] Pulse Rate [Right Radial] 89 90 Respiratory Rate 18 20 Blood Pressure [Le ft Arm] Blood Pressure [Ri ght Arm] 162/84 H 171/112 H Pulse Oximetry 98 98 Oxygen Delivery Me thod Nasal Cannula Nasal Cannula Oxygen Flow Rate 2 2 Fraction of Inspir ed Oxygen 09/13/22 23:00 09/13/22 23:00 09/14/22 02:14 Temperature 98.4 F Pulse Rate Pulse Rate [Pulse Oximeter] Pulse Rate [Right Radial] 90 97 Respiratory Rate 20 20 16 Blood Pressure [Le ft Arm] Blood Pressure [Ri ght Arm] 185/120 H Pulse Oximetry 98 98 Oxygen Delivery Me thod Nasal Cannula Nasal Cannula Oxygen Flow Rate 2 2 Fraction of Inspir ed Oxygen 09/14/22 03:25 09/14/22 07:05 09/14/22 08:45 Temperature 98.5 F Pulse Rate 94 Pulse Rate [Pulse Oximeter] Pulse Rate [Right Radial] 94 Respiratory Rate 16 Blood Pressure [Le ft Arm] Blood Pressure [Ri ght Arm] 167/109 H Pulse Oximetry 94 Oxygen Delivery Me thod Nasal Cannula Room Air Oxygen Flow Rate 2 Fraction of Inspir ed Oxygen 09/14/22 08:45 09/14/22 13:40 09/14/22 15:36 Temperature 98.4 F 98.3 F 97.7 F Pulse Rate Pulse Rate [Pulse Oximeter] 56 L Pulse Rate [Right Radial] 83 95 Respiratory Rate 20 20 16 Blood Pressure [Le ft Arm] 155/77 H Blood Pressure [Ri ght Arm] 159/98 H 87/38 L Pulse Oximetry 98 95 93 Oxygen Delivery Me thod Room Air Room Air Room Air Oxygen Flow Rate Fraction of Inspir ed Oxygen 09/14/22 15:39 09/14/22 15:43 09/14/22 15:52 Temperature Pulse Rate Pulse Rate [Pulse Oximeter] 60 96 69 Pulse Rate [Right Radial] Respiratory Rate Blood Pressure [Le ft Arm] Blood Pressure [Ri ght Arm] 76/41 L 80/47 L 82/50 L Pulse Oximetry 96 96 Oxygen Delivery Me thod Nasal Cannula Room Air Oxygen Flow Rate 1 Fraction of Inspir ed Oxygen 09/14/22 16:15 09/14/22 15:00 09/14/22 15:00 Temperature Pulse Rate Pulse Rate [Pulse Oximeter] 64 64 Pulse Rate [Right Radial] Respiratory Rate 16 16 Blood Pressure [Le ft Arm] Blood Pressure [Ri ght Arm] 91/50 L Pulse Oximetry 96 Oxygen Delivery Me thod Nasal Cannula Nasal Cannula Oxygen Flow Rate 96 Fraction of Inspir ed Oxygen 1 09/14/22 16:30 Temperature Pulse Rate Pulse Rate [Pulse Oximeter] 66 Pulse Rate [Right Radial] Respiratory Rate Blood Pressure [Le ft Arm] Blood Pressure [Ri ght Arm] 98/48 L Pulse Oximetry 93 Oxygen Delivery Me thod Room Air Oxygen Flow Rate Fraction of Inspir ed Oxygen Documenting provider has reviewed patient's vital signs: yes Labs Labs: Laboratory Results - last 24 hr 09/14/22 09/14/22 09/14/22 15:55 16:08 16:08 WBC 4.22 L RBC 3.07 L Hgb 8.3 L Hct 26.5 L MCV 86 MCH 27 MCHC 31 L Plt Count 243 VBG pH 7.416 VBG pCO2 51 H VBG pO2 32.7 VBG HCO3 33 H Sodium 136 Potassium 3.2 L Chloride 101 Carbon Dioxide 32 BUN 7 Creatinine 0.8 Estimated Creat Clear 50.47 Estimated GFR 82 Glucose 119 H Lactate 1.7 Calcium 7.8 L Ionized Calcium Shamar 1.08 L Magnesium 1.1 L
[2022-09-14 16:52] LABS: Troponin I* 0.08 ng/mL (0.01-0.04)
--- NOTE | 2022-09-14 17:19 | PM.EN ---
Chart Event Note Time Seen by Provider: 17:00 Date Seen: 09/14/22 Chart Event Note: called to see patient for hypotension, some slurring of words and confused. by the time I came in she had apparently had a muscle cramp and she was awake and alert. she is able to tell me the muscle relaxant sometimes makes her feel like this. she feels blah and floaty 80/50 and mildly symptomatic 500 CC NS bolus --> 90's/50's. ECG is NSR with normal (60's) pulse. No significant change from last ECG in EMR. stat labs notes: -down trending troponin -mildly depressed calcium, magnesium and potassium -baseline anemia After the normal saline bolus, I started normal saline with 20 of K as well as a calcium and magnesium bump -patient seems to feel better she is watching music videos and less symptomatic I do not think she had a stroke. There were no focal neurologic signs and her confusion and slurring is explained by her blood pressure. Resolved quickly. Check labs in the morning
[2022-09-14] MEDS: 0.9 % SODIUM CH + KCL 20 mEq/L 1,000 ML 125 ML IV (18:07)
[2022-09-14] MEDS: MAGNESIUM IV 2 GM/50 ML PIGGYBACK IVPB (18:08)
--- NOTE | 2022-09-14 19:30 | PC.NURSE ---
End of Shift([id number]): Patient pleasant and cooperative. Patient has been hypotensive all shift with BP's systolically in 70-80's, MD notified, 500 NS bolus given as well as other ordered meds. EKG performed. Patient's BP did improve slightly systolically to 90's but then decreases back down, MD notified. Patient has been lying flat. Patient ate half of her dinner, and does have more slurred speech as if intoxicated but alert and oriented, neuros intact. Blood sugar check 131. Tele=NSR
[2022-09-14] MEDS: MIRTAZAPINE 15 MG TABLET 30 MG PO (21:05)
[2022-09-14] MEDS: SODIUM CHLORIDE 0.9 % (FLUSH) 10 ML SYRINGE 5 ML IVF (21:05)
--- NOTE | 2022-09-14 22:45 | PC.NURSE ---
Med cup in room with several pills. 3 tablets identified as Tylenol, 2 others were somewhat melted and unidentifiable. Dr. Obi pinedo.
--- NOTE | 2022-09-15 00:12 | PC.NURSE ---
SHIFT NOTE 19-23: Pt A&O. At beginning of shift, pt hypotensive with SBP in the 80's, updated, fluid bolus given, pt BP increased to 90's/60's and then by 2099 pt's SBP back to 140's. Updated pt's about the low BP's throught the afternoon and he reported Oh she does that all the time at home, the doctor's haven't figured out why yet, he stated her BP's will be high at times and then for no reason at all they will drop and she falls and gets very tired after. Pt was tired initially but woke up and was in good spirits, ate a variety of snacks. Up to BSC 1 assist and tolerated well, denied lightheadedness/dizziness. Pt on RA with O2 saturations in the low to mid 90's. Denies SOB, CP, and N/V.
[2022-09-15 03:00] VITALS: BP 131/85; PULSE 92; RESP 18; O2SAT 90
[2022-09-15] MEDS: ACETAMINOPHEN 325 MG TABLET 975 MG PO (04:42)
[2022-09-15] MEDS: LOPERAMIDE HCL 2 MG CAPSULE PO (04:42)
[2022-09-15] MEDS: HEPARIN 500 UNIT/5 ML SYRINGE IVF ×2 (04:42→05:17)
[2022-09-15] MEDS: SODIUM CHLORIDE 0.9 % (FLUSH) 10 ML SYRINGE IVF ×2 (04:43→05:17)
[2022-09-15 05:01] LABS: Hemoglobin* 8.9 gm/dL (12.0-16.0)
[2022-09-15] MEDS: LEVOTHYROXINE 75 MCG TABLET 150 MCG PO (05:17)
[2022-09-15 05:25] LABS: Ionized Calcium* 1.16 mmol/L (1.11-1.30)
[2022-09-15 05:26] LABS: Chloride* 104 mmol/L (96-114); Sodium* 139 mmol/L (135-149)
[2022-09-15 05:29] LABS: Blood Urea Nitrogen* 7 mg/dL (7-30); Carbon Dioxide* 32 mmol/L (20-32); Creatinine* 0.7 mg/dL (0.5-1.5); Est. Creatinine Clearance* 50.47; Estimated Glomerular Filt Rate 96 ml/min; Glucose* 100 mg/dL (60-115)
[2022-09-15 05:30] LABS: Calcium* 8.1 mg/dL (8.4-10.6); Magnesium* 1.7 mg/dL (1.5-2.6)
[2022-09-15 07:00] VITALS: BP 134/81; PULSE 84; RESP 16; TEMP 36.8; O2SAT 93
--- NOTE | 2022-09-15 07:14 | PC.NURSE ---
Shift note: Pt woke up around 0400 questioning where are her scheduled pain medications for the night time. She sounded very upset and insisted she will get very sick if those meds are not given. Tylenol offered by RN and suggested to discuss her pain medications with MD, pt agreed. Pt ambulates with no assist to the bathroom, gait is stable even with no assisted devices.
[2022-09-15] MEDS: AMOXICILLIN/CLAVULANATE 500 mg/125 mg TABLET PO (09:06)
[2022-09-15] MEDS: OXYCODONE (CR) 10 MG TAB.ER.12H PO (09:07)
[2022-09-15] MEDS: METOPROLOL SUCCINATE (XL) 25 MG TAB PO (09:07)
[2022-09-15] MEDS: OMEPRAZOLE 20 MG CAPSULE DR PO (09:07)
--- NOTE | 2022-09-15 09:07 | PC.SOCIAL ---
Discharge planning- Completed preadmission screening for pt to admit to [facility] [place] today. Confirmation #[id number]. Faxed PAS to [facility]. Social work will follow up as necessary.
[2022-09-15] MEDS: POTASSIUM CHLORIDE 10 MEQ CAPSULE ER 20 MEQ PO (09:08)
[2022-09-15] MEDS: HYDROXYCHLOROQUINE 200 MG TABLET PO (09:08)
[2022-09-15] MEDS: BUSPIRONE 10 MG TABLET 15 MG PO (09:08)
[2022-09-15] MEDS: LOSARTAN POTASSIUM 50 MG TABLET 25 MG PO (09:09)
[2022-09-15] MEDS: PREGABALIN 100 MG CAPSULE 300 MG PO (09:09)
[2022-09-15] MEDS: LACTOBACILLUS ACIDOPHILUS 1 TABLET 2 TAB PO (09:10)
[2022-09-15] MEDS: DULOXETINE 30 MG CAPSULE DR 120 MG PO (09:10)
[2022-09-15] MEDS: TAMSULOSIN HCL 0.4 MG CAPSULE PO (09:10)
[2022-09-15] MEDS: FUROSEMIDE 20 MG TABLET 40 MG PO (09:17)
[2022-09-15] MEDS: SODIUM CHLORIDE 0.9 % (FLUSH) 10 ML SYRINGE 5 ML IVF (09:17)
[2022-09-15] MEDS: POTASSIUM BICARB 25 MEQ EFFERVESCENT TAB 50 MEQ PO (10:57)
[2022-09-15 11:00] VITALS: BP 159/100; PULSE 84; RESP 16; TEMP 36.6; O2SAT 90
--- NOTE | 2022-09-15 14:31 | PC.NURSE ---
Discharge Note: VS WNL this morning, pt rates pain 7-8/10. Occasional cough with deep breathing, LS coarse throughout. Moves well with assist x1 with GB and walker. She did ambulate around the unit before breakfast. Showered this afternoon and central line discontinued using aseptic/sterile technique. approved administering pt's 1400 dose of Oxycontin 20mg early at 1245 to avoid discharge delay or pt being unable to get scheduled dose on arrival to SNF. She was discharged to [facility] via wheelchair in the care of her at 1255. Pt and verbalized understanding to commute directly to [place] post discharge.
--- NOTE | 2022-09-15 16:03 | P.DS_ITS ---
DS: Providers Provider Time Seen by Provider: 09:00 Date Seen: 09/15/22 Date of admission: 09/08/22 23:56 Primary care physician: Not a Local Provider Admitting Clinician: Deana Rangel MD Consults: 09/09/22 00:00 Consult to Physical Therapy [CONS] Routine Comment: Reason(s) for PT Consult:: Evaluate and Treat Any Restrictions?:: Wt Bearing as Tolerated 09/09/22 00:03 Consult to Occupational Therapy [CONS] Routine Comment: Reason(s) for OT Consult:: Evaluate and Treat Any Restrictions?:: Wt Bearing as Tolerated Attending Physician on discharge: José Anders MD Date of Discharge: 09/15/22 DS: Diagnosis Discharge Diagnosis (1) Sepsis with acute hypoxic respiratory failure: Status: Acute Problem details: - likely 2/2 opacities noted in R lung - initially was on Zosyn and Vancomycin (09/08), add Azithromycin (09/09). On 12 September we switched her to oral Augmentin, which he is tolerating. - much improved with aggressive fluid resuscitation (2) Recurrent aspiration pneumonia: Status: Acute Problem details: Likely related to underlying achalasia. Stressed with patient importance of eating and drinking the sitting upright position and taking her time. (3) Hemoptysis: Status: Acute Problem details: No apparent problems since in hospital. (4) Achalasia: Status: Acute Problem details: - diagnosed during 08/2022 hospitalization, likely cause of her aspiration May need additional diagnostic and interventional efforts, including consultation with personnel scheduler (5) Chronic pain: Status: Acute Problem details: back and legs (6) Chronic, continuous use of opioids: Status: Acute Problem details: Continue with current chronic treatment plan for chronic pain (7) Sleep apnea: Status: Acute Problem details: Has not tolerated CPAP. Had evaluation for inspire and she did not qualify. She has mild nocturnal hypoxia. Opioids are certainly making this worse (8) Altered mental status: Status: Acute Problem details: Normalized, nevertheless worrisome for her inability to process and discern information relative to her own safety Some of this seems to be chronic. Would benefit from formal cognitive testing. (9) Demand ischemia of myocardium: Status: Acute Problem details: Troponin I max 0.39, normalizing (10) Rhabdomyolysis: Status: Acute Problem details: Saline lock IV and monitor response. Creatine kinase 10,000 on presentation, down to 129 on 09/13/2022. (11) Hypokalemia: Status: Acute Problem details: Improved with replacement therapy (12) Hypoalbuminemia: Status: Acute Problem details: In part related to acute illness and possibly also melena or standing (13) Hypocalcemia: Status: Acute Problem details: Resolved (14) Poor intravenous access: Status: Acute Problem details: PICC placed during hospitalization from 09/08/22 to 09/15/22 (15) Volume overload state of heart: Status: Acute Problem details: On 09/13/2022 weight 101.4 kg. 09/12/2022, weight 105.7 kg. 09/11/2022, weight 106.3 kg. 09/09/2022, weight 100.2 kg. (16) Polypharmacy: Status: Acute Problem details: This is a major concern as expressed by her should she return home. (17) Acute kidney injury: Status: Acute Problem details: - outpatient creatinine baseline <1; patient notably had JACK with hospitalization in August as well - likely prerenal 2/2 recent GI illness, in addition to acute respiratory illness - hold nephrotoxins, rehydrate and follow closely, creatinine 09/12/2022 down to 1.3, and on 09/13/2022 and 09/14/2022 down to 0.8. (18) Dehydration: Status: Acute Problem details: Normalized (19) Vomiting and diarrhea: Status: Acute Problem details: - she had this when she 1st presented to the hospital which was thought to be related to viral GI illness and improved in ED. Nausea has since resolved. Three episode of diarrhea yesterday. No diarrhea today. (20) Sinus tachycardia: Status: Acute Problem details: Acute on chronic (21) Declining functional status: Status: Acute Problem details: Patient is having significant functional decline likely due to a combination of chronic opioid therapy and very sedentary lifestyle. Recommend that she not be driving a motor vehicle until she has had a customer service driver safety evaluation. Again recommend transitional care services to patient prior to discharge home. She is willing to consider this. (22) Physical deconditioning: Status: Acute Problem details: Chronic (23) Consolidation of right upper lobe of lung: Status: Acute Problem details: Likely related to aspiration event in her home. DS: Summary Hospital Course Hospital Course: 67-year-old woman presented with altered mental status and increased lethargy.? Was found to have recurrent aspiration pneumonia, with tachycardia, hypotension, tachypnea, hypoxemia, pulmonary infiltrate.? There was concern that she might have acute blood loss from possible gastrointestinal source.? thought she had dark, sticky stools with no obvious overt bright red blood per rectum or hematemesis or hemoptysis.? No obvious gross bleeding here in the hospital.? Recently discharged from our hospital.? According to the patient and her she was doing relatively well at home soon after discharge but then starting 2 days ago she had a a sudden rapid decline. notes how his , the patient, does not always take her medications as prescribed.? Sometimes undertakes her medicines, and sometimes over takes her medicines. Initially required continuous oxygen support with nasal cannula supplementation at rates up to 4 liters/minute. In time she only required did add times when she was asleep. We initiated empiric IV antibiotic therapy with piperacillin and tazobactam. In time we are able to switch to oral Augmentin. In-hospital she completed a full 7 day course of antibiotics. Leukocytosis resolved. Acute kidney injury normalize. Creatinine as high as 3.2 on presentation. By discharge was down to 0.8, her baseline. Did have rhabdomyolysis with this with creatine kinase values of 10,000 on presentation and normalized by time of discharge. Was treated with IV fluids. Weight increased substantially while in hospital. We slowly resumed her diuretic. In regard to her chronic pain, eventually resumed her usual dose of oxycodone 30 mg of the extended release 3 times daily. This is what she had been discharged from the hospital recently. Patient still had immediate release oxycodone at home which she was using on top of extended-release oxycodone. I am suspicious that her mentation change sufficiently this such that while at home she ended up aspirating in great measure to her noncompliance with her medications. Most likely it was not an intentional act but rather her simply using previous prescription that she thought she was still prescribed which had been stopped during her recent hospitalization. Having said that she did not have any opioid withdrawals here in our hospital. Patient asked to be restarted on the immediate release oxycodone, but I indicated to her that she was tolerating the extended-release just fine without any withdrawals in that her symptoms were well controlled and there is no indication for us to add and immediate release oxycodone which she was requesting. In time she understood and agreed. Throughout her hospital stay patient was unable to demonstrate a drive to help herself and be as independent as possible. She required frequent directing and recommending in order to do even the smallest had asks. As much as she wanted to return to her home directly from the hospital given her inability to care for herself we indicated to her that she would benefit from transitional care services for physical strengthening as well as more time to increase her resolved to do all she can to care for herself and be as independent as possible. With her altered mental status, it is hard to discern what is acute and what is old. Clearly when she 1st presented she was lethargic and unable to participate in meaningful dialogue in discussion. Over time she became more awake but still demonstrated inability to recall properly as well as inability to integrate in synthesize new information and to be able to problem solve. Explain to her that she would certainly benefit from formal cognitive testing. Status at Discharge Functional status at discharge: uses cane/walker Overall status at discharge: patient is progressing back to baseline Time Spent with Patient Time attestation: Total time spent providing and/or coordinating discharge services: Time spent: Greater than 30 minutes Exam Narrative: Exam Narrative: Appears at baseline status.? Sometimes has difficulty expressing herself with word-finding difficulties.? This is not new. Alert, oriented to self, place, in part to time and situation. Articulate.? Appears anxious.? Mood and affect are congruent. Lungs seem clear at this time. Heart tones with regular rhythm. Abdomen with active bowel sounds, soft, nontender. Trace edema pretibially on the left, chronic. Moves all 4 extremities. Ambulates with 2 wheeled roller walker, gait belt, and standby assist. Requires assist with many of her ADLs. Still able to feed self after food prep and setup. Const: Vital Signs, click to edit/add: Vital Signs - 24 hr 09/14/22 16:15 09/14/22 16:30 09/14/22 19:00 Temperature 98 F Pulse Rate Pulse Rate [Pulse Oximeter] 64 66 98 Respiratory Rate 16 Blood Pressure [Le ft Arm] 84/54 L Blood Pressure [Ri ght Arm] 91/50 L 98/48 L Pulse Oximetry 93 94 Oxygen Delivery Me thod Nasal Cannula Room Air Room Air Oxygen Flow Rate 96 03/16/23 20:00 09/14/22 20:30 09/14/22 21:00 Temperature Pulse Rate Pulse Rate [Pulse Oximeter] 92 92 86 Respiratory Rate 18 18 20 Blood Pressure [Le ft Arm] 91/63 98/63 144/83 H Blood Pressure [Ri ght Arm] Pulse Oximetry 93 95 Oxygen Delivery Me thod Room Air Room Air Oxygen Flow Rate 09/14/22 23:00 09/14/22 23:00 09/14/22 23:00 Temperature Pulse Rate 92 Pulse Rate [Pulse Oximeter] 88 Respiratory Rate 20 18 Blood Pressure [Le ft Arm] Blood Pressure [Ri ght Arm] Pulse Oximetry 94 Oxygen Delivery Me thod Room Air Oxygen Flow Rate 09/14/22 23:00 09/15/22 03:00 09/15/22 07:00 Temperature 98 F Pulse Rate Pulse Rate [Pulse Oximeter] 92 92 Respiratory Rate 18 18 16 Blood Pressure [Le ft Arm] 130/80 Blood Pressure [Ri ght Arm] 131/85 Pulse Oximetry 94 90 93 Oxygen Delivery Me thod Room Air Room Air Room Air Oxygen Flow Rate 09/15/22 07:00 09/15/22 07:00 09/15/22 11:00 Temperature 98.2 F 97.9 F Pulse Rate Pulse Rate [Pulse Oximeter] 84 84 84 Respiratory Rate 16 16 16 Blood Pressure [Le ft Arm] 134/81 159/100 H Blood Pressure [Ri ght Arm] Pulse Oximetry 93 90 Oxygen Delivery Me thod Room Air Room Air Oxygen Flow Rate Documenting provider has reviewed patient's vital signs: yes DS: Data Data Completed and Pending Completed studies during hospitalization: Procedures Introduction of Other Gas into Respiratory Tract, Via Natural or Artificial Opening (08/20/22) Repair Left Upper Arm Skin, External Approach (08/20/22) Labs on day of discharge: Labs from last 24 hours 09/15/22 09/15/22 09/15/22 04:50 04:50 04:50 WBC RBC Hgb 8.9 L Hct MCV MCH MCHC Plt Count VBG pH VBG pCO2 VBG pO2 VBG HCO3 Sodium 139 Potassium 3.0 L Chloride 104 Carbon Dioxide 32 BUN 7 Creatinine 0.7 Estimated Creat Clear 50.47 Estimated GFR 96 Glucose 100 Lactate Calcium 8.1 L Ionized Calcium Shamar 1.16 Magnesium 1.7 Troponin I 09/14/22 09/14/22 09/14/22 16:08 16:08 15:55 WBC 4.22 L RBC 3.07 L Hgb 8.3 L Hct 26.5 L MCV 86 MCH 27 MCHC 31 L Plt Count 243 VBG pH 7.416 VBG pCO2 51 H VBG pO2 32.7 VBG HCO3 33 H Sodium 136 Potassium 3.2 L Chloride 101 Carbon Dioxide 32 BUN 7 Creatinine 0.8 Estimated Creat Clear 50.47 Estimated GFR 82 Glucose 119 H Lactate 1.7 Calcium 7.8 L Ionized Calcium Shamar 1.08 L Magnesium 1.1 L Troponin I 0.08 H* Imaging Echo: Radiologist's impression: 09/08/2022: Normal LV chamber size, mild concentric left ventricular hypertrophy, hyperdynamic global systolic function, EF greater than 75%. Mild left ventricular outlet tract gradient with Valsalva. No regional wall motion abnormalities. CT Chest/Ab/Pelvis: Attestation: I have reviewed the pertinent imaging results. Radiologist's impression: FINDINGS: Chest: Cardiovascular structures: Heart size is normal.? Thoracic aorta and main pulmonary artery are normal in caliber.? ? Mediastinum and jose luis: No mass or adenopathy. Moderate-sized hiatal hernia. Lungs: Scattered linear atelectasis or scarring. Micronodular opacities throughout the right lung. Pleura and pericardium: No effusions.? Chest wall and axilla: No mass or adenopathy. Elevated right hemidiaphragm. Bones: Unremarkable for age.? Abdomen and Pelvis: Liver: Unremarkable.? Spleen: Unremarkable.? Pancreas: Fatty infiltration of the pancreas. Gallbladder and bile ducts: S/p cholecystectomy. Adrenal glands: Unremarkable.? Kidneys: Unremarkable.? GI tract: Fluid in an otherwise normal appearing colon. Appendix is not seen. Vascular structures: Aortoiliac calcifications. Lymph nodes: Unremarkable.? Miscellaneous: Unremarkable.? No free air or significant free fluid.? Pelvic Organs: Status post hysterectomy. Bones: Internal fixation hardware in the lower lumbar spine and sacroiliac joints. There is levoscoliosis of the lumbar spine. Age-related degenerative changes in the spine. IMPRESSION: Micronodular opacities throughout the right lung concerning for infection, including atypical infections. Discharge Plan Discharge Disposition: [facility] Date of Admission: 09/08/22 23:56 Attending Provider on Discharge: José Anders Primary Care Provider: Provider,Not a Local Condition: Improved Anticipated Discharge Date/Time: 09/15/22 11:55 Discharge Medications: New loperamide 2 mg Capsule 2 mg PO Q4H PRN15 Days Qty: 20 1RF tizanidine 4 mg Tablet 4 mg PO Q8H PRN (Reason: muscle spasticity) Qty: 14 0RF nystatin 100,000 unit/gram Powder 1 applic topical TID PRN (Reason: Rash) 15 Days Qty: 30 0RF ondansetron 4 mg Tablet,Disintegrating 4 mg PO Q4H PRN15 Days Qty: 10 1RF Lactobacillus acidophilus 0.5 mg (100 million cell) Tablet 2 tab PO TIDWM 30 Days Qty: 90 1RF oxycodone 20 mg tablet,oral only,ext.rel.12 hr 20 mg PO TID Qty: 45 0RF Rx Instructions: Take with oxycodone-ER 10 mg for total of 30 mg TID oxycodone 10 mg tablet,oral only,ext.rel.12 hr 10 mg PO TID Qty: 45 0RF Rx Instructions: Take with oxycodone-ER 20 mg for a total of 30 mg TID pregabalin 300 mg capsule 300 mg PO BID Qty: 60 0RF Continued aspirin 325 mg capsule 325 mg PO DAILY metoprolol succinate 25 mg capsule,sprinkle,ER 24hr 25 mg PO DAILY Qty: 30 2RF atorvastatin 40 mg tablet 40 mg PO DAILY Label Comments: TAKE 1 TABLET BY MOUTH EVERY DAY pilocarpine HCl 5 mg tablet 5 mg PO TID Label Comments: TAKE 1 TABLET BY MOUTH THREE TIMES A DAY hydroxyzine HCl 50 mg tablet 50 - 100 mg PO Q6H PRN Label Comments: TAKE 1-2 TABLETS (50-100 MG) BY MOUTH EVERY 6 HOURS IF NEEDED FOR ITCHING OR OTHER tamsulosin 0.4 mg capsule 0.4 mg PO DAILY Label Comments: TAKE 1 CAPSULE BY MOUTH ONCE DAILY AFTER A MEAL. mirtazapine 30 mg tablet 30 mg PO HS Label Comments: TAKE 1 TABLET BY MOUTH AT BEDTIME. levothyroxine 150 mcg tablet 150 mcg PO DAILY Label Comments: TAKE 1 TABLET (150 MCG) BY MOUTH BEFORE BREAKFAST. losartan 25 mg tablet 25 mg PO DAILY Label Comments: TAKE 1 TABLET BY MOUTH EVERY DAY omeprazole 20 mg capsule,delayed release(DR/EC) 20 mg PO DAILY Label Comments: TAKE 1 CAPSULE (20 MG) BY MOUTH ONCE DAILY BEFORE A MEAL. furosemide 20 mg tablet 20 mg PO DAILY Label Comments: TAKE 1 TABLET (20 MG) BY MOUTH EVERY MORNING. IF NEEDED. MAY TAKE IF WEIGHT INCREASES BY 3# OR MORE hydroxychloroquine 200 mg tablet 200 mg PO BID Label Comments: TAKE 1 TABLET BY MOUTH TWICE A DAY albuterol sulfate 90 mcg/actuation HFA aerosol inhaler 1 - 2 puff INHALATION Q4H PRN Label Comments: INHALE 1-2 PUFFS BY MOUTH EVERY 4 HOURS IF NEEDED. ketoconazole 2 % cream 1 applic TOPICAL BID Label Comments: APPLY TO AFFECTED AREA TWICE A DAY buspirone 15 mg tablet 15 mg PO BID Label Comments: TAKE 1 TABLET BY MOUTH TWICE A DAY duloxetine 60 mg capsule,delayed release(DR/EC) 120 mg PO DAILY Label Comments: TAKE 2 CAPSULES (120MG) BY MOUTH ONCE DAILY. Discontinued oxycodone [OxyContin] 10 mg tablet,oral only,ext.rel.12 hr 10 mg PO TID Qty: 30 0RF tizanidine 4 mg tablet 4 - 8 mg PO Q8H PRN (Reason: muscle spasticity) Label Comments: Take 1-2 tablet by mouth every six to eight hours as needed for muscle spasms pregabalin 300 mg capsule 300 mg PO BID Label Comments: TAKE 1 CAPSULE BY MOUTH TWICE A DAY oxycodone [OxyContin] 20 mg tablet,oral only,ext.rel.12 hr 20 mg PO TID Label Comments: TAKE 1 TABLET BY MOUTH THREE TIMES A DAY Discharge Orders: Discharge Order (Routine); Ordered 09/15/22 Ordered By: José Anders Activity Level: Activity as Tolerated and Use Walker Discharge Diet: Heart Healthy (2 gm sodium, low fat) Dysphagia Food: Level 6- Soft & Bite size Follow Up Appointments: [facility] [Outside] (Patient being discharged to [facility]) Provider,Not a Local [Primary Care Provider] - Admit to: SNF Discharge Potential: Fair Length of Stay: <30 days Can use facility standing orders?: Yes Code Status: Full Code TEDs: Bilateral Knee Rehab Potential: Fair Therapy: Physical Therapy and Occupational Therapy Therapy Orders: Evaluate and Treat Oxygen: No Urinary Catheter: No Orders are good >30 days: Yes Signature: José Anders
== END 2022-09-15 12:55 | DRG 871 ==
LOC: ED 20:06 → MEDSURG 09-11 08:47
PROVIDERS: Family Medicine; Internal Medicine; Admitting Provider Family Medicine; Emergency Provider Family Medicine; Visit Provider Family Medicine
DX: A41.9 Sepsis, unspecified organism (principal); J69.0 Pneumonitis due to inhalation of food and vomit; J96.01 Acute respiratory failure with hypoxia; N17.9 Acute kidney failure, unspecified; M62.82 Rhabdomyolysis; I24.8 Other forms of acute ischemic heart disease; K50.90 Crohn's disease, unspecified, without complications; R04.2 Hemoptysis; R11.10 Vomiting, unspecified; R19.7 Diarrhea, unspecified; E86.0 Dehydration; K22.0 Achalasia of cardia; R41.82 Altered mental status, unspecified; F11.90 Opioid use, unspecified, uncomplicated; R01.1 Cardiac murmur, unspecified; R00.0 Tachycardia, unspecified; G47.30 Sleep apnea, unspecified; R53.81 Other malaise; Z79.899 Other long term (current) drug therapy; E87.6 Hypokalemia; E88.09 Other disorders of plasma-protein metabolism, not elsewhere classified; E83.51 Hypocalcemia; E87.79 Other fluid overload; G89.29 Other chronic pain; F41.8 Other specified anxiety disorders; I95.9 Hypotension, unspecified; J44.9 Chronic obstructive pulmonary disease, unspecified; I69.320 Aphasia following cerebral infarction; M51.37 Other intervertebral disc degeneration, lumbosacral region; I25.2 Old myocardial infarction; E66.9 Obesity, unspecified; M35.00 Sjogren syndrome, unspecified; M21.379 Foot drop, unspecified foot; N81.10 Cystocele, unspecified; E78.5 Hyperlipidemia, unspecified; E03.9 Hypothyroidism, unspecified; Z68.36 Body mass index [BMI] 36.0-36.9, adult
CPT/HCPCS: 36415; 51798; 71045; 71250; 74176; 80048; 80053; 80069; 80076; 80306; 81001; 82077; 82140; 82330; 82550; 82565; 82803; 83605; 83735; 83880; 84132; 84145; 84484; 85018; 85025; 85027; 85610; 85730; 86140; 86850; 86900; 86901; 87040; 87045; 87046; 87086; 87427; 87449; 87493; 87631; 93005; 93306; 94761; 97110; 97116; 97162; 97165; 97530; 97535; 99285; 99291; A9270; C9113; J0456; J0610; J1642; J1940; J2270; J2405; J2543; J3370; J3475; J3480; J7030; J7050; J7120